=== PATIENT | female | born 1955 | race Caucasian/White ===

== ENCOUNTER 2019-05-16 10:00 | Outpatient (RCR) | payer BC, OTHER, SELFPAY ==
--- NOTE | 2019-04-24 14:53 | PTOPEVAL ---
Thank you for referring this patient to [facility] [place]. Please review, sign, date and return this plan of care JOHN. Pt seen for PT evaluation today to address hip pain with muscle weakness, decreased hip motion, muscle tightness and gait impairments. She requires additional skilled therapy 2x/wk x 4-6 wk to achieve therapy goals. I agree with and certify that the following plan of care is medically necessary. Referring Physician Date Attending Provider: Maryan Carney NP Referring Provider: *PT Outpatient Evaluation Start: 04/24/19 11:04 Freq: Status: Active Protocol: Document 04/24/19 11:04 ISRA (Rec: 04/24/19 12:03 ISRA [id number]) Therapy Assessment Status Assessment Status Assessment Status Evaluation Outpatient Past Medical History Cardiovascular History Hx Hypertension Yes Musculoskeletal History Hx Arthritis Yes: left hip Other History Hx Cancer Yes: neurendocrine of small gut Hx Chemotherapy Yes Evaluation Information Problem Diagnosis left hip pain Onset 03/20/19 Cause stepping over object Subjective Information She was stepping over a baby Query Text:As Reported By Patient/ gate over the holidays (03/20/ Family 19) and felt she torn something in her inner thigh. She did not see the MD after the injury. She limited the use of the left LE with improved pain quickly with limited use. She now has left buttock pain that will radiate into the left left. She has bouts where she has to limit the weight bearing on left LE due to pain. MD visit revealed OA of left hip. She reports the left hip has been painful for 8 months. She attempted to have therapy , but family oblications limited her time. She take ibuprofen with adequate pain relief. She reports limitations with turning motion, steps, walking longer distances. She is limited with climbing ladders, carpenter assistant. STates her walking speed is less due to something feels stuck. Pr
--- NOTE | 2019-05-14 11:23 | PCPTNOTE ---
Patient called & cancelled scheduled appointment this date no reason given.
--- NOTE | 2019-06-13 11:49 | PCPTNOTE ---
Admitting Provider: Attending Provider: Maryan Quinones NP Patient:Evelin Mireles Date of :1955 Patient has not returned for any further treatments since 05/16/2019, therefore she will be discharged from therapy at this time. She was seen for 5 therapy visits from 04/24/19-05/16/19. The goals have not been achieved. Thank you for referring this patient to [facility]. Please review, sign, date and return this discharge summary JOHN. I have been updated about the patient's current status and I agree with discharge from the above service at this time. Referring Physician Date
== END 2019-06-13 12:37 | disposition home or self-care (01) ==
LOC: ANHPT 10:00
PROVIDERS: PCP Internal Medicine; Visit Provider Nurse Practitioner
DX: M25.552 Pain in left hip (principal)
CPT/HCPCS: 97110; 97140; 97161; 97530

== ENCOUNTER 2020-02-20 12:43 | Emergency (ER) | payer BC, OTHER, SELFPAY ==
--- NOTE | ~2020-02-20 | XR_ITS ---
XR chest 2V DATE: 02/20/2020 13:10 INDICATION: Cough, mid to left-sided chest pain for one week TECHNIQUE: 2 views COMPARISON: 04/11/2017 two-view chest FINDINGS: Normal heart size. No hilar or mediastinal enlargement. Aortic arch calcification. Nipple shadows overlie the lower lungs. No pulmonary infiltrate or consolidation, pleural effusion or pulmonary vascular congestion or pneumothorax. Pectus excavatum. Degenerative disc disease of the cervical spine. Diffuse osteopenia. IMPRESSION: No active cardiopulmonary disease Reviewed, dictated and finalized at location A. RITY REPRESENTATIVE
--- NOTE | 2020-02-20 12:48 | ED.GENADULT ---
HPI - General Adult General Chief complaint: Upper Respiratory Infection Stated complaint: cough/pain in chest Time Seen by Provider: 02/20/20 12:47 Source: patient Mode of arrival: ambulatory Limitations: no limitations History of Present Illness HPI narrative: 64-year-old female patient presents to the [facility] with complaints of a cough, shortness of breath and chest pain for the past 3 weeks. Patient states she has had intermittent fevers have ranged anywhere from low-grade fevers up to 102 for the past couple weeks as well. Patient states she has had some ear pain and a little bit of congestion as well as a headache. Patient also complaining of cough, shortness of breath and some midsternal chest pain. Patient states she feels like the left side of her lung hurts especially when she takes in a deep breath. Patient also reports some nausea but denies vomiting or diarrhea. 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 Patient is unsure of which rib either the left or the right that has metastasized to. Patient states she has been taking ibuprofen for her symptoms. Patient states that she thought it could be the chemo causing her symptoms therefore she has not gotten tested yet for COVID-19. Patient is scheduled to have COVID-19 test done at [facility] tomorrow at 230. Related Data Home Medications Medication Instructions Recorded Confirmed amlodipine 10 mg tablet 10 mg PO DAILY 11/18/19 11/18/19 nebivolol 10 mg tablet 10 mg PO DAILY 11/18/19 11/18/19 octreotide acetate 50 mcg/mL 50 mcg SUB-Q .Q4W ml 11/18/19 11/18/19 injection solution everolimus (antineoplastic) 10 mg PO DAILY 02/20/20 02/20/20 [Afinitor] Allergies Allergy/AdvReac Type Severity Reaction Status Date / Time amoxicillin Allergy Unknown Rash Verified 02/20/20 12:59 lisinopril Allergy Unknown unknown Verified 02/20/20 12:59 minocycline Allergy Unknown Pain Verified 02/20/20 12:59 spironolactone Allergy Unknown Pain Verified 02/20/20 12:59 Review of Systems Review of Systems: Narrative: CONSTITUTIONAL: Positive fever, denies chills, or sweats. EYES: Denies visual changes, redness, or discharge. ENT: Denies rhinorrhea, positive congestion, positive mild sore throat, positive bilateral otalgia. CARDIOVASCULAR: Positive chest pain, denies palpitations, or edema. RESPIRATORY: Positive cough with dyspnea. GASTROINTESTINAL: Denies abdominal pain, positive nausea, denies vomiting, or diarrhea. GENITOURINARY: Denies dysuria or hematuria. SKIN: Denies rash or itching. MUSCULOSKELETAL: Denies back pain, joint pain, or myalgia. NEUROLOGIC: Positive headache, denies numbness, or weakness. PSYCHIATRIC: Denies anxiety or depression. [facility] Past Medical History Medical History Hypertension Neuroendocrine cancer Post-menopausal Surgical History Surgical History Hx of LASIK Family History Family History Grandparent Family history of Alzheimer's disease, Onset Age: 86 Sibling Family history of malignant neoplasm of thyroid Other Family history of arthritis Family history of kidney disease Family history of mental disorder Family history of thyroid disease Hypertension Social History Social History Smoking status: Former smoker Smoking end date: 03/26/04 Alcohol intake: current Exam Narrative: Exam Narrative: GENERAL: Well-appearing, well-nourished, and in no acute distress. HEAD: Normocephalic, atraumatic. EYES: PERRLA and EOMI. ENT: Nares clear, no rhinorrhea or epistaxis. Mucous membranes moist. Posterior pharynx with no erythema, tonsillectomy, exudates or lesions present. The bilateral TMs do appear slightly
[2020-02-20 12:50] VITALS: BP 147/89; PULSE 87; RESP 20; TEMP 38.5; O2SAT 99
--- NOTE | 2020-02-20 13:06 | ECG_ITS ---
Measurements Intervals [place] Rate: 78 P: 67 PA: 175 QRS: 56 QRSD: 88 T: 66 QT: 369 QTc: 421 Interpretive Statements SINUS RHYTHM BORDERLINE ST-T WAVE ABNORMALITY- HIGH LATERAL LEADS BORDERLINE ECG Electronically Signed On 02-21-2020 7:49:02 [employer]AD [employer]UCK [employer] by Huy Thompson D.O.
== END 2020-02-20 13:32 | disposition home or self-care (01) ==
PROVIDERS: Emergency Provider Nurse Practitioner Family; PCP Internal Medicine
DX: J06.9 Acute upper respiratory infection, unspecified (principal); Z20.828 Contact with and (suspected) exposure to other viral communicable diseases; Z87.891 Personal history of nicotine dependence; I10 Essential (primary) hypertension
CPT/HCPCS: 71046; 87081; 87804; 87880; 93005; 99213; G0463

== ENCOUNTER 2020-02-26 14:50 | Outpatient (CLI) | payer BC, OTHER, SELFPAY ==
--- NOTE | ~2020-02-26 | XR_ITS ---
EXAMINATION: XR chest 2V DATE: 02/26/2020 15:10 INDICATION: Cough and shortness of breath. Fever and headache. TECHNIQUE: Frontal and lateral views of the chest were obtained. COMPARISON: Chest 2 views 02/20/2020, 04/11/2017, CT abdomen and pelvis 04/11/2017, chest CT 12/11/2011 FINDINGS: There is a diffuse reticulonodular pattern in the lungs. No pleural effusion or pneumothora x. The heart size is normal. Pectus carinatum is noted. IMPRESSION: 1. Worsened diffuse lung disease, consistent with pneumonia. Reviewed, dictated and finalized at location A. BRIDGE ATTENDANT
[2020-02-26 16:07] LABS: Basophils Percent Auto 0.4 % (0.2-1.2); Eosinophils Absolute Auto 0.2 K/mm3 (0-0.3); Eosinophils Percent Auto 3.3 % (0-4.4); Hematocrit 30.5 % (37.0-47.0); Hemoglobin 10.3 g/dL (12.0-15.0); Immature Granulocyte Absolute 0.04 K/mm3 (0.00-0.031); Immature Granulocyte Percent A 0.5 % (0-0.5); Lymphocytes Absolute Auto 2.12 K/mm3 (0.9-3.2); Lymphocytes Percent Auto 28.8 % (18.3-44.2); Mean Corpuscular HGB Conc 33.8 g/dl (32-36); Mean Corpuscular Volume 80.1 fl (80-100); Monocytes Absolute Auto 0.9 K/mm3 (0.1-0.6); Monocytes Percent Auto 11.8 % (2.6-8.5); Neutrophils Absolute Auto 4.1 K/mm3 (1.3-6.7); Neutrophils Percent Auto 55.2 % (45.5-73.1); Platelet Count Result 427 k/mm3 (150-375); Red Blood Count 3.81 M/mm3 (4.2-5.4); Red Cell Distribution Width 12.5 % (11.5-14.5); White Blood Count 7.4 K/mm3 (4.5-10.0)
[2020-02-26 16:18] LABS: Alanine Aminotransferase 24 U/L (4-35); Albumin Level 3.6 g/dL (3.5-5.1); Alkaline Phosphatase 87 U/L (38-126); Anion Gap 6 mmol/L (8-16); Aspartate Amino Transferase 43 U/L (14-36); Bilirubin,Total 0.3 mg/dL (0.2-1.3); Blood Urea Nitrogen 14 mg/dL (7-17); Calcium 8.9 mg/dL (8.4-10.2); Carbon Dioxide 30 mmol/L (22-30); Chloride 95 mmol/L (98-107); Estimated Glomerular Filt Rate 56; Glucose 89 mg/dL (65-105); Potassium 4.2 mmol/L (3.4-5.0); Sodium 131 mmol/L (137-145)
== END 2020-02-26 14:51 | disposition home or self-care (01) ==
PROVIDERS: PCP Internal Medicine; Visit Provider Clinical Nurse Specialist
DX: R05 Cough (principal); R06.02 Shortness of breath; R50.9 Fever, unspecified; R51.9 Headache, unspecified; R91.8 Other nonspecific abnormal finding of lung field
CPT/HCPCS: 36415; 71046; 80053; 85025

== ENCOUNTER 2020-06-25 09:22 | Outpatient (CLI) | payer BC, OTHER, SELFPAY ==
--- NOTE | ~2020-06-25 | XR_ITS ---
EXAMINATION: XR ankle LT min 3V DATE: 06/25/2020 09:40 INDICATION: Left ankle pain and swelling TECHNIQUE: Anteroposterior, oblique, mortise, and lateral views of the left ankle were obtained. COMPARISON: None. FINDINGS: Alignment is normal. No fracture. Joint spaces are well maintained. No cortical erosions, periosteal reaction or suspicious lytic or blastic bone lesions. No ankle joint effusion. Soft tissue swelling about the ankle both medially and laterally. IMPRESSION: 1. No osseous abnormality. Reviewed, dictated and finalized at location A. IMPRESSION: 1. No osseous abnormality.
== END 2020-06-25 09:23 | disposition home or self-care (01) ==
LOC: ANHIMG 09:25
PROVIDERS: PCP Internal Medicine; Visit Provider Nurse Practitioner
DX: M25.572 Pain in left ankle and joints of left foot (principal)
CPT/HCPCS: 73610

== ENCOUNTER 2021-06-08 08:49 | Outpatient (CLI) | payer MEDICARE, BC, OTHER, SELFPAY ==
--- NOTE | ~2021-06-08 | CT_ITS ---
EXAMINATION: CTA abd aorta runoff DATE: 06/08/2021 09:56 INDICATION: Peripheral arterial disease. TECHNIQUE: Computed tomographic angiography (CTA) of the abdominal, pelvis, and both lower extremitie s was performed with 150 mL Omnipaque-350 intravenous contrast. Automated exposure control and iterat griffin reconstruction technique were employed. The dose-length product was 671.85 mGy-cm. Maximum intens ity projection 3D-reconstructions of the arteries were created by the technologist on a separate work station. COMPARISON: CT abdomen and pelvis 04/11/17 FINDINGS: ABDOMINAL AORTA AND ITS BRANCHES: There is atherosclerosis of the abdominal aorta. No aneurysm or dissection. There is chronic total oc clusion of origin of celiac axis. There is no significant stenosis of superior mesenteric artery, the renal arteries, or inferior mesenteric artery. PELVIC VASCULATURE: There is mild stenosis of the common iliac arteries and internal iliac arteries. There is no signific ant stenosis of the external iliac arteries. RIGHT LOWER EXTREMITY VASCULATURE: There is mild stenosis of right common femoral artery. There is no significant stenosis of the profun da femoral artery, superficial femoral artery, popliteal artery, tibioperoneal trunk, anterior tibial artery, posterior tibial artery, or peroneal artery. LEFT LOWER EXTREMITY VASCULATURE: There is mild stenosis of left common femoral artery. There is no significant stenosis of the profund a femoral artery, superficial femoral artery, popliteal artery, tibioperoneal trunk, anterior tibial artery, posterior tibial artery, or peroneal artery. ADDITIONAL FINDINGS: The visualized portions of the lung bases demonstrate mild atelectasis. No pleural effusion. There is diffusely heterogeneous attenuation of the liver. The gallbladder, spleen, pancreas, adrenal glands are normal. There is cortical thinning of the kidneys. The common duct is dilated to 11 mm. The left periuterine and ovarian veins are enlarged, consistent with pelvic venous insufficiency. There are no dilated loops of bowel. The appendix is not visualized. There are numerous hyperenhancing masses in the peritoneum measuring up to 10 mm. There is a 3.3 x 2.1 cm hyperenhancing mass at the root of the small bowel mesentery. There is a small volume of pelvic ascites. IMPRESSION: 1. No significant arterial occlusive disease. 2. 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 3. Heterogeneous liver attenuation, likely a combination of transient hepatic attenuation difference and ill-defined metastatic carcinoid. Reviewed, dictated and finalized at location A. IMPRESSION: 1. No significant arterial occlusive disease. 2. 3.3 x 2.1 cm hyperenhancing mass at the root of the small bowel mesentery an d numerous chronic peritoneal masses, consistent with peritoneal carcinomatosis , most likely carcinoid. 3. Heterogeneous liver attenuation, likely a combination of transient hepatic a ttenuation difference and ill-defined metastatic carcinoid.
[2021-06-08 09:35] LABS: Estimated Glomerular Filt Rate 50
== END 2021-06-08 08:50 | disposition home or self-care (01) ==
PROVIDERS: PCP Internal Medicine; Visit Provider Internal Medicine Cardiovascular Disease
DX: I73.9 Peripheral vascular disease, unspecified (principal)
CPT/HCPCS: 75635; Q9967

== ENCOUNTER 2021-11-14 06:04 | Emergency (ER) | payer MEDICARE, BC, OTHER, SELFPAY ==
[2021-11-14] VITALS (17 sets, daily range): BP systolic 122–156; BP diastolic 62–89; PULSE 60–68; RESP 12–20; TEMP 36.7; O2SAT 100
--- NOTE | ~2021-11-14 | XR_ITS ---
EXAMINATION: XR chest 1V portable DATE: 11/14/2021 07:10 INDICATION: Chest pain. TECHNIQUE: A single frontal view of the chest was obtained. COMPARISON: Chest 2 views 02/26/2020 FINDINGS: There is mild atelectasis in right lower lung zone. No pleural effusion or pneumothorax. Th e heart size is normal. IMPRESSION: 1. Mild atelectasis in right lower lung zone. Reviewed, dictated and finalized at location A.
--- NOTE | ~2021-11-14 | CT_ITS ---
EXAMINATION: CTA chest PE protocol DATE: 11/14/2021 08:41 INDICATION: Chest pain. TECHNIQUE: Computed tomography angiography (CTA) of the chest was performed with 100 mL Omnipaque-350 intravenous contrast timed to evaluate the pulmonary arteries. Coronal maximum intensity projection 3D-reconstructions were created by the technologist. Automated exposure control and iterative reconst ruction technique were employed. The dose-length product was 205.20 mGy-cm. COMPARISON: CT abdomen and pelvis 06/08/2021 FINDINGS: There is mild emphysema. There is mild scarring at the lung apices. There is a 4 mm nodule at left major fissure, likely benign. There is mild atelectasis bilaterally. No pleural effusion. The heart size is normal. There are coronary artery calcifications. There is a moderate-sized pericardia l effusion. There is no pulmonary embolus. There is mild thoracic spondylosis. Pectus excavatum is no fermín. IMPRESSION: 1. No pulmonary embolus. 2. Moderate-sized pericardial effusion. 3. Mild emphysema. 4. Mild scarring at the lung apices. Reviewed, dictated and finalized at location A.
--- NOTE | 2021-11-14 06:13 | ECG_ITS ---
Measurements Intervals [place] Rate: 67 P: 66 TN: 210 QRS: 47 QRSD: 89 T: 69 QT: 429 QTc: 456 Interpretive Statements SINUS RHYTHM WITH FIRST DEGREE AV BLOCK NONSPECIFIC ST ABNORMALITY BORDERLINE ECG COMPARED TO ECG 02/20/2020 13:11:18 FIRST DEGREE AV BLOCK NOW PRESENT Electronically Signed On 11-14-2021 16:19:16 CDT by Christiano Emmanuel M.D.
[2021-11-14 06:54] LABS: Basophils Percent Auto 0.4 % (0.2-1.2); Eosinophils Absolute Auto 0.1 K/mm3 (0-0.3); Eosinophils Percent Auto 1.7 % (0-4.4); Hematocrit 38.9 % (37.0-47.0); Lymphocytes Absolute Auto 2.36 K/mm3 (0.9-3.2); Lymphocytes Percent Auto 50.4 % (18.3-44.2); Mean Corpuscular HGB Conc 33.4 g/dl (32-36); Mean Corpuscular Hemoglobin 26.1 pg (26-34); Mean Platelet Volume 9.8 fl (7.4-10.4); Monocytes Absolute Auto 0.5 K/mm3 (0.1-0.6); Monocytes Percent Auto 11.5 % (2.6-8.5); Neutrophils Absolute Auto 1.7 K/mm3 (1.3-6.7); Platelet Count Result 304 k/mm3 (150-375); Red Blood Count 4.99 M/mm3 (4.2-5.4); White Blood Count 4.7 K/mm3 (4.5-10.0)
[2021-11-14 07:01] LABS: INR 0.9; Partial Thromboplastin Time 28.1 SECONDS (22.3-36.8)
[2021-11-14 07:03] LABS: Alanine Aminotransferase 35 U/L (6-35); Albumin Level 4.2 g/dL (3.5-5.1); Alkaline Phosphatase 86 U/L (38-126); Anion Gap 6 mmol/L (8-16); Aspartate Amino Transferase 49 U/L (14-36); Bilirubin,Total 0.4 mg/dL (0.2-1.3); Blood Urea Nitrogen 17 mg/dL (7-17); Calcium 8.7 mg/dL (8.4-10.2); Carbon Dioxide 35 mmol/L (22-30); Chloride 95 mmol/L (98-107); Estimated CRCL calculation 48 ml/min; Estimated Glomerular Filt Rate > 60; Glucose 125 mg/dL (65-110); Lipase 61 U/L (23-300); Potassium 3.5 mmol/L (3.4-5.0); Sodium 136 mmol/L (137-145)
[2021-11-14] MEDS: ASPIRIN 81 MG CHEWABLE TABLET 324 MG PO (07:03)
[2021-11-14 07:14] LABS: Troponin I < 0.012 ng/mL (0.000-0.034)
--- NOTE | 2021-11-14 08:10 | ED.CHESTPAIN ---
HPI - Chest Pain General Chief Complaint: Chest Pain Stated Complaint: palpitations, CP, COVID+ one week ago Time Seen by Provider: 11/14/21 06:59 Source: RN notes reviewed History of Present Illness HPI narrative: Patient presents emergency department from home for palpitations. Patient states symptoms began this morning states around 5 AM this morning she was laying in bed when she felt like her heart was fluttering states this lasted for approximately 30 minutes and resolved she had no feeling since that time. States the feeling is like her heart is turned sideways and is beating across her chest she notes mild feeling of chest tightness with that feeling she denies any fevers or chills shortness of breath abdominal pain nausea vomiting or any other symptoms. Patient states she was diagnosed with COVID-19 approximately 1 week ago. Related Data Home Medications Medication Instructions Recorded Confirmed amlodipine 10 mg tablet 10 mg PO DAILY 11/18/19 07/26/21 nebivolol 10 mg tablet (Bystolic) 10 mg PO DAILY 11/18/19 07/26/21 octreotide acetate 50 mcg/mL 50 mcg subcut .[id number] 04/26/21 07/26/21 injection solution aspirin 81 mg chewable tablet 81 mg PO DAILY 06/01/21 07/26/21 everolimus (antineoplastic) 10 mg 5 mg PO DAILY 07/26/21 07/26/21 tablet ferric citrate 210 mg iron tablet 210 mg PO DAILY 07/26/21 07/26/21 Allergies Allergy/AdvReac Type Severity Reaction Status Date / Time amoxicillin Allergy Unknown Rash Verified 11/14/21 07:06 minocycline Allergy Unknown Pain Verified 11/14/21 07:06 spironolactone Allergy Unknown Pain Verified 11/14/21 07:06 Review of Systems Review of Systems: Reports COVID Gen.: Denies fevers or chills Eyes: Denies eye pain or visual change ENT: Denies congestion Respiratory: Denies shortness of breath or cough CV: see HPI GI: Denies abdominal pain nausea, emesis or diarrhea Musculoskeletal: Denies back pain or muscle pain Neuro: Denies numbness, tingling, weakness or focal weakness Skin: Denies rash Except as documented, all other systems reviewed and negative PMFSH Past Medical History Medical History Hip pain Hypertension Hypertension Neuroendocrine cancer Neuroendocrine cancer Disorder Post-menopausal Post-menopausal Surgical History Surgical History Hx of LASIK Hx of LASIK Family History Family History Grandparent Family history of Alzheimer's disease, Onset Age: 86 Sibling Family history of malignant neoplasm of thyroid Father Heart failure Mother Heart failure Endocrine disorder Grandparent Alzheimer disease Kidney failure Sibling Thyroid cancer Cancer Other Family history of arthritis Family history of kidney disease Family history of mental disorder Family history of thyroid disease Hypertension Social History Social History Smoking status: Former smoker Tobacco type: cigarettes Smoking end date: 03/26/04 Alcohol intake: current Exam Narrative: APPEARANCE: No acute distress, nontoxic, resting in bed EYES: EOMI HEENT: Normocephalic, atraumatic, OMM RESPIRATORY: No respiratory distress Clear to auscultation bilaterally with no rhonchi wheezing or rales. CARDIOVASCULAR: Regular rate and rhythm without murmurs rubs or gallops. ABDOMINAL: Soft, nontender, nondistended, no rebound or guarding MUSCULOSKELETAl: Moves all extremities. No clubbing, cyanosis or edema. NEURO: Awake and alert. Following commands, speech normal, no focal deficits SKIN:: Warm, dry. No rashes lesions or abrasions PSYCHIATRIC: Normal affect/mood, Course Course Emergency Course: Called discussed with RANDY Amaro for Dr. Emmanuel presentation and work-up I discussed the pericardial effusion she will discuss with on-call ca
[2021-11-14 08:19] LABS: D Dimer 0.77 ug/mL (<0.48)
[2021-11-14 09:24] LABS: Troponin I < 0.012 ng/mL (0.000-0.034)
== END 2021-11-14 11:19 | disposition home or self-care (01) ==
PROVIDERS: General Practice; Emergency Provider Emergency Medicine; PCP Internal Medicine
DX: I31.3 Pericardial effusion (noninflammatory) (principal); R00.2 Palpitations; I10 Essential (primary) hypertension; Z86.16 Personal history of COVID-19
CPT/HCPCS: 36415; 71045; 71275; 80053; 83690; 84484; 85025; 85380; 85610; 85730; 93005; 99284; A9270; Q9967

== ENCOUNTER 2022-06-06 11:35 | Outpatient (CLI) | payer MEDICARE, BC, OTHER, SELFPAY ==
--- NOTE | ~2022-06-06 | XR_ITS ---
EXAMINATION: XR chest 2V DATE: 06/06/2022 11:57 INDICATION: Cough and fever TECHNIQUE: PA and lateral views of the chest were obtained. COMPARISON: Chest radiograph and CT dated 11/14/2021 FINDINGS: Mild hyperexpansion of lungs consistent with emphysema better appreciated on prior chest CT. Mild theresa pical pleural-parenchymal scarring. New mild opacities at the left lung base. Symmetric nipple shadow s project between the anterior fifth and sixth ribs on both the left and right. No other airspace opa cities, pulmonary edema, pleural effusion or pneumothorax. The cardiomediastinal silhouette is normal . Pectus excavatum. IMPRESSION: 1. New mild opacities at the left lung base which could represent atelectasis or pneumonia. 2. Mild emphysema. Reviewed, dictated and finalized at location L. IMPRESSION: 1. New mild opacities at the left lung base which could represent atelectasis o r pneumonia. 2. Mild emphysema.
== END 2022-06-06 11:36 | disposition home or self-care (01) ==
PROVIDERS: PCP Internal Medicine; Visit Provider Clinical Nurse Specialist
DX: R05.9 Cough, unspecified (principal); Z87.01 Personal history of pneumonia (recurrent); J43.9 Emphysema, unspecified; R91.8 Other nonspecific abnormal finding of lung field
CPT/HCPCS: 71046

== ENCOUNTER 2022-06-17 08:06 | Emergency (ER) | payer MEDICARE, BC, OTHER, SELFPAY ==
--- NOTE | ~2022-06-17 | XR_ITS ---
EXAMINATION: XR chest 2V DATE: 06/17/2022 08:35 INDICATION: Chest pain and dizziness TECHNIQUE: PA and lateral views of the chest are obtained. COMPARISON: 06/06/2022 FINDINGS: The lungs are free of acute opacities. No pleural effusion or pneumothorax. The cardiomedia stinal silhouette is normal. There is mild thoracic spondylosis. IMPRESSION: 1. No acute cardiopulmonary abnormality. Reviewed, dictated and finalized at location A.
--- NOTE | 2022-06-17 08:09 | ECG_ITS ---
Measurements Intervals [place] Rate: 84 P: [place]: 0 QRS: 71 QRSD: 93 T: 76 QT: 381 QTc: 453 Interpretive Statements SINUS RHYTHM WITH MARKED FIRST DEGREE AV BLOCK BORDERLINE R WAVE PROGRESSION, ANTERIOR LEADS BORDERLINE T WAVE ABNORMALITY- ANTERIOR LEADS BASELINE ARTIFACT- I, II, III, AVR, AVL, AVF ABNORMAL ECG COMPARED TO ECG 11/14/2021 06:23:55 NO SIGNIFICANT CHANGES Electronically Signed On 06-17-2022 16:26:41 CDT by Huy Thompson D.O.
[2022-06-17 08:10] VITALS: BP 115/77; PULSE 85; RESP 17; TEMP 36.6; O2SAT 100
[2022-06-17 08:13] VITALS: PULSE 85
[2022-06-17 08:24] LABS: Basophils Absolute Auto 0.1 K/mm3 (0.0-0.1); Basophils Percent Auto 0.8 % (0.2-1.2); Eosinophils Absolute Auto 0.4 K/mm3 (0-0.3); Hematocrit 38.5 % (37.0-47.0); Hemoglobin 12.6 g/dL (12.0-15.0); Immature Granulocyte Absolute 0.02 K/mm3 (0.00-0.031); Immature Granulocyte Percent A 0.3 % (0-0.5); Mean Corpuscular HGB Conc 32.7 g/dl (32-36); Mean Corpuscular Hemoglobin 25.2 pg (26-34); Monocytes Absolute Auto 0.6 K/mm3 (0.1-0.6); Monocytes Percent Auto 8.1 % (2.6-8.5); Neutrophils Absolute Auto 3.5 K/mm3 (1.3-6.7); Neutrophils Percent Auto 46.8 % (45.5-73.1); Platelet Count Result 516 k/mm3 (150-375); Red Cell Distribution Width 12.5 % (11.5-14.5); White Blood Count 7.4 K/mm3 (4.5-10.0)
[2022-06-17 08:35] LABS: INR 1.1; Partial Thromboplastin Time 31.5 SECONDS (22.3-36.8); Prothrombin Time 13.3 Seconds (11.1-14.7)
[2022-06-17 08:38] LABS: Alanine Aminotransferase 34 U/L (6-35); Albumin Level 4.3 g/dL (3.5-5.1); Alkaline Phosphatase 144 U/L (38-126); Anion Gap 9 mmol/L (8-16); Aspartate Amino Transferase 51 U/L (14-36); Bilirubin,Total 0.5 mg/dL (0.2-1.3); Blood Urea Nitrogen 20 mg/dL (7-17); Calcium 9.2 mg/dL (8.4-10.2); Carbon Dioxide 29 mmol/L (22-30); Chloride 99 mmol/L (98-107); Estimated CRCL calculation 43 ml/min; Estimated Glomerular Filt Rate 55; Glucose 137 mg/dL (65-110); Lipase 87 U/L (23-300); Potassium 3.4 mmol/L (3.4-5.0); Sodium 137 mmol/L (137-145)
[2022-06-17] MEDS: ASPIRIN 81 MG CHEWABLE TABLET 324 MG PO (08:41)
[2022-06-17 08:49] LABS: Troponin I < 0.012 ng/mL (0.000-0.034)
[2022-06-17 09:23] VITALS: BP 123/68; PULSE 68; RESP 17; O2SAT 100
--- NOTE | 2022-06-17 09:23 | ED.CHESTPAIN ---
HPI - Chest Pain General Chief Complaint: Chest Pain Stated Complaint: chest pain Time Seen by Provider: 06/17/22 08:50 History of Present Illness HPI narrative: 67-year-old female history of hypertension, anemia, neuroendocrine cancer and mitral valve regurgitation, presents to the emergency room for evaluation of palpitations. Patient states over the last 3 days she has been experiencing palpitations that lasted anywhere from 5 minutes to 1 hour. Episodes been occurring in the morning. States the palpitations occur when she is laying in bed. Associated with shortness of breath. States that she was seen by her site operations manager last week, and was told to follow-up in 1 year. Patient is also being managed by an research center partner at [facility], had lab work drawn on Sunday. Was told to restart daily iron supplementation. States palpitations began the following day after restarting her iron. Presently denying any chest pain. Related Data Home Medications Medication Instructions Recorded Confirmed amlodipine 10 mg tablet 10 mg PO DAILY 11/18/19 06/06/22 nebivolol 10 mg tablet (Bystolic) 10 mg PO DAILY 11/18/19 06/06/22 octreotide acetate 50 mcg/mL 50 mcg subcut .[id number] 04/26/21 06/06/22 injection solution aspirin 81 mg chewable tablet 81 mg PO DAILY 06/01/21 06/06/22 everolimus (antineoplastic) 10 mg 5 mg PO DAILY 07/26/21 06/06/22 tablet atorvastatin 10 mg tablet 10 mg PO DAILY 06/06/22 06/06/22 levothyroxine 25 mcg tablet 10 mcg PO DAILY 06/06/22 06/06/22 (Synthroid) Allergies Allergy/AdvReac Type Severity Reaction Status Date / Time amoxicillin Allergy Unknown Rash Verified 06/17/22 08:13 minocycline Allergy Unknown Pain Verified 06/17/22 08:13 spironolactone Allergy Unknown Pain Verified 06/17/22 08:13 Review of Systems Review of Systems: CONSTITUTIONAL: Denies fever, chills, or sweats. EYES: Denies visual changes, redness, or discharge. ENT: Denies rhinorrhea, congestion, sore throat, or otalgia. CARDIOVASCULAR: Reports palpitations RESPIRATORY: Denies cough or dyspnea. GASTROINTESTINAL: Reports suprapubic discomfort GENITOURINARY: Denies dysuria or hematuria. SKIN: Denies rash or itching. MUSCULOSKELETAL: Denies back pain, joint pain, or myalgia. NEUROLOGIC: Denies headache, numbness, dizziness, or weakness. PSYCHIATRIC: Denies anxiety or depression. PMFSH Past Medical History Medical History COVID-19 Hip pain Hypertension Hypertension Mitral valve regurgitation Neuroendocrine cancer Neuroendocrine cancer Disorder Post-menopausal Post-menopausal Surgical History Surgical History Hx of LASIK Hx of LASIK Family History Family History Grandparent Family history of Alzheimer's disease, Onset Age: 86 Sibling Family history of malignant neoplasm of thyroid Father Heart failure Mother Heart failure Endocrine disorder Grandparent Alzheimer disease Kidney failure Sibling Thyroid cancer Cancer Other Family history of arthritis Family history of kidney disease Family history of mental disorder Family history of thyroid disease Hypertension Social History Social History (Updated 06/06/22 @ 10:56 by Jesusita Yi) Social History: Caffeine-1 cup daily Smoking status: Former smoker Tobacco type: cigarettes Smoking end date: 03/26/04 Alcohol intake: current Alcohol use details: rarely Lack of Transportation: No Lack of Food: Never True Current Housing: I Have Housing Concerned About Future Housing: No Difficulty Paying Gas/Electric Bills: No Difficulty Paying for Meds: No Currently Unemployed: No Education: Bachelor's Degree Difficulty w/ Childcare or Family Care: No Exam Narrative: GENERAL: Well-appearing, well-nourished, no physical limitations, and in no acute distress. HEAD: Norm
[2022-06-17 10:21] LABS: Appearance Urine Clear (Clear); Bilirubin Urine Negative (Negative); Blood Urine Negative (Negative); Color Urine Yellow (Yellow); Glucose Urine UA Negative (Negative); Ketones Urine Negative (Negative); Leukocyte Esterase Ur Negative LEU/UL (Negative); Nitrate Urine Negative (Negative); Protein Urine Negative (Negative); Specific Grav Ur 1.009 (1.001-1.035); Urobilinogen Urine 0.2 mg/dL (<2.0); pH Urine 7.5 (5.0-9.0)
[2022-06-17 10:22] LABS: Add Urine Microscopic? NO
[2022-06-17 10:58] VITALS: BP 125/61; PULSE 64; RESP 18; O2SAT 100
== END 2022-06-17 11:10 | disposition home or self-care (01) ==
PROVIDERS: Emergency Medicine; Emergency Provider Nurse Practitioner Family; PCP Internal Medicine
DX: R00.2 Palpitations (principal); R53.1 Weakness; I10 Essential (primary) hypertension; Z85.858 Personal history of malignant neoplasm of other endocrine glands; Z79.82 Long term (current) use of aspirin; Z87.891 Personal history of nicotine dependence
CPT/HCPCS: 36415; 71046; 80053; 81003; 83690; 84443; 84484; 85025; 85610; 85730; 93005; 99284; A9270

== ENCOUNTER 2022-09-25 14:57 | Outpatient (CLI) | payer MEDICARE, BC, SELFPAY ==
--- NOTE | ~2022-09-25 | US_ITS ---
EXAMINATION: US arterial ankle brachial ind DATE: 09/25/2022 15:56 INDICATION: Peripheral vascular disease TECHNIQUE: Segmental pressures and plethysmographic and Doppler waveforms of the brachial and lower e xtremity arteries were obtained. COMPARISON: None. FINDINGS: Right and left brachial artery pressures of 175 mm Hg and 164 mm Hg, respectively, are concordant (no rmal difference <= 30 mmHg). The right ankle-brachial index (ILA) is 0.86 (normal >= 0.9-1.0). The right great toe-brachial index (TBI) is 0.66 (normal >= 0.65). Arterial Doppler waveforms are biphasic with brisk systolic upstrokes at both right posterior tibial and dorsalis pedis arteries. The left ILA is 0.90. The left TBI is 0.66. Arterial Doppler waveforms are biphasic with brisk systol ic upstrokes at both left posterior tibial and dorsalis pedis arteries. IMPRESSION: 1. Mild arterial occlusive disease with mildly decreased right ILA and borderline left ILA. Reviewed, dictated and finalized at location B. IMPRESSION: 1. Mild arterial occlusive disease with mildly decreased right ILA and borderli ne left ILA.
== END 2022-09-25 14:58 | disposition home or self-care (01) ==
PROVIDERS: PCP Internal Medicine; Visit Provider Internal Medicine Cardiovascular Disease
DX: M79.605 Pain in left leg (principal); M79.604 Pain in right leg; I73.9 Peripheral vascular disease, unspecified
CPT/HCPCS: 93922

== ENCOUNTER 2022-12-12 08:57 | Emergency (ER) | payer MEDICARE, BC, OTHER, SELFPAY ==
--- NOTE | ~2022-12-12 | XR_ITS ---
EXAMINATION: XR chest 2V DATE: 12/12/2022 09:33 INDICATION: Cough TECHNIQUE: PA and lateral views of the chest are obtained. COMPARISON: 06/17/2022 FINDINGS: The lungs are free of acute opacities. No pleural effusion or pneumothorax. The cardiomedia stinal silhouette is normal. There is mild thoracic spondylosis. IMPRESSION: 1. No acute cardiopulmonary abnormality. Reviewed, dictated and finalized at location L.
--- NOTE | ~2022-12-12 | XR_ITS ---
EXAMINATION: XR lumbar spine 2-3V DATE: 12/12/2022 09:33 INDICATION: Low back pain TECHNIQUE: Anteroposterior and lateral views of the lumbar spine, and cone-down lateral view of the l umbosacral junction were obtained. COMPARISON: CT, 04/11/2017 FINDINGS: Bone alignment is normal. No fracture is identified. There is moderate loss of intervertebr al disc space height at L4-5 and mild loss of intervertebral disc space height throughout the remaind er of the lumbar spine. Small degenerative osteophytes project from the anterior endplates of multipl e vertebral bodies. There is moderate facet joint osteoarthritis of the lower lumbar spine. Calcified atherosclerosis is noted. IMPRESSION: 1. Moderate lumbar spondylosis without acute findings or significant interval change. Reviewed, dictated and finalized at location L. IMPRESSION: 1. Moderate lumbar spondylosis without acute findings or significant interval jaylen landa
--- NOTE | 2022-12-12 09:01 | ED.URI ---
HPI - URI/Sore Throat General Chief Complaint: Upper Respiratory Infection Stated Complaint: CHEST CONGESTION/BACK PAIN Time Seen by Provider: 12/12/22 09:00 Source: patient Mode of arrival: ambulatory Limitations: no limitations History of Present Illness HPI Narrative: Evelin is a 67-year-old female patient presenting to the clinic today with complaints of malaise, cough, chest congestion, and mid low back pain with radiation of pain to the right hip and down the right leg. She reports the back pain is been going on for a couple weeks now. Feels as though she may have pneumonia and she has had pneumonia before and felt this way. Has had some shortness of breath with exertion. She reports a productive cough but is unable to expel the phlegm. History of ruptured disc in her back. MD elicited complaint: cough, rhinorrhea, nasal congestion and other (Malaise, mid low back pain) Related Data Home Medications Medication Instructions Recorded Confirmed amlodipine 10 mg tablet 10 mg PO DAILY 11/18/19 12/12/22 octreotide acetate 50 mcg/mL 50 mcg subcut .[id number] 04/26/21 12/12/22 injection solution levothyroxine 25 mcg tablet 10 mcg PO DAILY 06/06/22 12/12/22 (Synthroid) everolimus (antineoplastic) 7.5 mg 7.5 mg PO DAILY 06/28/22 12/12/22 tablet aspirin 81 mg tablet,delayed 81 mg PO DAILY 12/12/22 12/12/22 release iron 150 mg-C 60 mg-B12 25 1 cap PO DAILY 12/12/22 12/12/22 mcg-folic acid 1 qc-vxyduwe-dd.acid capsule (Ferrex) nebivolol 20 mg tablet 20 mg PO DAILY 12/12/22 12/12/22 pravastatin 20 mg tablet 20 mg PO DAILY 12/12/22 12/12/22 Allergies Allergy/AdvReac Type Severity Reaction Status Date / Time amoxicillin Allergy Unknown Rash Verified 12/12/22 09:01 minocycline Allergy Unknown Pain Verified 12/12/22 09:01 spironolactone Allergy Unknown Pain Verified 12/12/22 09:01 Review of Systems Review of Systems: Pertinent positives per HPI. Patient denies any fever, chills, rash, headache, visual changes, dizziness, chest pain, palpitations, nausea, vomiting, diarrhea, constipation, abdominal pain, or any urinary issues. PMFSH Past Medical History Medical History (Updated 12/12/22 @ 09:48 by Phoenix Beasley APRN) Coronary artery disease (CAD) excluded COVID-19 Hip pain Hypertension Hypertension Mitral valve regurgitation Neuroendocrine cancer Neuroendocrine cancer Disorder Post-menopausal Post-menopausal Surgical History Surgical History Hx of LASIK Hx of LASIK Family History Family History Grandparent Family history of Alzheimer's disease, Onset Age: 86 Sibling Family history of malignant neoplasm of thyroid Father Heart failure Mother Heart failure Endocrine disorder Grandparent Alzheimer disease Kidney failure Sibling Thyroid cancer Cancer Other Family history of arthritis Family history of kidney disease Family history of mental disorder Family history of thyroid disease Hypertension Social History Social History Social History: Caffeine-1 cup daily Smoking status: Former smoker Tobacco type: cigarettes Smoking end date: 03/26/04 Alcohol intake: current Alcohol use details: rarely Lack of Transportation: No Lack of Food: Never True Current Housing: I Have Housing Concerned About Future Housing: No Difficulty Paying Gas/Electric Bills: No Difficulty Paying for Meds: No Currently Unemployed: No Education: Bachelor's Degree Difficulty w/ Childcare or Family Care: No Comments At the time of my signature, I reviewed and agree with the nursing past medical, surgical, social, and family history. There is no relevant family history pertinent to the patient complaint. Exam Narrative: General: Well-developed, well nourished, in no apparent distre
[2022-12-12 09:10] VITALS: BP 114/63; PULSE 67; RESP 18; TEMP 36.6; O2SAT 100
== END 2022-12-12 09:51 | disposition home or self-care (01) ==
PROVIDERS: Emergency Provider Nurse Practitioner Family; PCP Internal Medicine
DX: J06.9 Acute upper respiratory infection, unspecified (principal); M54.41 Lumbago with sciatica, right side; Z87.891 Personal history of nicotine dependence; I25.10 Atherosclerotic heart disease of native coronary artery without angina pectoris; I10 Essential (primary) hypertension; I34.0 Nonrheumatic mitral (valve) insufficiency; Z85.89 Personal history of malignant neoplasm of other organs and systems; Z79.82 Long term (current) use of aspirin
CPT/HCPCS: 71046; 72100; 99214; G0463

== ENCOUNTER 2022-12-18 15:40 | Outpatient (CLI) | payer MEDICARE, BC, OTHER, SELFPAY ==
--- NOTE | ~2022-12-18 | XR_ITS ---
EXAMINATION: XR hip RT min 2V DATE: 12/18/2022 16:04 INDICATION: Right hip pain. TECHNIQUE: 2 views of right hip were obtained. COMPARISON: None. FINDINGS: Bone alignment is normal. No fracture. There is mild right hip osteoarthritis. IMPRESSION: 1. Mild right hip osteoarthritis. Reviewed, dictated and finalized at location A.
== END 2022-12-18 15:41 | disposition home or self-care (01) ==
PROVIDERS: PCP Internal Medicine; Visit Provider Internal Medicine
DX: M16.11 Unilateral primary osteoarthritis, right hip (principal)
CPT/HCPCS: 73502

== ENCOUNTER 2023-01-25 12:30 | Outpatient (RCR) | payer MEDICARE, BC, OTHER, SELFPAY ==
--- NOTE | 2022-12-28 16:53 | OPREHPOC ---
Outpatient Therapy Plan of Care This is a Multidisciplinary Plan of Care that may contain components documented by all disciplines (PT, OT, and ST.) PT Problem 1 PT Problem #1 Knowledge Deficit PT Goal 1 Goal Pt to be IND with issued HEP Target Visit 4 PT Problem 2 PT Problem #2 Pain PT Goal 1 Goal Pt to report back pain no greater than 3/10 in the last week. Target Visit 4 PT Goal 2 Goal Pt to report hip pain no greater than 3/10 in the last week. Target Visit 4 PT Problem 3 PT Problem #3 Pain PT Goal 1 Goal Pt to report 75% improvement in overall symptoms PT Problem 4 PT Problem #4 Impaired Strength PT Goal 1 Goal Pt to demonstrate asmita hip strength of grossly 4+/5 . Target Visit 4
--- NOTE | 2022-12-28 16:53 | PTOPEVAL1 ---
Assessment and note entered by Gabriel Dunn, PT, DPT Evaluation Information Assessment Status Evaluation Diagnosis R hip pain and low back pain Onset 6 weeks Subjective Information Pt states she has had intermittent R hip and back pain for about the last 6 weeks. She states she picked up a 50lb bag of rocks, went on a long road trip, and slept in a hotel bed, she states one of these she attributed to her pain. She states it feels like her hip is dislocating if she steps on it the wrong way. She reports a consistent dull ache at rest, and a sharp stabbing pain if she moves the wrong way. She states her back and her hip pain feel like two different types of pain. Reported Pain Level Pain Score 1,0: Self Report Assessment PT Clinical Summary Evelin presents to therapy today for her intial evaluation with a diagnosis of R hip pain. Today she demonstrates hip flexor tightness, global hip weakness throughout, and increased lateral pelvic motion during ambulation. She demonstrates good hip ROM asmita. She has pain with R hip flexor tendon insertion. Skilled therapy services are indicated to improve hip mobility, improve hip strength, to manage pain, and to return to PLOF. Plan of Care Interventions Electrical Stimulation,Gait Training,Hot Pack/Cold Pack,Manual Therapy,Neuro Re-education,Patient/ Caregiver Educati,Therapeutic Activities, Therapeutic Exercise PT Services Indicated Yes Treatment Frequency and 1x/wk for 4 visits Duration These treatments will address the objective and functional deficits as defined above. The patient will be advanced safely and appropriately in order for the patient to progress towards his/her prior level of function. Additional exercises will be introduced and as well as a comprehensive home exercise program upon discharge, if needed, ?to ensure carryover of functional gains achieved in the clinic. This treatment plan has been reviewed and agreement upon by the patient.
--- NOTE | 2023-01-05 11:59 | PCPTNOTE ---
Patient called & cancelled scheduled appointment this date due to being out of town.
--- NOTE | 2023-01-16 11:48 | PCPTNOTE ---
Patient canceled this date but gave no reason.
--- NOTE | 2023-01-25 12:54 | PTOPDC ---
Assessment and note entered by Gabriel Dunn, PT, DPT Evaluation Information Assessment Status Discharge Diagnosis R hip pain and low back pain Onset 6 weeks Subjective Information Pt states she is doing really well and almost does not even notice hip pain anymore. She states she does her exercises daily and gets a little sore with these. She states she has been doing some of the exercises but not the ones that cause a lot of exertion because she feels like she is anemic, she plans to follow up with her oncologist about this on Sunday. Reported Pain Level Pain Score 0,0: Self Report Assessment PT Clinical Summary Evelin presents to therapy today for her progress report following 3 visits of therapy to treat her R hip pain. Today she reports 97% improvement in overall symptoms. She has met all of her therapy goals and is able to perform her HEP without compensations. She no longer requires skilled services and will be discharged at this time. Plan of Care PT Services Indicated No
== END 2023-01-25 14:17 | disposition home or self-care (01) ==
LOC: ANHGOSHPT 12:30
PROVIDERS: PCP Internal Medicine; Visit Provider Internal Medicine
DX: M25.551 Pain in right hip (principal)
CPT/HCPCS: 97110; 97161; 97530

== ENCOUNTER 2023-04-04 02:04 | Day surgery (SDC) | payer MEDICARE, BC, OTHER, SELFPAY ==
[2023-03-12 14:15] VITALS: BMI 19.6
--- NOTE | 2023-04-02 12:17 | SUR.PREOP ---
Patient called regarding upcoming procedure. Message left pt's voicemail regarding appointment times.
--- NOTE | 2023-04-03 15:00 | PM.HPGS ---
History of Present Illness History of Present Illness Consent: Risks, benefits, and alternatives have been discussed and questions answered. Patient agrees to proceed with procedure. Chief complaint: Iron deficiency anemia Narrative: Evelin Mireles is a 67 year old female referred for colonoscopy due to anemia. Her last hemoglobin was 12.6. She has required frequent iron infusions. Review of Systems Review of Systems: All systems reviewed & are unremarkable except as noted in HPI and below PMFSH Past Medical History Medical History Coronary artery disease (CAD) excluded COVID-19 Hip pain Hypertension Hypertension Mitral valve regurgitation Neuroendocrine cancer Neuroendocrine cancer Disorder Post-menopausal Post-menopausal Surgical History Surgical History Hx of LASIK Hx of LASIK Family History Family History Grandparent Family history of Alzheimer's disease, Onset Age: 86 Sibling Family history of malignant neoplasm of thyroid Father Heart failure Mother Heart failure Endocrine disorder Grandparent Alzheimer disease Kidney failure Sibling Thyroid cancer Cancer Other Family history of arthritis Family history of kidney disease Family history of mental disorder Family history of thyroid disease Hypertension Social History Social History Social History: Caffeine-1 cup daily Smoking packs per day: 1 Smoking cigarettes per day: 20.0 Years smoked: 33 Smoking pack-years: 33.00 Smoking status: Former smoker Tobacco type: cigarettes Smoking end date: 03/26/04 Alcohol intake: current Drinks per week: 5 Alcohol use details: rarely Substance use: never Substance use type: does not use Lack of Transportation: No Lack of Food: Never True Current Housing: I Have Housing Concerned About Future Housing: No Difficulty Paying Gas/Electric Bills: No Difficulty Paying for Meds: No Currently Unemployed: No Education: Bachelor's Degree Difficulty w/ Childcare or Family Care: No Living arrangements: with family Spiritual care concerns: No Meds Home Medications and Allergies Home Medications Medication Instructions Recorded Confirmed Type amlodipine 10 mg tablet 10 mg PO DAILY 11/18/19 04/04/23 History octreotide acetate 50 mcg/mL 50 mcg subcut .[id number] 04/26/21 04/04/23 History injection solution everolimus (antineoplastic) 7.5 mg 7.5 mg PO DAILY 06/28/22 04/04/23 History tablet aspirin 81 mg tablet,delayed 81 mg PO DAILY 12/12/22 04/04/23 History release iron 150 mg-C 60 mg-B12 25 1 cap PO DAILY 12/12/22 04/04/23 History mcg-folic acid 1 [id number]-[id number].acid capsule (Ferrex) nebivolol 20 mg tablet 10 mg PO DAILY 12/12/22 04/04/23 History levothyroxine 50 mcg tablet 50 mcg PO DAILY #1 tablet 02/20/23 04/04/23 Rx (Synthroid) Fish Oil 2 tablet PO DAILY 03/12/23 04/04/23 History Super B Complex 1 tablet PO DAILY 03/12/23 04/04/23 History garlic 1 tablet PO DAILY 03/12/23 04/04/23 History Allergies Allergy/AdvReac Type Severity Reaction Status Date / Time amoxicillin Allergy Unknown Rash Verified 04/04/23 08:11 minocycline Allergy Unknown Pain Verified 04/04/23 08:11 spironolactone Allergy Unknown Pain Verified 04/04/23 08:11 Exam Resp: Auscultation: clear to auscultation bilaterally Cardio: Rate: regular rate Rhythm: regular rhythm GI: GI Palp: Yes Soft to palpation and No Tenderness to palpation present (GI) Assessment and Plan Assessment and plan (1) Iron deficiency anemia: Qualifiers: Iron deficiency anemia type: unspecified iron deficiency Qualified Code(s): D50.9 - Iron deficiency anemia, unspecified Code(s): D50.9 - Iron deficiency anemia, unspecified
[2023-04-04 08:14] VITALS: BP 104/62; PULSE 67; RESP 16; TEMP 36.1; O2SAT 100; BMI 19.0
[2023-04-04] MEDS: LACTATED RINGERS 1,000 ML 150 ML IV CONT (08:27)
--- NOTE | 2023-04-04 08:51 | WPDANESEPPF ---
Anes - Initial Pre Proc Eval Procedure: Operation Date: 04/04/23 09:30 Proposed Procedures p Colonoscopy - Yahir Feliciano MD Date/Time: 04/04/23 08:51 Surgeon: Yahir Feliciano MD Pre Op Diagnosis: Iron deficiency anemia Patient Data Age: 67 Gender: F Height: 1.7 m Weight: 55.1 kg Last Vital Signs Temp 96.9 F L 04/04/23 08:14 Pulse 67 04/04/23 08:14 Resp 16 04/04/23 08:14 BP 104/62 04/04/23 08:14 Pulse Ox 100 04/04/23 08:14 O2 Del Method Room Air 04/04/23 08:14 Allergies Allergy/AdvReac Type Severity Reaction Status Date / Time amoxicillin Allergy Unknown Rash Verified 04/04/23 08:11 minocycline Allergy Unknown Pain Verified 04/04/23 08:11 spironolactone Allergy Unknown Pain Verified 04/04/23 08:11 Home Medications Medication Instructions Recorded Confirmed Type amlodipine 10 mg tablet 10 mg PO DAILY 11/18/19 04/04/23 History octreotide acetate 50 mcg/mL 50 mcg subcut .[id number] 04/26/21 04/04/23 History injection solution everolimus (antineoplastic) 7.5 mg 7.5 mg PO DAILY 06/28/22 04/04/23 History tablet aspirin 81 mg tablet,delayed 81 mg PO DAILY 12/12/22 04/04/23 History release iron 150 mg-C 60 mg-B12 25 1 cap PO DAILY 12/12/22 04/04/23 History mcg-folic acid 1 [id number]-[id number]-mf.acid capsule (Ferrex) nebivolol 20 mg tablet 10 mg PO DAILY 12/12/22 04/04/23 History levothyroxine 50 mcg tablet 50 mcg PO DAILY #1 tablet 02/20/23 04/04/23 Rx (Synthroid) Fish Oil 2 tablet PO DAILY 03/12/23 04/04/23 History Super B Complex 1 tablet PO DAILY 03/12/23 04/04/23 History garlic 1 tablet PO DAILY 03/12/23 04/04/23 History Patient hx anesthesia problems: none Family hx anesthesia problems: none Results Review: All pre-operative results and documents have been reviewed as part of the pre-operative evaluation. [facility] Past Medical History Medical History Coronary artery disease (CAD) excluded COVID-19 Hip pain Hypertension Hypertension Mitral valve regurgitation Neuroendocrine cancer Neuroendocrine cancer Disorder Post-menopausal Post-menopausal Surgical History Surgical History Hx of LASIK Hx of LASIK Family History Family History Grandparent Family history of Alzheimer's disease, Onset Age: 86 Sibling Family history of malignant neoplasm of thyroid Father Heart failure Mother Heart failure Endocrine disorder Grandparent Alzheimer disease Kidney failure Sibling Thyroid cancer Cancer Other Family history of arthritis Family history of kidney disease Family history of mental disorder Family history of thyroid disease Hypertension Social History Social History Social History: Caffeine-1 cup daily Smoking packs per day: 1 Smoking cigarettes per day: 20.0 Years smoked: 33 Smoking pack-years: 33.00 Smoking status: Former smoker Tobacco type: cigarettes Smoking end date: 03/26/04 Alcohol intake: current Drinks per week: 5 Alcohol use details: rarely Substance use: never Substance use type: does not use Lack of Transportation: No Lack of Food: Never True Current Housing: I Have Housing Concerned About Future Housing: No Difficulty Paying Gas/Electric Bills: No Difficulty Paying for Meds: No Currently Unemployed: No Education: Bachelor's Degree Difficulty w/ Childcare or Family Care: No Living arrangements: with family Spiritual care concerns: No Anes - Eval Final PreProcedure Day of Procedure 04/04/23 08:51 Patient weight: normal Heart: regular rate and rhythm Lungs: clear to auscultation Airway: Mallampati scale class II Neurological: alert and oriented Last oral intake: >/= 8 hours ASA classification: III Emergent: no Anesthetic plan: pr
[2023-04-04] MEDS: SIMETHICONE ORAL SUSPENSION 20 MG/0.3 ML 30 ML BOTTLE 0.6 ML IRRIGATION (09:44)
[2023-04-04 09:53] VITALS: BP 84/35; PULSE 52; RESP 16; O2SAT 98
[2023-04-04 10:03] VITALS: BP 87/38; PULSE 55; RESP 18; O2SAT 98
[2023-04-04 10:13] VITALS: BP 124/49; PULSE 60; RESP 22; O2SAT 100
[2023-04-04 10:23] VITALS: BP 131/46; PULSE 60; RESP 18; O2SAT 100
== END 2023-04-04 10:30 | disposition home or self-care (01) ==
PROVIDERS: PCP Internal Medicine; Visit Provider Internal Medicine Gastroenterology
PROC: 0DJD8ZZ Inspection of Lower Intestinal Tract, Via Natural or Artificial Opening Endoscopic (ICD-10-PCS; CPT 45378; principal; 2023-04-04 09:30)
DX: D50.9 Iron deficiency anemia, unspecified (principal); K64.8 Other hemorrhoids; I25.10 Atherosclerotic heart disease of native coronary artery without angina pectoris; I10 Essential (primary) hypertension; Z87.891 Personal history of nicotine dependence
CPT/HCPCS: 45378; J2704; J7120

== ENCOUNTER 2023-05-17 10:19 | Outpatient (CLI) | payer MEDICARE, BC, OTHER, SELFPAY ==
--- NOTE | ~2023-05-17 | XR_ITS ---
Left ankle Technique: AP, oblique, and lateral views were obtained. Clinical History: Pain Findings: No acute fracture or dislocation is seen. Osseous alignment is anatomic. Ankle mortise and other visualized joint spaces are preserved. Soft tissues are otherwise unremarkable. Impression: Unremarkable left ankle. Reviewed, dictated and finalized at location . [employer] Impression: Unremarkable left ankle.
== END 2023-05-17 10:20 | disposition home or self-care (01) ==
PROVIDERS: PCP Internal Medicine; Visit Provider Nurse Practitioner
DX: M25.572 Pain in left ankle and joints of left foot (principal)
CPT/HCPCS: 73610

== ENCOUNTER 2023-11-19 10:18 | Outpatient (CLI) | payer MEDICARE, BC, OTHER, SELFPAY ==
[2023-11-19 14:05] LABS: Basophils Percent Auto 0.6 % (0.2-1.2); Eosinophils Absolute Auto 0.1 K/mm3 (0-0.3); Eosinophils Percent Auto 1.8 % (0-4.4); Hematocrit 39.8 % (37.0-47.0); Hemoglobin 12.6 g/dL (12.0-15.0); Immature Granulocyte Absolute 0.02 K/mm3 (0.00-0.031); Immature Granulocyte Percent A 0.3 % (0-0.5); Lymphocytes Absolute Auto 1.31 K/mm3 (0.9-3.2); Mean Corpuscular HGB Conc 31.7 g/dl (32-36); Mean Corpuscular Hemoglobin 26.4 pg (26-34); Mean Corpuscular Volume 83.3 fl (80-100); Mean Platelet Volume 9.9 fl (7.4-10.4); Monocytes Absolute Auto 0.8 K/mm3 (0.1-0.6); Neutrophils Percent Auto 64.3 % (45.5-73.1); Platelet Count Result 405 k/mm3 (150-375); Red Blood Count 4.78 M/mm3 (4.2-5.4); Red Cell Distribution Width 12.8 % (11.5-14.5); White Blood Count 6.2 K/mm3 (4.5-10.0)
[2023-11-19 15:01] LABS: Alanine Aminotransferase 27 U/L (6-35); Albumin Level 4.1 g/dL (3.5-5.1); Alkaline Phosphatase 91 U/L (38-126); Anion Gap 11 mmol/L (4-12); Aspartate Amino Transferase 62 U/L (14-36); Bilirubin,Total 0.5 mg/dL (0.2-1.3); Blood Urea Nitrogen 21 mg/dL (7-17); Calcium 8.9 mg/dL (8.4-10.2); Carbon Dioxide 30 mmol/L (22-30); Chloride 92 mmol/L (98-107); Estimated Glomerular Filt Rate 50; Glucose 155 mg/dL (65-110); Potassium 3.2 mmol/L (3.4-5.0); Sodium 133 mmol/L (137-145)
[2023-11-19 15:31] LABS: Iron 49 ug/dL (37-170)
[2023-11-19 15:41] LABS: Percent Iron Saturation 18 % (20-50)
== END 2023-11-19 10:19 | disposition home or self-care (01) ==
LOC: ANHGOSHLAB 10:21
PROVIDERS: PCP Internal Medicine; Visit Provider Clinical Nurse Specialist
DX: M79.603 Pain in arm, unspecified (principal); I10 Essential (primary) hypertension; R74.8 Abnormal levels of other serum enzymes; C7A.8 Other malignant neuroendocrine tumors; E03.9 Hypothyroidism, unspecified; D64.9 Anemia, unspecified
CPT/HCPCS: 36415; 80053; 82607; 82728; 83540; 83550; 84443; 85025

== ENCOUNTER 2023-11-19 10:33 | Outpatient (CLI) | payer MEDICARE, BC, OTHER, SELFPAY ==
--- NOTE | ~2023-11-19 | XR_ITS ---
Clinical Indication: Cough PA and lateral views of the chest: Comparison: 12/12/2022 Findings: The lungs are clear, without evidence of focal consolidation or pleural effusion. Cardiome diastinal silhouette is within normal limits. Bones and soft tissues are unremarkable. Impression: Normal chest. Reviewed, dictated and finalized at location . Impression: Normal chest.
== END 2023-11-19 10:34 ==
LOC: GOSHIMG 10:34
PROVIDERS: PCP Clinical Nurse Specialist; Visit Provider Clinical Nurse Specialist
DX: R05.9 Cough, unspecified (principal); R06.02 Shortness of breath
CPT/HCPCS: 71046

== ENCOUNTER 2023-12-07 10:04 | Outpatient (CLI) | payer MEDICARE, BC, OTHER, SELFPAY ==
--- NOTE | ~2023-12-07 | MR_ITS ---
EXAMINATION: MR brain/brain stem wo/w con DATE: 12/07/2023 11:08 INDICATION: Tremor, unspecified. TECHNIQUE: Magnetic resonance imaging (MRI) of the brain and brainstem was performed without and with 10 mL MultiHance intravenous contrast. COMPARISON: None. FINDINGS: There are scattered areas of nonspecific increased T2-weighted signal intensity in the cere bral white matter, which is within normal limits for the patient's age. There is no intracranial hemo rrhage, acute infarction, or abnormal intracranial mass lesion. The ventricles are normal in size. Th e mastoid air cells are normal. There is mucosal thickening in the paranasal sinuses. The orbits are normal. IMPRESSION: 1. Normal aging brain. Reviewed, dictated and finalized at location A. IMPRESSION: 1. Normal aging brain.
== END 2023-12-07 10:05 | disposition home or self-care (01) ==
LOC: MICIMG 10:05
PROVIDERS: PCP Internal Medicine; Visit Provider Clinical Nurse Specialist
DX: R25.1 Tremor, unspecified (principal)
CPT/HCPCS: 70553; A9577

== ENCOUNTER 2024-02-07 08:26 | Outpatient (CLI) | payer MEDICARE, BC, OTHER, SELFPAY ==
[2024-02-07 09:30] LABS: Alanine Aminotransferase 32 U/L (6-35); Albumin Level 4.2 g/dL (3.5-5.1); Alkaline Phosphatase 114 U/L (38-126); Anion Gap 7 mmol/L (4-12); Aspartate Amino Transferase 56 U/L (14-36); Bilirubin,Total 0.5 mg/dL (0.2-1.3); Blood Urea Nitrogen 16 mg/dL (7-17); Calcium 9.3 mg/dL (8.4-10.2); Carbon Dioxide 32 mmol/L (22-30); Chloride 97 mmol/L (98-107); Estimated Glomerular Filt Rate 55; Glucose 125 mg/dL (65-110); Magnesium 2.1 mg/dL (1.6-2.3); Potassium 3.7 mmol/L (3.4-5.0); Sodium 136 mmol/L (137-145)
[2024-02-11 16:19] LABS: Red Blood Cell Folate 662 ng/mL RBC (>280)
== END 2024-02-07 08:27 | disposition home or self-care (01) ==
LOC: ANHLAB 08:27
PROVIDERS: PCP Internal Medicine; Visit Provider Internal Medicine
DX: E87.6 Hypokalemia (principal); E03.9 Hypothyroidism, unspecified; C7A.8 Other malignant neuroendocrine tumors; G62.9 Polyneuropathy, unspecified; I10 Essential (primary) hypertension
CPT/HCPCS: 36415; 80053; 82747; 83735; 84443

== ENCOUNTER 2024-03-10 11:17 | Outpatient (CLI) | payer MEDICARE, BC, OTHER, SELFPAY ==
[2024-03-10 20:36] LABS: Hemoglobin A1C 5.8 % (<5.7)
== END 2024-03-10 11:18 | disposition home or self-care (01) ==
LOC: ANHGOSHLAB 11:19
PROVIDERS: PCP Internal Medicine; Visit Provider Internal Medicine
DX: R73.9 Hyperglycemia, unspecified (principal)
CPT/HCPCS: 36415; 83036

== ENCOUNTER 2024-08-26 13:05 | Outpatient (CLI) | payer MEDICARE, BC, OTHER, SELFPAY ==
--- OUTSIDE RECORDS SUMMARY | 2024-08-26 13:20 | XMS_ITS | Clinical Summary ---
Author Organization [facility] [address] Address [address] [place] [address] Care Team Providers Care Drop Wire Aligner Name Role Phone Noah Mckee MD Unavailable Rick Redmond MD Unavailable [phone] Deandre Mayberry DO Primary Care Provider [phone] Noah Mckee MD Unavailable Ailin Rodríguez MD Unavailable Fantasma Poole Chi, MD Unavailable [phone] Mandy Lee DO Unavailable Allergies Active Allergy Reactions Criticality Noted Date Comments Amoxicillin Rash Medium 04/30/2017 Minocycline Other (See comments) Low 04/26/2017 When given with Spironolactone patient has severe pain and high blood pressure. Spironolactone Other (See comments) Low 06/07/2009 When given with Minocin patient has severe pain and high blood pressure. hypertension Medications vit D3-vit K-bqtucuoyr-kamk [id number] oyzl-cix-gr-mg tablet Take by mouth Active multivitamin tabletIndication s:Vitamin Deficiency Prevention Take 1 tablet by mouth Active vitamin B complex with vitamin C tabletIndication s:Vitamin Deficiency Prevention Take 0.5 tablets by mouth daily Active OCTREOTIDE ACETATE INJ Inject as directed Active rosuvastatin (CRESTOR) 40 mg tablet Take 1 tablet (40 mg total) by mouth nightly 30 tablet 11 4 Active aspirin 81 mg enteric coated tablet TAKE 1 TABLET BY MOUTH DAILY 90 tablet 3 4 Active everolimus (AFINITOR) 7.5 mg tabletIndication s: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 Do not take any tablet that is broken or crushed. 30 tablet 6 4 Active amLODIPine (NORVASC) 10 mg tablet TAKE 1 TABLET(10 MG) BY MOUTH DAILY 30 tablet 11 4 Active Additional Information Patient taking differently: 5 mgoral Daily, Reported on 07/01/2024 gabapentin (NEURONTIN) 100 mg capsule 4 Active propranoloL (INDERAL) 20 mg tablet 4 Active iron aspgly,ps-C-B12- FA-Ca-suc (Ferrex 150 Forte Plus) 150-60-25-1 fp-xi-peo-mg capsuleIndicatio ns:Iron deficiency anemia, unspecified iron deficiency anemia type Take 1 tablet by mouth daily 30 capsule 3 5 Active magnesium gluconate 200 mg tabletIndication s:hypomagnesemia Take 1 tablet (200 mg total) by mouth 2 (two) times a day Active Synthroid 50 mcg tablet Take 1 tablet (50 mcg total) by mouth daily 30 tablet 5 5 07/24/19 26 Active Hospital, Clinic, or Other Facility Administered Medication Ordered Dose Route Frequency Start Date End Date Status tc-99m sestamibi unit dose injection 8.3 millicurieIndications :Diagnostic Radiography 8.3 millicurie IV Once in imaging 12/23/2021 Acti ve aminophylline 250 mg/10 mL injection 150 mgIndications:Abnorma l echocardiogram 150 mg IV As needed 12/15/2021 Active Active Problems Problem Noted Date Diagnosed Date Mixed hyperlipidemia 04/03/2024 Assessment & Plan (04/03/2024 1:17 PM SENIOR CONTROLS ANALYST): Stable continue Crestor Bilateral carotid artery stenosis 10/05/2023 Assessment & Plan (04/03/2024 1:17 PM SENIOR CONTROLS ANALYST): Stable bilateral moderate asymptomatic ICA stenosis. Continue risk factor modification with ASA statin therapy good blood pressure control. Follow up in 1 year with repeat carotid duplex. Assessment & Plan (10/05/2023 11:26 AM CDT): Moderate 50-69% stenosis of bilateral internal carotid arteries. Discussed findings and management of carotid artery disease with the patient. Needs ongoing surveillance with a repeat carotid duplex in 6 months. Continue risk factor modification with ASA statin therapy and good blood pressure control. Primary hypertension 10/05/2023 Assessment & Plan (04/03/2024 1:17 PM SENIOR CONTROLS ANALYST): Stable continue amlodipine Assessment & Plan (10/05/2023 11:26 AM CDT): Stable continue amlodipine 10 mg. 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:Clinical stage from 04/01/2017:Stage IVB(cN1, pM1) - Signed by Laquita Serrano MD on 10/14/2019 Abnormal EKG 08/09/2010 Pneumonitis Resolved Problems Problem Noted Date Diagnosed Date Resolved Date Decreased renal function 03/07/2023 Encounters Date Type Department Care Team Description 08/26/2024 Orders Only [facility] Oncology [address] [place] [id number] Noah Mckee MD 08/11/2024 9:15 AM CDT Infusion [facility] [address] [place] [address] Malignant neuroendocrine neoplasm (HCC) (Primary Dx) 08/11/2024 Orders Only [facility] Oncology [address] [place] [address] [address] [place] [address] Noah Mckee MD 07/14/2024 9:15 AM CDT Infusion [facility] [address] [place] [address] Malignant neuroendocrine neoplasm (HCC) (Primary Dx) 07/10/2024 Results Follow-Up [facility] Endocrinology Metabolism and Lipid [address] [facility] 2[address] [place] [address] Mandy Lee DO Albumin Creatinine Ratio, Urine, Hemoglobin A1c, Vitamin D 25 hydroxy, Additional followed-up results: 2 07/05/2024 Results Follow-Up [facility] Infusion Therapy [address] [facility] [address] [place] [address] Mandy Lee DO XR Spine Cervical 2 or 3 Views 07/01/2024 10:38 AM CDT - 07/01/2024 11:59 PM CDT Hospital [facility] Radiology at [facility] [address] [place] [address] Decreased muscle strength Discharge Disposition: Discharge to home or self care 07/01/2024 10:25 AM CDT Lab [facility] [address] [facility] [address] [place] [address] Prediabetes; Vitamin D deficiency, unspecified; Other hyperlipidemia; Hypothyroidism, unspecified type 07/01/2024 9:30 AM CDT Office Visit [facility] Endocrinology Metabolism and Lipid [address] [facility] [address] [place] [address] Mandy Lee DO Scalp lesion (Primary Dx); Hypothyroidism, unspecified type; Other hyperlipidemia; Vitamin D deficiency, unspecified; Prediabetes; Decreased muscle strength; Carcinoid (except of appendix) (HCC); Primary hypertension 06/29/2024 Orders Only [facility] Oncology [address] [facility] [address] [place] [address] Noah Mckee MD 06/16/2024 9:15 AM CDT Infusion [facility] [address] [place] [address] Malignant neuroendocrine neoplasm (HCC) (Primary Dx) 06/10/2024 Orders Only [facility] Oncology [address] [facility] [address] [place] [address] Noah Mckee MD from Last 3 Months Immunizations Immunization Administration Dates Next Due Influenza, Quadrivalent, Tia l Culture-based MDCK, Preservative Free, Antibiotic Free, Intramuscular 01/12/2020 Influenza, Quadrivalent, Spl it, Preservative Free, Intramuscular 01/20/2019 ZOSTER Recombinant 07/12/2018,03/20/2018 Surgical History Surgery Date Site/Laterality Comments EYE SURGERY lasik SKIN BIOPSY LASIK 2009 Medical History Medical History Date Comments Hypertension Hypertension Peripheral vascular disease Alla pheral vascular disease Arthritis osteroathritis 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 Anemia 02/18/2020 Cancer (HCC) 04/11/2017 Covid-19 Tremors of nervous system 01/31/2024 Restless leg syndrome 01/31/2024 Family History Medical History Relation Name Comments Heart attack Brother Prasanth Anxiety disorder Daughter Hearing loss Father Jimmie Heart attack Father Jimmie Heart disease Father Jimmie Hypertension Father Jimmie Arthritis Maternal Grandfather Binh Galaviz Alzheimer's disease Maternal Grandmother Shana Galaviz Cancer Mother Tameka Angelas Heart failure Mother Tameka Angelas Hypertension Mother Tameka Salvmireyas neuroendocrine tumor Mother Tameka Angelas age 9 1 Diabetes Mother's Sister Sonia Cancer Sister 1 Luisa Salvhus Lung cancer Sister 1 Luisa Salvhus Arthritis Sister 2 Roya Garcia Cancer Sister 2 Roya Garcia Hypertension Sister 2 Roya Garcia Thyroid cancer Sister 2 Roya Garcia Arthritis Sister 3 Gary Hearing loss Sister 3 Gary Hypertension Sister 3 Gary lyme disease Sister 3 Gary Arthritis Sister 4 Chelsie Hypertension Sister 4 Chelsie Melanoma Son 1 Relation Name Status Comments Brother Prasanth Daughter Alive Father Jimmie Maternal Grandfather Binh Galaviz Maternal Grandmother Shana Galaviz Mother Tameka Bellamy Mother's Sister Sonia Sister 1 Luisa Salvhus Sister 2 Roya Garcia Alive Sister 3 Gary Alive Sister 4 Chelsie Alive Son 1 Alive Son 2 Alive Social History Tobacco Use Types Packs/Day Years Used Date Smoking Tobacco: Former Cigarettes 1 33 0 03/26/1971 - 03/26/2004 Passive Smoke Exposure: Past Smokeless Tobacco: Never Alcohol Use Standard Drinks/Week Comments Yes 0 (1 standard drink = 0.6 oz pur e alcohol) AUDIT-C Answer Date Recorded Q1: How often do you have a drink containing alcohol? 4 or more times a week 12/28/2020 Q2: How many drinks containi ng alcohol do you have on a typical day when you are drinking? 1 or 2 Frequency of Binge Drinking Not on file 07/2020 Comments No Sex and Gender Information Value Date Recorded Sex Assigned at Not on file Legal Sex Female 3:08 AM SENIOR CONTROLS ANALYST Gender Identity Not on file Sexual Orientation Not on file Obstetrics History Last Filed Vital Signs Vital Sign Reading Time Taken Comments Blood Pressure 123/63 08/11/2024 9:39 AM CDT Pulse 74 08/11/2024 9:39 AM CDT Temperature 36.7 C (98.1 F) 08/11/2024 9:39 AM CDT Respiratory Rate 16 08/11/2024 9:39 AM CDT Oxygen Saturation 100% 08/11/2024 9:39 AM CDT Inhaled Oxygen Concentration - - Weight 55.3 kg (122 lb) 08/11/2024 9:39 AM CDT Height 167.6 cm (5' 6) 07/01/2024 9:27 AM CDT Body Mass Index 19.69 07/01/2024 9:27 AM CDT Plan of Treatment Health Maintenance Due Date Last Done Comments Breast Cancer Screening-Mammogram 1955 Colon Cancer Screening-Colonoscopy 1955 Depression Screening 1955 Osteoporosis Screening-Bone Density Scan 1955 DTaP/Tdap/Td Vaccine (1 - Tdap) 05/28/1967 Hepatitis B Screening 1974 Pneumococcal vaccine 65+ (1 of 2 - PCV) 05/28/1975 Well Visit 65+ 2021 Fall Risk Assessment 08/12/2024 08/13/2023, 08/07/2022, 09/08/2020 Influenza Vaccine (Season Ended) 2024 01/12/20 20, 01/20/2019 Zoster Vaccine Completed 07/12/2018, 03/20/2018 Hepatitis C Screening Completed 02/10/2019 Colon Cancer Screening-FIT Discontinued 06/15/2022 Procedures Procedure Name Priority Date/Time Associated Diagnosis Comments XR SPINE CERVICAL 2 OR 3 VIEWS Schedule Routine, Read Routine (OP Routine) 07/01/2024 10:52 AM CDT Decreased muscle strength TSH Routine 07/01/2024 10:33 AM CDT Hypothyroidism, unspecified type LIPID PANEL Routine 07/01/2024 10:33 AM CDT Other hyperlipidemia VITAMIN D 25 HYDROXY Routine 07/01/2024 10:33 AM CDT Vitamin D deficiency, unspecified HEMOGLOBIN A1C Routine 07/01/2024 10:33 AM CDT Prediabetes ALBUMIN CREATININE RATIO, URINE Routine 07/01/2024 10:33 AM CDT Prediabetes FIT OCCULT BLOOD, FECAL Routine 06/15/2022 9:30 AM CDT HEPATITIS PANEL, ACUTE Routine 02/10/2019 9:30 AM SENIOR CONTROLS ANALYST Exposure to hepatitis from Last 3 Months or Most Recently Relevant to Health Maintenance Results * XR Spine Cervical 2 or 3 Views (07/01/2024 10:52 AM CDT) Anatomical Region Laterality Modality Spine N/A Computed Radiogr aphy 07/01/2024 11:1 2 AM CDT Impressions 07/01/2024 11:12 AM CDT 1. Multilevel degenerative disc disease most pronounced and moderate at C5-C6 with mild anterolisthesis of C4 on C5. Electronically signed by: Francisco J Sanchez M.D. Narrative 07/01/2024 11:12 AM CDT EXAMINATION: XR SPINE CERVICAL 2 OR 3 VIEWS HISTORY: decrease muscle strength. History of metastatic neuroendocrine carcinoma. FINDINGS: 2 view examination of the cervical spine is read without comparison. There is mild anterolisthesis of C4 on C5. No prevertebral soft tissue swelling. Vertebral body heights are maintained. There is multilevel degenerative disc disease most pronounced and moderate at C5-C6. There is multilevel facet osteoarthritis and uncovertebral hypertrophy. Atherosclerotic vascular calcifications noted. Procedure Note Francisco J Lugo MD - 07/01/2024 EXAMINATION: XR SPINE CERVICAL 2 OR 3 VIEWS HISTORY: decrease muscle strength. History of metastatic neuroendocrine carcinoma. FINDINGS: 2 view examination of the cervical spine is read without comparison. There is mild anterolisthesis of C4 on C5. No prevertebral soft tissue swelling. Vertebral body heights are maintained. There is multilevel degenerative disc disease most pronounced and moderate at C5-C6. There is multilevel facet osteoarthritis and uncovertebral hypertrophy. Atherosclerotic vascular calcifications noted. IMPRESSION: 1. Multilevel degenerative disc disease most pronounced and moderate at C5-C6 with mild anterolisthesis of C4 on C5. Electronically signed by: Francisco J Sanchez M.D. us Mandy Lee DO IMG XR PROCEDURES Final Result * (ABNORMAL) Albumin Creatinine Ratio, Urine (07/01/2024 10:33 AM CDT) Albumin Ur 76.8 mg/L Comment: Interpretive Data No reference range established. Current interpretive data was last revised 2018. Creatinine Ur 162.5 mg/dL [facility] Comment: Interpretive Data No reference range established. Current interpretive data was last revised 2018. Albumin Creatinine Ratio, Ur 47(H) 1 - 29 mg/g [facility] Urine 07/01/2024 10:3 3 AM CDT 07/01/2024 1:40 PM CDT Mandy Lee DO LAB URINE ORDERABLES Fi nal Result Performing Organization Address [facility] Co de Phone Number [facility] Department [place] [address] * Vitamin D 25 hydroxy (07/01/2024 10:33 AM CDT) Vitamin D 25-OH 60 30 - 80 ng/mL Blood 07/01/2024 10:3 3 AM CDT 07/01/2024 1:40 PM CDT us Mandy Lee DO LAB BLOOD ORDERABLES Fi nal Result Performing Organization Address City/[facility] Co de Phone Number [facility] [place] [address] * TSH (07/01/2024 10:33 AM CDT) Pathologist [facility] Thyroid Stimulating Hormone 1.94 0.30 - 4.20 mcIUnit/mL Blood 07/01/2024 10:3 3 AM CDT 07/01/2024 1:40 PM CDT [facility] LAB BLOOD ORDERABLES Fi nal Result Performing Organization Address [facility] [place] [address] * (ABNORMAL) Hemoglobin A1c (07/01/2024 10:33 AM CDT) [facility] Hgb A1C 6.1(H) 4.0 - 5.6 % Estimated Average Glucose 128 mg/dL [facility] Comment: The ADA recommends reporting an estimated Average Glucose (eAG) with all Hemoglobin A1c results using the equation derived from a study of 507 normal and diabetic adults. Minority populations were underrepresented and children were not included. (Diabetes Care 2020; 43(S1): S66-S76). The eAG is not equivalent to a fasting glucose. Blood 07/01/2024 10:3 3 AM CDT 07/01/2024 1:41 PM CDT Mandy Suzette Jesus DO LAB BLOOD ORDERABLES Fi nal Result Performing Organization Address [facility] Co de Phone Number [facility] [place] [address] * Lipid panel (07/01/2024 10:33 AM CDT) [facility] Cholesterol 167 30 - 199 mg/dL Comment: Interpretive Data Ages < or = 19 years Acceptable: <170 mg/dL Borderline high: 170-199 mg/dL High: >or= 200 mg/dL Ages > or = 20 years Desirable: <200 mg/dL Borderline high: 200-239 mg/dL High: >or= 240 mg/dL Literature References: 1. Expert Panel on Integrated Guidelines for Cardiovascular Health and Risk Reduction in Children and Adolescents. Pediatrics 2011;128:S213 2. NCEP Expert Panel. Circulation 2004;110:227 Current Interpretive Data was last revised on 2017. Triglycerides 85 <=149 mg/dL [facility] Comment: Interpretive Data Ages < or = 9 years Acceptable: <75 mg/dL Borderline high: 75-99 mg/dL High: >or= 100 mg/dL Ages 10 to 20 years Acceptable: <90 mg/dL Borderline high: 90-129 mg/dL High: >or= 130 mg/dL Ages > or = 20 years Desirable: <150 mg/dL Borderline high: 150-199 mg/dL High: 200-499 mg/dL Very high: >or= 499 mg/dL Literature References: 1. Expert Panel on Integrated Guidelines for Cardiovascular Health and Risk Reduction in Children and Adolescents. Pediatrics 2011;128:S213 2. NCEP Expert Panel. Circulation 2004;110:227 Current Interpretive Data was last revised on 2017. HDL 81 >=40 mg/dL [facility] Comment: Interpretive Data Ages < or = 19 years Acceptable: >45 mg/dL Borderline low: 40-45 mg/dL Low: <40 mg/dL Ages > or = 20 years Desirable: >or= 60 mg/dL Low: <40 mg/dL Literature References: 1. Expert Panel on Integrated Guidelines for Cardiovascular Health and Risk Reduction in Children and Adolescents. Pediatrics 2011;128:S213 2. NCEP Expert Panel. Circulation 2004;110:227 Current Interpretive Data was last revised on 2017. LDL, calculated 70 <=129 mg/dL [facility] Comment: Interpretive Data Ages < or = 19 years Acceptable: <110 mg/dL Borderline high: 110-129 mg/dL High: >or= 130 mg/dL Ages > or = 20 years Optimal: <100 mg/dL Near optimal: 100-129 mg/dL Borderline high: 130-159 mg/dL High: >160 mg/dL Calculated using the Fontaine LDL-C estimating equation. This equation was implemented on 2023. Prior to this date LDL-C was estimated using the Friedewald equation. Literature References: 1. Expert Panel on Integrated Guidelines for Cardiovascular Health and Risk Reduction in Children and Adolescents. Pediatrics 2011;128:S213 2. NCEP Expert Panel. Circulation 2004;110:227 3. Zhen Sky et al. DIONISIO Cardiol. 2019July 24;5(5):540-548. doi: 10.1001/jamacardio.2020.0013 Current Interpretive Data was last revised on 2023. Non-HDL Cholesterol 86 mg/dL [facility] Comment: Interpretive Data Ages < or = 19 years Acceptable: <120 mg/dL Borderline high: 120-144 mg/dL High: >145 mg/dL Ages > or = 20 years When triglycerides are >200 mg/dL, Non-HDL cholesterol is a secondary target of therapy with treatment goals that are 30 mg/dL greater than the LDL cholesterol target. Literature References: 1. Expert Panel on Integrated Guidelines for Cardiovascular Health and Risk Reduction in Children and Adolescents. Pediatrics 2011;128:S213 2. NCEP Expert Panel. Circulation 2004;110:227 Current Interpretive Data was last revised on 2017. Chol/HDL ratio 2 [facility] Blood 07/01/2024 10:3 3 AM CDT 07/01/2024 1:40 PM CDT us Mandy Lee DO LAB BLOOD ORDERABLES Fi nal Result [facility] Department of Laboratories [place], [place] [id number] * FIT occult blood, fecal (06/15/2022 9:30 AM CDT) [facility] Occult blood, fecal Negative Negative [facility] - 01 06/15/2022 9:30 AM CDT 06/15/2022 Comment:ST Monet [facility] - 06/16/2022 4:11 PM CDT Performed at: - [address] [id number] School Bus Mechanic: Abiel Cruz PhD, Phone: [phone] us Noah Mckee MD LAB BODY FLUIDS AND STOOL S ORDERABLES Final Result [facility] - 01 * Hepatitis panel, acute (02/10/2019 9:30 AM SENIOR CONTROLS ANALYST) Hep A IgM Negative Negative [facility] Hep B core IgM Negative Negative [facility] Hep C Ab Negative Negative [facility] HepBsAg Nonreactive Nonreactive [facility] Blood specimen (specimen) 02/10/2019 9:30 AM SENIOR CONTROLS ANALYST 02/10/2019 10:33 AM SENIOR CONTROLS ANALYST us Noah Mckee MD LAB MICROBIOLOGY - GENERA L ORDERABLES Final Result [facility] [address] Department of Laboratories [place] [phone] from Last 3 Months or Most Recently Relevant to Health Maintenance Insurance [facility] MEDICARE FOR LIFE MEDICARE FOR LIFE BCBS FEDERAL [facility] FEDERAL Member Subscriber Plan / Payer (Ef fective 2015-Present) Name:Evelin Mireles Relation to Subscriber:Spouse Name:Emmanuel Mireles Date of :1955 (Home) Address: [address] [place] [id number] Payer ID:[id number] (NAIC) Group ID:[id number] Type:BC ALLIANCE Address: [facility] [id number] [place] [id number] Care Teams Drop Wire Aligner Relationship Specialty Start Date End Date Deandre Mayberry DO [address] [place] [address] PCP - General 09/18/18 Noah Mkcee MD [address] [place], [place] [id number] Medical Oncologist/Hematologis t Medical Oncology 09/19/17 Rick Redmond MD [address] [place] [address] Referring Physician Hematology 09/19/17 Noah Mckee MD [address] [place] [address] Medical Oncologist/Hematologis t Medical Oncology 02/10/19 Ailin Rodríguez MD [address] [place] [address] Consulting Physician Radiation Oncology 10/14/19 Fantasma Poole Chi, MD [address] [place] [address] Pulmonary Disease 10/27/20 Mandy Lee DO [address] [facility] [address] [place] [address] Consulting Physician Endocrinology Diabetes & Metabolism 01/07/21
--- OUTSIDE RECORDS SUMMARY | 2024-08-26 13:20 | XMS_ITS | Clinical Summary ---
Author Organization [facility] Address [address] [place] [address] Care Team Providers Care Sieve Maker Name Role Phone Eric Vu MD Primary Care Provide r Allergies Active Allergy Reactions Criticality Noted Date Comments Minocycline Other (See Comments) 04/26/2017 When given with Spironolactone patient has severe pain and high blood pressure. Spironolactone Other (See Comments) 04/26/2017 When given with Minocin patient has severe pain and high blood pressure. Medications everolimus, antineoplastic, (AFINITOR) 10 mg Tablet Take 1 Tablet (10 mg) by mouth daily with breakfast. 30 Tablet 3 04/19/2017 Active nebivolol (BYSTOLIC) 10 mg Tablet Take 10 mg by mouth daily. Active clonazePAM (KlonoPIN) 1 mg tablet Take 1 mg by mouth 2 times daily. Active HYDROcodone-acet aminophen (NORCO) 5-325 mg tablet Take 1 Tablet by mouth every 6 hours as needed for Pain, Moderate. Active cyclobenzaprine (FLEXERIL) 10 mg tablet Take 1 Tablet (10 mg) by mouth 3 times daily as needed for Pain or Spasm. 90 Tablet 3 04/20/2017 Active ondansetron (ZOFRAN) 4 mg Tablet Take 1 Tablet (4 mg) by mouth every 8 hours as needed for Nausea/Emes is. 30 Tablet 3 04/20/2017 Active Active Problems Problem Noted Date Diagnosed Date Neuroendocrine carcinoma metastatic to liver Family History Medical History Relation Name Comments Other Brother Heart Disease Father Melanoma Mother Cancer Sister 1 No Known Problems Sister 2 No Known Problems Sister 3 Cancer Sister 4 Relation Name Status Comments Brother Alive Father Mother Alive Sister 1 Sister 2 Alive Sister 3 Alive Sister 4 Alive Social History Tobacco Use Types Packs/Day Years Used Date Smoking Tobacco: Former Cigarettes 1 33 0 04/20/1971 - 04/20/2004 Alcohol Use Standard Drinks/Week Comments Yes 0 (1 standard drink = 0.6 oz pur e alcohol) quit 04/15/17 Comments No Sex and Gender Information Value Date Recorded Sex Assigned at Not on file Legal Sex Female 11:34 AM COMMUNITY HEALTH PROGRAM REPRESENTATIVE Gender Identity Not on file Sexual Orientation Not on file Last Filed Vital Signs Vital Sign Reading Time Taken Comments Blood Pressure 129/83 04/26/2017 2:05 PM COMMUNITY HEALTH PROGRAM REPRESENTATIVE Pulse 81 04/26/2017 2:05 PM COMMUNITY HEALTH PROGRAM REPRESENTATIVE Temperature 36.4 C (97.6 F) 04/26/2017 2:05 PM COMMUNITY HEALTH PROGRAM REPRESENTATIVE Respiratory Rate 16 04/20/2017 11:24 AM COMMUNITY HEALTH PROGRAM REPRESENTATIVE Oxygen Saturation - - Inhaled Oxygen Concentration - - Weight 59.1 kg (130 lb 3.2 oz) 04/26/2017 2:05 P M COMMUNITY HEALTH PROGRAM REPRESENTATIVE Height 170.2 cm (5' 7) 04/26/2017 2:05 PM COMMUNITY HEALTH PROGRAM REPRESENTATIVE Body Mass Index 20.39 04/26/2017 2:05 PM COMMUNITY HEALTH PROGRAM REPRESENTATIVE Plan of Treatment Health Maintenance Due Date Last Done Comments DTAP/TDAP/TD VACCINES (1 - Tdap) 05/28/1975 PNEUMOCOCCAL VACCINE 50+ YEA RS (1 of 2 - PCV) 05/28/1975 BREAST CANCER SCREENING 1996 COLORECTAL SCREENING 2001 Colorectal Cancer Screening 2001 FIT-DNA Q 3 years 2001 FIT/FOBT Q 1 year 2001 Flex Sig/CT Colonography Q 5 years 2001 RSV VACCINE (60+ or ) (1 - Risk 60-74 years 1-dose series) 2016 OSTEOPOROSIS SCREENING 2021 INFLUENZA VACCINE (#1) 2023 01/12/2020, 2018 ZOSTER VACCINE Completed 07/12/2018, 03/20/2018 Insurance [facility] Care Teams Sieve Maker Relationship Specialty Start Date End Date Eric Vu MD PCP - General Internal Medicine 04/20/17
--- OUTSIDE RECORDS SUMMARY | 2024-08-26 13:20 | XMS_ITS | Encounter Summary ---
Author Organization [facility] Healthcare Address [address] [place] [address] Care Team Providers Care General Car Yard Supervisor Name Role Phone Noah Mckee MD Unavailable Rick Redmond MD Unavailable [phone] Deandre Mayberry DO Primary Care Provider [phone] Noah Mckee MD Unavailable Ailin Rodríguez MD Unavailable Fantasma Poole Chi, MD Unavailable Mandy Lee DO Unavailable Encounter Details Date Type Department Care Team (Late st Contact Info) Description 09/15/2019 Telephone [facility] [address] [place] [address] Kortney Mayes, RT Social History Tobacco Use Types Packs/Day Years Used Date Smoking Tobacco: Former Cigarettes Smokeless Tobacco: Never Alcohol Use Standard Drinks/Week Comments Yes 0 (1 standard drink = 0.6 oz pur e alcohol) Comments No Sex and Gender Information Value Date Recorded Sex Assigned at Not on file Legal Sex Female 3:08 AM PHYSICAL EDUCATION AIDE Gender Identity Not on file Sexual Orientation Not on file documented as of this encounter Plan of Treatment Not on file documented as of this encounter Visit Diagnoses Not on filedocumented in this encounter Additional Health Concerns Infection Onset Date Last Indicated Resolved Time COVID: Suspected 09/08/2020 09/08/2020 09/08/2020 8:44 PM CDT documented as of this encounter Care Teams General Car Yard Supervisor Relationship Specialty Start Date End Date Deandre Mayberry DO [address] [place] [address] PCP - General 09/18/18 Noah Mckee MD [address] [facility] [address] [place] [address] Medical Oncologist/Hematologis t Medical Oncology 09/19/17 Rick Redmond MD [address] [place] [phone] Referring Physician Hematology 09/19/17 Noah Mckee MD [address] [place] [address] Medical Oncologist/Hematologis t Medical Oncology 02/10/19 Ailin Rodríguez MD [address] [facility] [address] [place] [address] Consulting Physician Radiation Oncology 10/14/19 Fantasma Poole Chi, MD [address] [facility] [address] [place] [address] Pulmonary Disease 10/27/20 Mandy Lee DO [address] [facility] [address] [place] [address] Consulting Physician Endocrinology Diabetes & Metabolism 01/07/21 documented as of this encounter
--- OUTSIDE RECORDS SUMMARY | 2024-08-26 13:20 | XMS_ITS | Encounter Summary ---
Author Organization [facility] Address [address] [place] [address] Phone Care Team Providers Care Aadc Plans Staff Officer Name Role Phone Noah Mckee MD Unavailable Rick Redmond MD Unavailable [phone] Deandre Mayberry DO Primary Care Provider [phone] Noah Mckee MD Unavailable Ailin Rodríguez MD Unavailable Fantasma Poole Chi, MD Unavailable Mandy Lee DO Unavailable [phone] Encounter Details Date Type Department Care Team (Late st Contact Info) Description 08/26/2024 Orders Only [facility] Oncology [address] [facility] [address] [place] [address] Noah Mckee MD [address] [facility] [address] [place] [address] Social History Tobacco Use Types Packs/Day Years [...] on file Legal Sex Female 3:08 AM BACK END ARCHITECT Gender Identity Not on file Sexual Orientation Not on file documented as of this encounter Plan of Treatment Not on file documented as of this encounter Visit Diagnoses Not on filedocumented in this encounter Care Teams Aadc Plans Staff Officer Relationship Specialty Start Date End Date Deandre Mayberry DO [address] [place] [address] PCP - General 09/18/18 Noah Mckee MD [address] [place] [address] Medical Oncologist/Hematologis t Medical Oncology 09/19/17 Rick Redmond MD [address] [place] [address] Referring Physician Hematology 09/19/17 Noah Mckee MD [address] [place] [address] Medical Oncologist/Hematologis t Medical Oncology 02/10/19 Ailin Rodríguez MD [address] [place] [address] Consulting Physician Radiation Oncology 10/14/19 Fantasma Poole Chi, MD [address] [place] [address] Pulmonary Disease 10/27/20 Mandy Lee DO [address] [facility] [address] [place] [address] Consulting Physician Endocrinology Diabetes & Metabolism 01/07/21 documented as of this encounter
--- OUTSIDE RECORDS SUMMARY | 2024-08-26 13:20 | XMS_ITS | Encounter Summary ---
Author Organization [facility] Address [address] [facility] [place] [address] Care Team Providers Care Biometric Technician Name Role Phone Eric Vu MD Primary Care Provider [phone] Encounter Details Date Type Department Care Team (Late st Contact Info) Description 03/09/2021 Lab Requisition [facility] DermPath Lab [address] [place] [address] Kendall Hinton MD [address] [place] [address] Social History Tobacco Use Types Packs/Day Years Used Date Smoking Tobacco: Never Assessed Comments Unknown Sex and Gender Information Value Date Recorded Sex Assigned at Not on file Legal Sex Female 5:50 PM DIRECTOR REACTOR PROJECTS Gender Identity Not on file Sexual Orientation Not on file documented as of this encounter Plan of Treatment Not on file documented as of this encounter Procedures Procedure Name Priority Date/Time Associated Diagnosis Comments DERMATOPATHOLOGY Routine 03/08/2021 12:0 0 AM DIRECTOR REACTOR PROJECTS documented in this encounter Results * DERMATOPATHOLOGY (03/08/2021 12:00 AM DIRECTOR REACTOR PROJECTS) Case Report Dermatopathology Report Case: [id number] Authorizing Provider: Kendall Hinton MD Collected: 03/08/2021 12:00 AM Ordering Location: [facility] Derm[facility] Lab Received: 03/09/2021 12:43 PM Pathologist: Mandy Noguera MD Specimen: Skin, scalp vertex 4:27 PM DIRECTOR REACTOR PROJECTS DERMATOPATHOLOGY LABORATORY Final Diagnosis Specimen A. SKIN, scalp vertex: FIBROSING GRANULATION TISSUE WITH OVERLYING IMPETIGINIZED AND INFLAMED SERUM SCALE CRUST (L90.5) DERMAL SCAR (see microscopic description and comment) 1 4:27 PM [facility] DERMATOPATHOLOGY LABORATORY at [address]27 DIRECTOR REACTOR PROJECTS Clinical History R/o SCC,BCC,erosive pustulosis vs HAK vs side effect everlimus 1 4:27 PM [facility] DERMATOPATHOLOGY LABORATORY Gross Description Specimen A: Received is one formalin filled container labeled with the patient's name and designated scalp vertex. The specimen consists of a shave biopsy measuring 8x6x2 mm. Jar 0. 1 4:27 PM [facility] DERMATOPATHOLOGY LABORATORY Microscopic Description Specimen A. SKIN, scalp vertex: The dermis reveals vascular proliferation, fibroblasts, and an edematous stroma. The overlying inflamed serum scale crust contains collections of bacteria highlighted by Gram stain as well as rare fungal yeast forms that are highlighted by a GMS stain. There are an increased number of fibroblasts and collagen bundles oriented parallel to the skin surface, dilated blood vessels some of which are oriented perpendicular to the skin surface. COMMENT: These histologic findings could be compatible with erosive pustular dermatosis in the correct clinical setting. 1 4:27 PM [facility] DERMATOPATHOLOGY LABORATORY Disclaimer An external and internal positive and negative controls are appropriate for the histochemical, immunohistochemical and immunofluorescence stain(s) in this case (if any), except where stated explicitly. The performance characteristics of the stain(s) cited in this report were developed and its performance characteristic determined by the Dermatopathology Laboratory at [facility], directed by Dr. Mary Whitlock. These tests need not be, and therefore are not, approved by the [place] Food and Drug Administration. The tests are used for clinical purposes. Billing Codes Specimen Charges Stain Charges 17761 1 52775 86921 1 1 1 4:27 PM [facility] DERMATOPATHOLOGY LABORATORY Embedded Images 1 4:27 PM [facility] DERMATOPATHOLOGY LABORATORY Pathology/Cytolog y TISSUE SPECIMEN FROM SKIN / Unknown 03/08/2021 03/09/2021 12:43 PM DIRECTOR REACTOR PROJECTS Kendall Hinton MD LAB - PATHOLOGY/CYTOLOGY ORD ERABLES Final Result DERMATOPATHOLOGY LABORATORY [facility] - Department of Dermatology [address] [phone] documented in this encounter Visit Diagnoses Not on filedocumented in this encounter Care Teams Biometric Technician Relationship Specialty Start Date End Date Eric Vu MD [address] [place] [address] PCP - General 04/18/17 documented as of this encounter
--- OUTSIDE RECORDS SUMMARY | 2024-08-26 13:20 | XMS_ITS | Encounter Summary ---
Author Organization [facility] Healthcare Address [address] [place] [address] Care Team Providers Care Office Machine Servicer Apprentice Name Role Phone Eric Vu MD Primary Care Provider + Noah Mckee MD Unavailable Rick Redmond MD Unavailable [phone] Deandre Mayberry DO Primary Care Provider [phone] Noah Mckee MD Unavailable Ailin Rodríguez MD Unavailable Fantasma Poole Chi, MD Unavailable [phone] Mandy Lee DO Unavailable Encounter Details Date Type Department Care Team (Late st Contact Info) Description 05/01/2017 [facility] [address] [place] [address] Noah Mckee MD [address] [facility] [address] [place] [address] Social History Tobacco Use Types Packs/Day Years Used Date Smoking Tobacco: Former Smokeless Tobacco: Never Alcohol Use Standard Drinks/Week Comments Yes 0 (1 standard drink = 0.6 oz pur e alcohol) Comments Unknown Sex and Gender Information Value Date Recorded Sex Assigned at Not on file Legal Sex Female 3:08 AM SENIOR LITIGATION PARALEGAL Gender Identity Not on file Sexual Orientation Not on file documented as of this encounter Plan of Treatment Not on file documented as of this encounter Visit Diagnoses Not on filedocumented in this encounter Additional Health Concerns Infection Onset Date Last Indicated Resolved Time COVID: Suspected 09/08/2020 09/08/2020 09/08/2020 8:44 PM CDT documented as of this encounter Care Teams Office Machine Servicer Apprentice Relationship Specialty Start Date End Date Eric Vu MD PCP - General 04/11/17 09/17/18 Deandre Mayberry DO [address] [place] [address] PCP - General 09/18/18 Noah Mckee MD [address] [place], [place] [id number] Medical Oncologist/Hematologis t Medical Oncology 09/19/17 Rick Redmond MD [address] [place] [address] Referring Physician Hematology 09/19/17 Noah Mckee MD [address] [place] [address] Medical Oncologist/Hematologis t Medical Oncology 02/10/19 Ailin Rodríguez MD [address] [place] [address] Consulting Physician Radiation Oncology 10/14/19 Fantasma Poole Chi, MD [address] [place] [address] Pulmonary Disease 10/27/20 Mandy Lee DO [address] [facility] [address] [place] [address] Consulting Physician Endocrinology Diabetes & Metabolism 01/07/21 documented as of this encounter
--- OUTSIDE RECORDS SUMMARY | 2024-08-26 13:20 | XMS_ITS | Encounter Summary ---
Author Organization [facility] Address [address] [place] [address] Phone Care Team Providers Care Chocolate Temperer Name Role Phone Noah Mckee MD Unavailable Rick Redmond MD Unavailable [phone] Deandre Mayberry DO Primary Care Provider [phone] Noah Mckee MD Unavailable Ailin Rodríguez MD Unavailable Fantasma Poole Chi, MD Unavailable [phone] Mandy Lee DO Unavailable Encounter Details Date Type Department Care Team (Latest Contact Info) Description 07/10/2024 Results Follow-Up [facility] Endocrinology Metabolism and Lipid [address] [place] [address] Mandy Lee DO [address] [facility] [address] [place] [address] Albumin Creatinine Ratio, Urine, Hemoglobin A1c, Vitamin D 25 hydroxy, Additional followed-up results: 2 Social History Tobacco Use Types Packs/Day Years [...] on file Legal Sex Female 3:08 AM SUPERINTENDENT METERS Gender Identity Not on file Sexual Orientation Not on file documented as of this encounter Plan of Treatment Not on file documented as of this encounter Visit Diagnoses Not on filedocumented in this encounter Care Teams Chocolate Temperer Relationship Specialty Start Date End Date Deandre Mayberry DO [address] [place] [address] PCP - General 09/18/18 Noah Mckee MD [address] [place] [address] Medical Oncologist/Hematologis t Medical Oncology 09/19/17 Rick Redmond MD [address] [place] [address] Referring Physician Hematology 09/19/17 Noah Mckee MD [address] [place] [address] Medical Oncologist/Hematologis t Medical Oncology 02/10/19 Ailin Rodríguez MD [address] [facility] [address] [place] [address] Consulting Physician Radiation Oncology 10/14/19 Fantasma Poole Chi, MD [address] [facility] [address] [place] [address] Pulmonary Disease 10/27/20 Mandy Lee DO [address] [facility] [address] [place] [address] Consulting Physician Endocrinology Diabetes & Metabolism 01/07/21 documented as of this encounter
--- OUTSIDE RECORDS SUMMARY | 2024-08-26 13:20 | XMS_ITS | Encounter Summary ---
Author Organization [facility] Address [address] [facility] [place] [address] Care Team Providers Care Logistical Engineer Name Role Phone Eric Vu MD Primary Care Provider [phone] Encounter Details Date Type Department Care Team (Late st Contact Info) Description 04/11/2018 Lab Requisition [facility] Care DermPath Lab [address] [place] [address] Kendall Hinton MD [address] [place] [address] Social History Tobacco Use Types Packs/Day Years Used Date Smoking Tobacco: Never Assessed Comments Unknown Sex and Gender Information Value Date Recorded Sex Assigned at Not on file Legal Sex Female 5:50 PM SERVICE STATION EQUIPMENT MECHANIC Gender Identity Not on file Sexual Orientation Not on file documented as of this encounter Plan of Treatment Not on file documented as of this encounter Procedures Procedure Name Priority Date/Time Associated Diagnosis Comments DERMATOPATHOLOGY Routine 04/10/2018 12:0 0 AM SERVICE STATION EQUIPMENT MECHANIC documented in this encounter Results * DERMATOPATHOLOGY (04/10/2018 12:00 AM SERVICE STATION EQUIPMENT MECHANIC) Case Report Dermatopathology Report Case: [id number] Authorizing Provider: Kendall Hinton MD Collected: 04/10/2018 12:00 AM Pathologist: Loretta Zhang MD Received: 04/11/2018 12:13 PM Specimen: Skin, right of midline frontal scalp 9 1:10 PM SERVICE STATION EQUIPMENT MECHANIC DERMATOPATHOLOGY LABORATORY Final Diagnosis Specimen A. SKIN, right of midline frontal scalp: INTRADERMAL MELANOCYTIC NEVUS (D22.4) 9 1:10 PM SERVICE STATION EQUIPMENT MECHANIC DERMATOPATHOLOGY LABORATORY at [address] SERVICE STATION EQUIPMENT MECHANIC Clinical History R/O EIC vs SK. 1:10 PM SERVICE STATION EQUIPMENT MECHANIC DERMATOPATHOLOGY LABORATORY Gross Description Specimen A: Received is one formalin filled container labeled with the patient's name and designated right of midline frontal scalp. The specimen consists of a punch biopsy measuring 6k1a9in, bisected. Jar 0. 1:10 PM SERVICE STATION EQUIPMENT MECHANIC DERMATOPATHOLOGY LABORATORY Microscopic Description Specimen A. SKIN, right of midline frontal scalp: There are nests of cytologically bland melanocytes within the dermis that mature with depth. 1:10 PM SERVICE STATION EQUIPMENT MECHANIC DERMATOPATHOLOGY LABORATORY Disclaimer An external and internal positive and negative controls are appropriate for the histochemical, immunohistochemical and immunofluorescence stain(s) in this case (if any), except where stated explicitly. The performance characteristics of the stain(s) cited in this report were developed and its performance characteristic determined by the Dermatopathology Laboratory at [facility], directed by Dr. Mary Whitlock. These tests need not be, and therefore are not, approved by the [place] Food and Drug Administration. The tests are used for clinical purposes. Billing Codes Specimen Charges Stain Charges 93585 1 9 1:10 PM SERVICE STATION EQUIPMENT MECHANIC DERMATOPATHOLOGY LABORATORY Embedded Images 1:10 PM SERVICE STATION EQUIPMENT MECHANIC DERMATOPATHOLOGY LABORATORY Pathology/Cytolog y TISSUE SPECIMEN FROM SKIN / Unknown 04/10/2018 04/11/2018 12:13 PM SERVICE STATION EQUIPMENT MECHANIC us Kendall Hinton MD LAB - PATHOLOGY/CYTOLOGY ORD ERABLES Final Result DERMATOPATHOLOGY LABORATORY [facility] - Department of Dermatology [address] [facility], 5th [place] [address], [facility] [phone] documented in this encounter Visit Diagnoses Not on filedocumented in this encounter Care Teams Logistical Engineer Relationship Specialty Start Date End Date Eric Vu MD [address] [place] [address] PCP - General 04/18/17 documented as of this encounter
--- OUTSIDE RECORDS SUMMARY | 2024-08-26 13:20 | XMS_ITS | Encounter Summary ---
Author Organization [facility] Address [address] [place] [address] Care Team Providers Care Printed Circuit Board Panels Developer Name Role Phone Eric Vu MD Primary Care Provider [phone] Encounter Details Date Type Department Care Team (Late st Contact Info) Description 04/15/2020 Lab Requisition [facility] [address] [place] [address] Kendall Hinton MD [address] [place] [address] Social History Tobacco Use Types Packs/Day Years Used Date Smoking Tobacco: Never Assessed Comments Unknown Sex and Gender Information Value Date Recorded Sex Assigned at Not on file Legal Sex Female 5:50 PM IRRIGATION TAX ASSESSOR COLLECTOR Gender Identity Not on file Sexual Orientation Not on file documented as of this encounter Plan of Treatment Not on file documented as of this encounter Procedures Procedure Name Priority Date/Time Associated Diagnosis Comments DERMATOPATHOLOGY Routine 04/14/2020 3:27 AM IRRIGATION TAX ASSESSOR COLLECTOR documented in this encounter Results * DERMATOPATHOLOGY (04/14/2020 3:27 AM IRRIGATION TAX ASSESSOR COLLECTOR) Case Report Dermatopathology Report Case: [id number] Authorizing Provider: Kendall Hinton MD Collected: 04/14/2020 03:27 AM Ordering Location: [facility] Received: 04/15/2020 01:24 PM Pathologist: Asya Whitlock MD Specimen: Skin, left mid paraspinal back 4:56 PM IRRIGATION TAX ASSESSOR COLLECTOR DERMATOPATHOLOGY LABORATORY Final Diagnosis Specimen A. SKIN, left mid paraspinal back: PIGMENTED SEBORRHEIC KERATOSIS (L82.1) 4:56 PM IRRIGATION TAX ASSESSOR COLLECTOR DERMATOPATHOLOGY LABORATORY at 1656 IRRIGATION TAX ASSESSOR COLLECTOR Clinical History R/O ISK vs dys nevus. 4:56 PM [facility] DERMATOPATHOLOGY LABORATORY Gross Description Specimen A: Received is one formalin filled container labeled with the patient's name and designated left mid paraspinal back. The specimen consists of a shave biopsy measuring [id number]. Jar 0. 4:56 PM [facility] DERMATOPATHOLOGY LABORATORY Microscopic Description Specimen A. SKIN, left mid paraspinal back: Sections show an acanthotic lesion composed of relatively uniform keratinocytes. There is hyperkeratosis and pseudo horn cysts. Pigment is present in the keratinocytes composing this tumor. 4:56 PM [facility] DERMATOPATHOLOGY LABORATORY Disclaimer An external and internal positive and negative controls are appropriate for the histochemical, immunohistochemical and immunofluorescence stain(s) in this case (if any), except where stated explicitly. The performance characteristics of the stain(s) cited in this report were developed and its performance characteristic determined by the Dermatopathology Laboratory at [facility], directed by Dr. Mary Whitlock. These tests need not be, and therefore are not, approved by the [place] Food and Drug Administration. The tests are used for clinical purposes. Billing Codes Specimen Charges Stain Charges 27605 1 4:56 PM [facility] DERMATOPATHOLOGY LABORATORY Embedded Images 4:56 PM [facility] DERMATOPATHOLOGY LABORATORY Pathology/Cytolo gy TISSUE SPECIMEN FROM SKIN / Unknown 04/14/2020 3:27 AM IRRIGATION TAX ASSESSOR COLLECTOR 04/15/2020 1:24 PM [facility] us Kendall Hinton MD LAB - PATHOLOGY/CYTOLOGY ORD ERABLES Final Result DERMATOPATHOLOGY LABORATORY [facility] - Department of Dermatology [address], [address] [phone] documented in this encounter Visit Diagnoses Not on filedocumented in this encounter Care Teams Printed Circuit Board Panels Developer Relationship Specialty Start Date End Date Eric Vu MD [address] [place] [address] PCP - General 04/18/17 documented as of this encounter
--- OUTSIDE RECORDS SUMMARY | 2024-08-26 13:20 | XMS_ITS | Encounter Summary ---
Author Organization [facility] Address [address] [place] [address] Phone Care Team Providers Care Gas Meter Repairer Name Role Phone Noah Mckee MD Unavailable Rick Redmond MD Unavailable [phone] Deandre Mayberry DO Primary Care Provider [phone] Noah Mckee MD Unavailable Ailin Rodríguez MD Unavailable Fantasma Poole Chi, MD Unavailable Mandy Lee DO Unavailable Encounter Details Date Type Department Care Team (Late st Contact Info) Description 07/05/2024 Results Follow-Up [facility] Infusion Therapy [address] [place] [address] Mandy Lee DO [address] [place] [address] XR Spine Cervical 2 or 3 Views Social History Tobacco Use Types Packs/Day Years [...] file Legal Sex Female 3:08 AM SUPERINTENDENT OIL FIELD DRILLING Gender Identity Not on file Sexual Orientation Not on file documented as of this encounter Plan of Treatment Not on file documented as of this encounter Visit Diagnoses Not on filedocumented in this encounter Care Teams Gas Meter Repairer Relationship Specialty Start Date End Date Deandre Mayberry DO [address] [place] [phone] PCP - General 09/18/18 Noah Mckee MD [address] [place], [place] [id number] Medical Oncologist/Hematologis t Medical Oncology 09/19/17 Rick Redmond MD [address] [place] [phone] Referring Physician Hematology 09/19/17 Noah Mckee MD [address] [place] [address] Medical Oncologist/Hematologis t Medical Oncology 02/10/19 Ailin Rodríguez MD [address] [place] [address] Consulting Physician Radiation Oncology 10/14/19 Fantasma Poole Chi, MD [address] [place] [address] Pulmonary Disease 10/27/20 Mandy Lee DO [address] [facility] [address] [place] [address] Consulting Physician Endocrinology Diabetes & Metabolism 01/07/21 documented as of this encounter
--- OUTSIDE RECORDS SUMMARY | 2024-08-26 13:20 | XMS_ITS | Clinical Summary ---
Author Organization [facility] Address [address] [place] [address] Care Team Providers Care Data Warehousing Engineer Name Role Phone Eric Vu MD Primary Care Provider [phone] Source Comments [facility],non-owned Affiliates and Associated Physician Practices is amultiple site organization consisting of ambulatory clinics and hospital sitesin [place], [place], [place] and [place]. This disclosure is being madepursuant to the Care Everywhere program and may not contain all information available regarding this patient. Last updated 17.[facility] Chromatin Social History Tobacco Use Types Packs/Day Years Used Date Smoking Tobacco: Never Assessed Comments Unknown Sex and Gender Information Value Date Recorded Sex Assigned at Not on file Legal Sex Female 5:50 PM HELP DESK TEAM LEADER Gender Identity Not on file Sexual Orientation Not on file Plan of Treatment Health Maintenance Due Date Last Done Comments BONE DENSITY TESTING 1955 COLOGUARD (AGES 45-75) - COL ON CA SCREENING 1956 COLON MONITORING 1956 COLONOSCOPY - COLON CA SCREENING 1956 CT COLONOGRAPHY - COLON CA SCREENING 1955 Colorectal Cancer Screening 1956 FIT - COLON CA SCREENING 1956 FLEX SIG - COLON CA SCREENING 1956 LIPID TESTING 1956 MAMMOGRAM 1956 HEPATITIS C SCREENING 05/23/1974 DTAP/TDAP/TD VACCINES (1 - Tdap) 05/28/1975 PNEUMOCOCCAL VACCINE 50+ (1 of 1 - PCV) 2006 ZOSTER VACCINE (1 of 2) 2006 COVID-19 VACCINE ( - 2023-2 5 season) 2023 DEPRESSION SCREENING 03/26/2024 INFLUENZA VACCINE (Season Ended) 2024 Respiratory Syncytial Virus (RSV) Vaccine Pt: or over 60 yrs (1 - 1-dose 75+ series) 05/28/2031 HEPATITIS B VACCINE Aged Out No longe r eligible based on patient's age to complete this topic HIB VACCINE Aged Out No longer eligi ble based on patient's age to complete this topic HPV VACCINE Aged Out No longer eligi ble based on patient's age to complete this topic MENINGOCOCCAL (Group B) VACC INE SHARED DECISION-MAKING Aged Out No longer eligibl e based on patient's age to complete this topic MENINGOCOCCAL GROUPS A/C/Y/W VACCINE Aged Out No longer eligible b ased on patient's age to complete this topic Insurance [facility] Care Teams Data Warehousing Engineer Relationship Specialty Start Date End Date Eric Vu MD [address] [place] [phone] PCP - General 04/18/17
--- OUTSIDE RECORDS SUMMARY | 2024-08-26 13:20 | XMS_ITS | Encounter Summary ---
Author Organization [facility] Address [address] [place] [address] Phone Care Team Providers Care Investments Manager Name Role Phone Noah Mckee MD Unavailable Rick Redmond MD Unavailable [phone] Deandre Mayberry DO Primary Care Provider [phone] Noah Mckee MD Unavailable Ailin Rodríguez MD Unavailable Fantasma Poole Chi, MD Unavailable [phone] Mandy Lee DO Unavailable Encounter Details Date Type Department Care Team (Late st Contact Info) Description 06/23/2022 Orders Only [facility] Oncology [address] [place] [address] Noah Mckee MD [address] [facility] [address] [place] [address] Malignant neuroendocrine neoplasm (HCC) (Primary Dx) Social History Tobacco Use Types Packs/Day Years Used Date Smoking Tobacco: Former Cigarettes 1 33 0 03/26/1971 - 03/26/2004 Smokeless Tobacco: Never Alcohol Use Standard Drinks/Week [...] on file 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 ADDITIONAL INFORMATION This test was developed and its performance characteristics determined by [facility] in a manner consistent with CLIA requirements. This test has not been cleared or approved by the U.S. Food and Drug Administration. In some immunoassays, the presence of unusually high concentrations of analyte may result in a high-dose hook effect. This may result in a lower or even normal measured analyte concentration. If the reported result is inconsistent with the clinical presentation, the laboratory should be alerted for troubleshooting. For diagnostic purposes, these immunoassay results should always be assessed in conjunction with the patients medical history, clinical examination and other findings. The testing method is a homogeneous time-resolved immunofluorescent assay manufactured by [employer] and performed on the [employer] Kryptor Compact Plus. Values obtained with different assay methods or kits may be different and cannot be used interchangeably. Test results cannot be interpreted as absolute evidence for the presence or absence of malignant disease. Test Performed by: [address] [address] Accounts Officer: Jimmie Meng M.D. Ph.D.; CLIA# [id number] Blood 08/07/2022 9:30 AM CDT 08/07/2022 11:11 AM CDT Noah Mckee MD LAB BLOOD ORDERABLES Allie carballo Result [facility] [id number] Department [place] [address] * (ABNORMAL) Comprehensive metabolic panel (08/07/2022 9:30 AM CDT) Sodium 137 135 - 145 mmol/L [facility] Comment:Testing performed by : [facility],[address] [place] [address] Potassium, pl 3.7 3.3 - 4.9 mmol/L [facility] Comment:Testing performed by : [facility],[address] [place] [address] Chloride 99 97 - 110 mmol/L [facility] Comment:Testing performed by : [facility],[address] [place] [address] CO2 29 22 - 32 mmol/L [facility] Comment:Testing performed by : [facility],[address] [place] [address] Anion gap 9 2 - 15 mmol/L [facility] Comment:Testing performed by : [facility],[address] [place] [address] BUN 15 8 - 25 mg/dL [facility] Comment:Testing performed by : [facility],[address] [place] [address] Creatinine 0.94 0.60 - 1.10 mg/dL [facility] Comment:[facility] [address] [place] [address] Glucose 124 70 - 199 mg/dL [facility] Comment: Interpretive Data Fasting glucose >/= 126 mg/dl is diagnostic for diabetes. Fasting is defined as no caloric intake for at least 8 hours. Fasting glucose between 100 mg/dl to 125 mg/dl is diagnostic of prediabetes. In a patient with classic symptoms of hyperglycemia or hyperglycemic crisis, a random glucose >/= 200 mg/dl is diagnostic for diabetes. In the absence of unequivocal hyperglycemia, results should be confirmed by repeat testing. The classification and Diagnosis of Diabetes Diabetes Care 202; 46: S19-S40. Current interpretive data was last revised 2022. Testing performed by: [facility],[address] [place] [address] Calcium 9.1 8.5 - 10.3 mg/dL [facility] Comment:Testing performed by : [facility],[address] [place] [address] Bilirubin, total 0.3 0.1 - 1.2 mg/dL [facility] Comment:Testing performed by : [facility],[address] [place] [address] Protein, pl 7.3 6.5 - 8.5 g/dL [facility] Comment:Testing performed by : [facility] [address] [place] [address] Albumin 4.4 3.5 - 5.0 g/dL [facility] Comment:Testing performed by : [facility] [address] [place] [address] Alk phos 106 40 - 130 Units/L [facility] Comment:Testing performed by : [facility],[address] [place] [address] ALT 51(H) 7 - 45 Units/L [facility] Comment:Testing performed by : [facility] [address] [place] [address] AST 60(H) 10 - 45 Units/L [facility] Comment:Testing performed by : [facility] [address] [place] [address] Blood 08/07/2022 9:30 AM CDT 08/07/2022 9:34 AM CDT Noah Mckee MD LAB BLOOD ORDERABLES Edit ed Result - Final [facility] [address] Department [place] [address] * (ABNORMAL) Serotonin serum (08/07/2022 9:30 AM CDT) Serotonin 1720(H) <=230 ng/mL [facility] Comment: ADDITIONAL INFORMATION This test was developed and its performance characteristics determined by [facility] in a manner consistent with CLIA requirements. This test has not been cleared or approved by the U.S. Food and Drug Administration. Test Performed by: [facility] [address] [place] [address] Accounts Officer: Jimmie Meng M.D. Ph.D.; CLIA# [id number] Blood 08/07/2022 9:30 AM CDT 08/07/2022 11:13 AM CDT Noah Mckee MD LAB BLOOD ORDERABLES Allie l Result [facility] [address] [address] [facility] [address] [place] [address] * (ABNORMAL) Iron profile w/ IBC (08/07/2022 9:30 AM CDT) Pathologist [facility] Iron 37 35 - 145 mcg/dl [facility] TIBC 292 250 - 400 mcg/dL [facility] Transferrin saturation 13(L) 20 - 50 % [facility] Blood 08/07/2022 9:30 AM CDT 08/07/2022 11:21 AM CDT Noah Mckee MD LAB BLOOD ORDERABLES Allie l Result Performing Organization Address City/[facility]/ZIP Co de Phone Number [facility] [address] [address] Department [address] [place] [address] * (ABNORMAL) CBC with auto differential (08/07/2022 9:30 AM CDT) Pathologist [facility] WBC 4.0 3.8 - 9.9 K/cumm [facility] Comment:Testing performed by : [facility],[address] [facility] [address] Hgb 12.6 11.9 - 15.5 g/dL [facility] Comment:Testing performed by : [facility],[address] [facility] [address] Hct 38.6 35.6 - 45.5 % [facility] Comment:Testing performed by : [facility],[address] [address] Plt 317 150 - 400 K/cumm [facility] Comment:Testing performed by : [facility],[address] [address] MPV 9.1 9.1 - 12.3 fL [facility] Comment:Testing performed by : [place] [address] [address] RBC 5.08 3.90 - 5.20 M/cumm [facility] Comment:Testing performed by : [place] [address] [address] MCV 76.0(L) 81.3 - 96.4 fL [facility] Comment:Testing performed by : [facility] [address] [address] MCH 24.8(L) 27.1 - 33.3 pg [facility] Comment:Testing performed [facility] : [facility] [address] [address] MCHC 32.6 32.3 - 35.7 g/dL [facility] Comment:Testing performed by : [place] [address] [address] RDW CV 15.5(H) 11.1 - 14.9 % [facility] Comment:Testing performed by : [place] [address] [address] RDW SD 42.5 35.7 - 48.1 fL [facility] Comment:Testing performed by : [place] [address] [address] NRBC abs 0.00 0.00 - 0.01 K/cumm [facility] Comment:Testing performed by : [place] [address] [address] Blood 08/07/2022 9:30 AM CDT 08/07/2022 9:34 AM CDT Noah Mckee MD LAB BLOOD ORDERABLES Allie haris Result [facility] [address] Department [place] [address] documented in this encounter Visit Diagnoses Diagnosis Malignant neuroendocrine neoplasm (HCC)- Primary documented in this encounter Orders Appointment Requests Count Last Ordered Date Fi rst Ordered Date ONCBCN INJECTION APPOINTMENT REQUEST 1 07/24 ONCBCN LAB APPOINTMENT 1 08/07/2022 documented in this encounter Care Teams Investments Manager Relationship Specialty Start Date End Date Deandre Mayberry DO [address] [place] [phone] PCP - General 09/18/18 Noah Mckee MD [address] [facility] [address] [place] [address] Medical Oncologist/Hematologis t Medical Oncology 09/19/17 Rick Redmond MD [address] [place] [phone] Referring Physician Hematology 09/19/17 Noah Mckee MD [address] [place] [address] Medical Oncologist/Hematologis t Medical Oncology 02/10/19 Ailin Rodríguez MD [address] [place] [address] Consulting Physician Radiation Oncology 10/14/19 Fantasma Poole Chi, MD [address] [place] [address] Pulmonary Disease 10/27/20 Mandy Lee DO [address] [facility] [address] [place] [address] Consulting Physician Endocrinology Diabetes & Metabolism 01/07/21 documented as of this encounter
--- OUTSIDE RECORDS SUMMARY | 2024-08-26 13:20 | XMS_ITS ---
Author Organization [facility] [address] Address [address] [place] [address] Care Team Providers Care Panelboard Assembler Name Role Phone Noah Mckee MD Unavailable Rick Redmond MD Unavailable [phone] Deandre Mayberry DO Primary Care Provider [phone] Noah Mckee MD Unavailable Ailin Rodríguez MD Unavailable Fantasma Poole Chi, MD Unavailable [phone] Mandy Lee DO Unavailable Active Problems Problem Noted Date Diagnosed Date Mixed hyperlipidemia 04/03/2024 Assessment & Plan (04/03/2024 1:17 PM VETERINARY BACTERIOLOGIST): Stable continue Crestor Bilateral carotid artery stenosis 10/05/2023 Assessment & Plan (04/03/2024 1:17 PM VETERINARY BACTERIOLOGIST): Stable bilateral moderate asymptomatic ICA stenosis. Continue [...] 10/05/2023 Assessment & Plan (04/03/2024 1:17 PM VETERINARY BACTERIOLOGIST): Stable continue amlodipine Assessment & Plan (10/05/2023 11:26 AM CDT): Stable continue amlodipine 10 mg. 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:Clinical stage from 04/01/2017:Stage IVB(cN1, pM1) - Signed by Laquita Serrano MD on 10/14/2019 Abnormal EKG 08/09/2010 Pneumonitis Current Treatment and Therapy Plans EVEROLIMUS 7.5MG - patient started lower dose outside treatment plan previously * Plan Start Date:10/24/2021 Plan Provider:Noah Mckee MD Linked Problems Neuroendocrine carcinoma met astatic to liver (HCC) Treatment Medications Current Day (Day 1 , Cycle 37 - Planned for 08/11/2024) Next Day (Day 1, Cycle 38 - Planned for 09/08/2024) dexAMETHasone (DECADRON) 0.1 mg/mLeverolimus (AFINITOR) dexAMETHasone oral liquid 0.5 mg/5 mLeverolimus (AFINITOR) 7.5 mg tablet dexAMETHasone oral liquid 0.5 mg/5 mLeverolimus (AFINITOR) 7.5 mg tablet iron sucrose (Venofer) Infusion* Plan Start Date:02/19/2023 Plan Provider:Noah Mckee MD Linked Problems Low serum ironNeuroendocrine carcinoma metastatic to liver (HCC) Treatment Medications No medications scheduled. Octreotide 28 Day Cycles - Carcinoid* Plan Start Date:2017 Plan Provider:Noah Mckee MD Linked Problems Malignant neuroendocrine marisol plasm (HCC) Treatment Medications Current Day (Day 1 , Cycle 95 - Planned for 09/08/2024) Next Day (Day 1, Cycle 96 - Planned for 10/06/2024) octreotide (SandoSTATIN LAR)octreotide LAR (SandoSTATIN LAR) octreotide LAR (SandoSTATIN LAR) extended release intramuscular injection 30 mg octreotide LAR (SandoSTATIN LAR) extended release intramuscular injection 30 mg Past Treatment and Therapy Plans No past plan information found. Lifetime Dose Tracking * Chemical Lifetime Dose Automatic Entry Manual Entr y DLP 3,907 mGycm 3,907 mGycm 0 mGycm Resolved Problems Problem Noted Date Diagnosed Date Resolved Date Decreased renal function 03/07/2023
--- OUTSIDE RECORDS SUMMARY | 2024-08-26 13:20 | XMS_ITS | Encounter Summary ---
Author Organization [facility] Address [address] [place] [address] Care Team Providers Care Administrative Library Assistant Name Role Phone Eric Vu MD Primary Care Provider [phone] Encounter Details Date Type Department Care Team (Late st Contact Info) Description 04/25/2018 Lab Requisition [facility] Care DermPath Lab [address] [place] [address] Kendall [place] [address] Social History Tobacco Use Types Packs/Day Years Used Date Smoking Tobacco: Never Assessed Comments Unknown Sex and Gender Information Value Date Recorded Sex Assigned at Not on file Legal Sex Female 5:50 PM TIRE ASSEMBLER Gender Identity Not on file Sexual Orientation Not on file documented as of this encounter Plan of Treatment Not on file documented as of this encounter Procedures Procedure Name Priority Date/Time Associated Diagnosis Comments IMMUNOFLUORESCENT STUDY DERM Routine 04/24/2018 12:00 AM TIRE ASSEMBLER documented in this encounter Results * IMMUNOFLUORESCENT STUDY DERM (04/24/2018 12:00 AM TIRE ASSEMBLER) Case Report Dermatopathol ogy Report Case: [id number] Authorizing Provider: Kendall Hinton MD Collected: 04/24/2018 12:00 AM Pathologist: Loretta Zhang MD Received: 04/25/2018 01:59 PM Specimen: Skin, left proximal forearm 9 6:02 PM TIRE ASSEMBLER DERMATOPATHOLOGY LABORATORY Final Diagnosis Specimen A. SKIN, left proximal forearm: COLLOID BODIES (L98.9) (see microscopic description and comment) (see fixed tissue results, [id number]) 9 6:02 PM TIRE ASSEMBLER DERMATOPATHOLOGY LABORATORY at 1802 TIRE ASSEMBLER Direct Immunofluorescence Report - Specimen A Specimen A IgA IgM IgG C3 CollV Fibrinogen Epidermis Negative Negative Negative Negative Negative Negative Basement Membrane Negative Negative Negative Negative 2+ Negative Vessels Negative Negative Negative Negative 2+ Negative Interstitium Colloid bodies Colloid bodies Colloid bodies Negative Negative Non specific 9 6:02 PM TIRE ASSEMBLER DERMATOPATHOLOGY LABORATORY Clinical History R/O blister disorder, hand foot and mouth disease. 9 6:02 PM [facility] DERMATOPATHOLOGY LABORATORY Gross Description Specimen A: Received is one Benedicto's media filled container labeled with the patient's name and designated left proximal forearm. The specimen consists of a punch biopsy measuring 5l7h7ts. The specimen is submitted in whole for direct immunofluores cence testing. 9 6:02 PM [facility] DERMATOPATHOLOGY LABORATORY Microscopic Description Specimen A. SKIN, left proximal forearm: Controls were run in parallel. There is IgA, IgG, and IgM in the papillary dermis consistent with colloid bodies. Staining is negative with C3. Collagen IV stains the basement membrane zone and vessels. Fibrinogen shows non-specific staining. A hematoxylin and eosin stained frozen section appears to represent perilesional skin with minimal inflammation present. COMMENT: Colloid bodies represent dyskeratotic keratinocytes that can be seen in lichenoid / interface dermatitis or in areas of chronic irritation / rubbing. 9 6:02 PM [facility] DERMATOPATHOLOGY LABORATORY Disclaimer An external and internal positive and negative controls are appropriate for the histochemical , immunohistoch emical and immunofluores cence stain(s) in this case (if any), except where stated explicitly. The performance characteristi cs of the stain(s) cited in this report were developed and its performance characteristi c determined by the Dermatopathol ogy Laboratory at [facility], directed by Dr. Mary Whitlock. These tests need not be, and therefore are not, approved by the [place] Food and Drug Administratio n. The tests are used for clinical purposes. Billing Codes Specimen Charges Stain Charges 10728 91093 05448 00765 13169 21550 1 1 1 1 1 1 9 6:02 PM [facility] DERMATOPATHOLOGY LABORATORY Embedded Images 9 6:02 PM [facility] DERMATOPATHOLOGY LABORATORY Pathology/Cytolog y TISSUE SPECIMEN FROM SKIN / Unknown 04/24/2018 04/25/2018 1:59 PM TIRE ASSEMBLER Kendall Hinton MD LAB - PATHOLOGY/CYTOLOGY ORD ERABLES Final Result DERMATOPATHOLOGY LABORATORY [facility] - Department of Dermatology [address] [place] [address], 5th Floor Lab [address] [phone] documented in this encounter Visit Diagnoses Not on filedocumented in this encounter Care Teams Administrative Library Assistant Relationship Specialty Start Date End Date Eric Vu MD [address] [place] [address] PCP - General 04/18/17 documented as of this encounter
--- OUTSIDE RECORDS SUMMARY | 2024-08-26 13:20 | XMS_ITS | Encounter Summary ---
Author Organization [facility] Address [address] [place] [address] Phone Care Team Providers Care Production Tester Name Role Phone Noah Mckee MD Unavailable [phone] Rick Redmond MD Unavailable [phone] Deandre Mayberry DO Primary Care Provider [phone] Noah Mckee MD Unavailable Ailin Rodríguez MD Unavailable Fantasma Poole Chi, MD Unavailable [phone] Mandy Lee DO Unavailable Encounter Details Date Type Department Care Team (Latest Contact Info) Description 04/04/2023 Orders Only [facility] Scanning, Provider Social History Tobacco Use Types Packs/Day Years [...] on file 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 Gender Identity Not on file Sexual Orientation Not on file documented as of this encounter Plan of Treatment Not on file documented as of this encounter Procedures Procedure Name Priority Date/Time Associated Diagnosis Comments GI - RESULT 04/04/2023 documented in this encounter Results * GI - RESULT (04/04/2023) Anatomical Region Laterality Modality Other us Provider Scanning Final Result documented in this encounter Visit Diagnoses Not on filedocumented in this encounter Care Teams Production Tester Relationship Specialty Start Date End Date Deandre Mayberry DO [address] [place] [address] PCP - General 09/18/18 Noah Mckee MD [address] [place], [place] [id number] Medical Oncologist/Hematologis t Medical Oncology 09/19/17 Rick Redmond MD [address] [place] [address] Referring Physician Hematology 09/19/17 Noah Mckee MD [address] [place] [address] Medical Oncologist/Hematologis t Medical Oncology 02/10/19 Ailin Rodríguez MD [address] [place] [address] Consulting Physician Radiation Oncology 10/14/19 Fantasma Poole Chi, MD [address] [place] [address] Pulmonary Disease 10/27/20 Mandy Lee DO [address] [facility] [address] [place] [address] Consulting Physician Endocrinology Diabetes & Metabolism 01/07/21 documented as of this encounter
--- OUTSIDE RECORDS SUMMARY | 2024-08-26 13:20 | XMS_ITS | Encounter Summary ---
Author Organization [facility] Address [address] [facility] [address] Care Team Providers Care Sweatband Separator Name Role Phone Eric Vu MD Primary Care Provider [phone] Encounter Details Date Type Department Care Team (Late st Contact Info) Description 04/25/2018 Lab Requisition [facility] Care DermPath Lab [address] [place] [address] Kendall Hinton MD [address] [place] [address] Social History Tobacco Use Types Packs/Day Years Used Date Smoking Tobacco: Never Assessed Comments Unknown Sex and Gender Information Value Date Recorded Sex Assigned at Not on file Legal Sex Female 5:50 PM FISHING GAME WARDEN Gender Identity Not on file Sexual Orientation Not on file documented as of this encounter Plan of Treatment Not on file documented as of this encounter Procedures Procedure Name Priority Date/Time Associated Diagnosis Comments DERMATOPATHOLOGY Routine 04/24/2018 12:0 0 AM FISHING GAME WARDEN documented in this encounter Results * DERMATOPATHOLOGY (04/24/2018 12:00 AM FISHING GAME WARDEN) Case Report Dermatopathology Report Case: [id number] Authorizing Provider: Kendall Hinton MD Collected: 04/24/2018 12:00 AM Pathologist: Loretta Zhang MD Received: 04/25/2018 01:57 PM Specimens: A) - Skin, left chest B) - Skin, left prooximal forearm 9 6:01 PM FISHING GAME WARDEN DERMATOPATHOLOGY LABORATORY Final Diagnosis Specimen A. SKIN, left chest: SUPERFICIAL AND DEEP PERIVASCULAR LYMPHOCYTIC INFILTRATE WITH EOSINOPHILS (L30.8) (see microscopic description and comment) (see direct immunofluorescence results, [id number]) Specimen B. SKIN, left proximal forearm: SUPERFICIAL AND DEEP PERIVASCULAR LYMPHOCYTIC INFILTRATE WITH EOSINOPHILS (L30.8) (see microscopic description and comment) (see direct immunofluorescence results, [id number]) 9 6:01 PM [facility] DERMATOPATHOLOGY LABORATORY at [address] FISHING GAME WARDEN Clinical History A-B: R/O blister disorder, hand foot and mouth disease. 9 6:01 PM [facility] DERMATOPATHOLOGY LABORATORY Gross Description Specimen A: Received is one formalin filled container labeled with the patient's name and designated left chest. The specimen consists of a punch biopsy measuring 3m6x9cp, bisected. Jar 0. Specimen B: Received is one formalin filled container labeled with the patient's name and designated left prooximal forearm. The specimen consists of a punch biopsy measuring 6h7y0xt, bisected. Jar 0. 9 6:01 PM [facility] DERMATOPATHOLOGY LABORATORY Microscopic Description Specimen A. SKIN, left chest: Specimens A and B show similar histologic findings. The epidermis shows focal parakeratosis and spongiosis, with formation of spongiform vesicles. There is a superficial and deep, wedge-shaped, perivascular and interstitial infiltrate of lymphocytes with numerous eosinophils. COMMENT: The differential diagnosis for these histologic findings includes an arthropod bite reaction, a bullous drug eruption and less a bullous contact dermatitis. The histology of fwpx-oqnp-wxxul disease is not specific, but usually shows dyskeratosis and is neutrophil-predomin ant. Thus, while it cannot be completely excluded, it is felt to be less likely The direct immunofluorescence results do not support an immunobullous process. See direct immunofluorescence results. Specimen B. SKIN, left proximal forearm: See microscopic description and comment for Specimen A. 9 6:01 PM [facility] DERMATOPATHOLOGY LABORATORY Disclaimer An external and internal positive and negative controls are appropriate for the histochemical, immunohistochemical and immunofluorescence stain(s) in this case (if any), except where stated explicitly. The performance characteristics of the stain(s) cited in this report were developed and its performance characteristic determined by the Dermatopathology Laboratory at [facility], directed by Dr. Mary Whitlock. These tests need not be, and therefore are not, approved by the [place] Food and Drug Administration. The tests are used for clinical purposes. Billing Codes Specimen Charges Stain Charges 65278 66345 1 1 9 6:01 PM FISHING GAME WARDEN DERMATOPATHOLOGY LABORATORY Embedded Images 9 6:01 PM FISHING GAME WARDEN DERMATOPATHOLOGY LABORATORY Pathology/Cytology TISSUE SPECIMEN FROM SKIN / Unknown 04/24/2018 04/25/2018 1:57 PM FISHING GAME WARDEN Miscellaneous samples (specimen) TISSUE SPECIMEN FROM SKIN / Unknown 04/24/2018 04/25/2018 1:57 PM FISHING GAME WARDEN Kendall Hinton MD LAB - PATHOLOGY/CYTOLOGY ORD ERABLES Final Result DERMATOPATHOLOGY LABORATORY [facility] - Department of Dermatology [address] [place] [address] [address] [phone] documented in this encounter Visit Diagnoses Not on filedocumented in this encounter Care Teams Sweatband Separator Relationship Specialty Start Date End Date Eric Vu MD [address] [place] [address] PCP - General 04/18/17 documented as of this encounter
--- OUTSIDE RECORDS SUMMARY | 2024-08-26 13:21 | XMS_ITS | Referral Summary ---
Author Organization [facility] [address] Address [address] [place] [address] Care Team Providers Care Commercial Credit Lead Name Role Phone Noah Mckee MD Unavailable Rick Redmond MD Unavailable [phone] Deandre Mayberry DO Primary Care Provider [phone] Noah Mckee MD Unavailable Ailin Rodríguez MD Unavailable Fantasma Poole Chi, MD Unavailable Mandy Lee DO Unavailable Encounters Date Type Department Care Team Description 08/26/2024 Orders Only [facility] Oncology [address] [place] [address] Noah Mckee MD 08/11/2024 Orders Only [facility] Oncology [facility] [address] [place] [address] Noah Mckee MD 08/11/2024 9:15 AM CDT Infusion [facility] [address] [place] [address] [phone] Malignant neuroendocrine neoplasm (HCC) (Primary Dx) 07/14/2024 9:15 AM CDT Infusion [facility] [address] [phone] Malignant neuroendocrine neoplasm (HCC) (Primary Dx) 07/10/2024 Results Follow-Up [facility] Endocrinology Metabolism and Lipid [address] [facility] 2nd Floor [address] [place] [address] Mandy Lee DO Albumin Creatinine Ratio, Urine, Hemoglobin A1c, Vitamin D 25 hydroxy, Additional followed-up results: 2 07/05/2024 Results Follow-Up [facility] Infusion Therapy [address] [facility] 2nd Floor [address] [place] [address] Mandy Lee DO XR Spine Cervical 2 or 3 Views 07/01/2024 10:38 AM CDT - 07/01/2024 11:59 PM CDT Hospital [facility] Radiology at [facility] [address] [place] [address] Decreased muscle strength Discharge Disposition: Discharge to home or self care 07/01/2024 10:25 AM CDT [facility] [address] [facility] [address] [place] [address] Prediabetes; Vitamin D deficiency, unspecified; Other hyperlipidemia; Hypothyroidism, unspecified type 07/01/2024 9:30 AM CDT Office Visit [facility] Endocrinology Metabolism and Lipid [address] [facility] 2nd Floor [address] [place] [address] Mandy Lee DO Scalp lesion (Primary Dx); Hypothyroidism, unspecified type; Other hyperlipidemia; Vitamin D deficiency, unspecified; Prediabetes; Decreased muscle strength; Carcinoid (except of appendix) (HCC); Primary hypertension 06/29/2024 Orders Only [facility] Oncology [address] [facility] Floor 8 [place] [address] Noah Mckee MD 06/16/2024 9:15 AM CDT Infusion [facility] [address] [place] [address] Malignant neuroendocrine neoplasm (HCC) (Primary Dx) 06/10/2024 Orders Only [facility] Oncology [address] [facility] Floor 5 [place] [address] Noah Mckee MD from Last 3 Months Allergies Active Allergy Reactions Criticality Noted Date Comments Amoxicillin Rash Medium 04/30/2017 Minocycline Other (See comments) Low 04/26/2017 When given with Spironolactone patient has severe pain and high blood pressure. Spironolactone Other (See comments) Low 06/07/2009 When given with Minocin patient has severe pain and high blood pressure. hypertension Medications vit D3-vit O-ulsaepljn-hkxa 673-126-00-370 rind-ahy-us-mg tablet Take by mouth Active multivitamin tabletIndication [...] aspgly,ps-C-B12- FA-Ca-suc (Ferrex 150 Forte Plus) 150-60-25-1 pe-ch-oax-mg capsuleIndicatio ns:Iron deficiency anemia, unspecified iron deficiency [...] 04/03/2024 Assessment & Plan (04/03/2024 1:17 PM CARTOGRAPHIC TECHNICIAN): Stable continue Crestor Bilateral carotid artery stenosis 10/05/2023 Assessment & Plan (04/03/2024 1:17 PM CARTOGRAPHIC TECHNICIAN): Stable bilateral moderate asymptomatic ICA stenosis. Continue [...] 10/05/2023 Assessment & Plan (04/03/2024 1:17 PM CARTOGRAPHIC TECHNICIAN): Stable continue amlodipine Assessment & Plan (10/05/2023 [...] Date Resolved Date Decreased renal function 03/07/2023 Immunizations Immunization Administration Dates Next Due Influenza, Quadrivalent, Tia l Culture-based MDCK, Preservative Free, Antibiotic Free, Intramuscular 01/12/2020 Influenza, Quadrivalent, Spl it, Preservative Free, Intramuscular 01/20/2019 ZOSTER Recombinant 07/12/2018,03/20/2018 Social History Tobacco Use Types Packs/Day Years [...] on file Legal Sex Female 3:08 AM CARTOGRAPHIC TECHNICIAN Gender Identity Not on file Sexual Orientation [...] 07/01/2024 9:27 AM CDT Plan of Treatment Not on file Procedures Procedure Name Priority Date/Time Associated Diagnosis [...] HEPATITIS PANEL, ACUTE Routine 02/10/2019 9:30 AM CARTOGRAPHIC TECHNICIAN Exposure to hepatitis from Last 3 Months [...] Electronically signed by: Francisco J Sanchez M.D. Mandy Lee DO IMG XR PROCEDURES Final Result * (ABNORMAL) Albumin Creatinine Ratio, Urine (07/01/2024 10:33 AM CDT) Pathologist [facility] Albumin Ur 76.8 mg/L Comment: Interpretive Data No reference range established. Current interpretive data was last revised 2018. Creatinine Ur 162.5 mg/dL [facility] Comment: Interpretive Data No reference range established. Current interpretive data was last revised 2018. Albumin Creatinine Ratio, Ur 47(H) 1 - 29 mg/g [facility] Urine 07/01/2024 10:3 3 AM CDT 07/01/2024 1:40 PM CDT Mandy Lee DO LAB URINE ORDERABLES Fi nal Result Performing Organization Address [facility] Co de Phone Number [facility] [place] [address] * Vitamin D 25 hydroxy (07/01/2024 10:33 AM CDT) Pathologist [facility] Vitamin D 25-OH 60 30 - 80 ng/mL Blood 07/01/2024 10:3 3 AM CDT 07/01/2024 1:40 PM CDT Mandy Lee DO LAB BLOOD ORDERABLES Fi nal Result Performing Organization Address [facility] Co de Phone Number [facility] Department [place] [address] * TSH (07/01/2024 10:33 AM CDT) Pathologist [facility] Thyroid Stimulating Hormone 1.94 0.30 - 4.20 mcIUnit/mL Blood 07/01/2024 10:3 3 AM CDT 07/01/2024 1:40 PM CDT [facility] LAB BLOOD ORDERABLES Fi nal Result Performing Organization Address [facility] [place] [address] * (ABNORMAL) Hemoglobin A1c (07/01/2024 10:33 AM CDT) [facility] Hgb A1C 6.1(H) 4.0 - 5.6 % Estimated Average Glucose 128 mg/dL [facility] Comment: The ADA recommends reporting an estimated Average Glucose (eAG) with all Hemoglobin A1c results using the equation derived from a study of 507 normal and diabetic adults. Minority populations were underrepresented and children were not included. (Diabetes Care 2020; 43(S1): S66-S76). The eAG is not equivalent to a fasting glucose. Blood 07/01/2024 10:3 3 AM CDT 07/01/2024 1:41 PM CDT [facility] LAB BLOOD ORDERABLES Fi nal Result Performing Organization Address [facility] [place] [address] * Lipid panel (07/01/2024 10:33 AM CDT) [facility] Cholesterol 167 30 - 199 mg/dL Comment: [...] revised on 2017. Triglycerides 85 <=149 mg/dL [facility] Comment: Interpretive Data Ages < or = [...] revised on 2017. HDL 81 >=40 mg/dL [facility] Comment: Interpretive Data Ages < or = [...] on 2017. LDL, calculated 70 <=129 mg/dL [facility] Comment: Interpretive Data Ages < or = [...] NCEP Expert Panel. Circulation 2004;110:227 3. Zhen M et al. DIONISIO Cardiol. 2020 July 24;55):540-548. doi: 10.1001/jamacardio.2020.0013 Current Interpretive Data was last revised on 2023. Non-HDL Cholesterol 86 mg/dL [facility] Comment: Interpretive Data Ages < or = [...] last revised on 2017. Chol/HDL ratio 2 [facility] Blood 07/01/2024 10:3 3 AM CDT 07/01/2024 1:40 PM CDT us Mandy Lee DO LAB BLOOD ORDERABLES Fi nal Result [facility] [place] [address] * FIT occult blood, fecal (06/15/2022 9:30 AM CDT) [facility] Signature Occult blood, fecal Negative Negative [facility] - 01 06/15/2022 9:30 AM CDT 06/15/2022 Comment:ST Narrative [facility] - 06/16/2022 4:11 PM CDT Performed at: - [facility] [id number] Carbon Lamp Cleaner: Abiel Cruz PhD, Phone: [phone] us Noah Mckee MD LAB BODY FLUIDS AND STOOL S ORDERABLES Final Result [facility] - 01 * Hepatitis panel, acute (02/10/2019 9:30 AM CARTOGRAPHIC TECHNICIAN) Hep A IgM Negative Negative [facility] Hep B core IgM Negative Negative [facility] Hep C Ab Negative Negative [facility] HepBsAg Nonreactive Nonreactive [facility] Blood specimen (specimen) 02/10/2019 9:30 AM CARTOGRAPHIC TECHNICIAN 02/10/2019 10:33 AM CARTOGRAPHIC TECHNICIAN us Noah Mckee MD LAB MICROBIOLOGY - GENERA L ORDERABLES Final Result [facility] [address] [place] [address] from Last 3 Months or Most Recently Relevant to Health Maintenance Insurance [employer] MEDICARE FOR LIFE MEDICARE FOR LIFE [facility] [employer] [facility] MEDICARE [facility] Care Teams Commercial Credit Lead Relationship Specialty Start Date End Date Deandre Mayberry DO [address] [place] [address] PCP - General 09/18/18 Noah Mceke MD [address] [facility] [address] [place], [place] [id number] Medical Oncologist/Hematologis t Medical Oncology 09/19/17 Rick Redmond MD [address] [place] [address] Referring Physician Hematology 09/19/17 Noah Mckee MD [address] [place] [address] Medical Oncologist/Hematologis t Medical Oncology 02/10/19 Ailin Rodríguez MD [address] [place] [address] Consulting Physician Radiation Oncology 10/14/19 Fantasma Poole Chi, MD [address] [place] [address] Pulmonary Disease 10/27/20 Mandy Lee DO [address] [facility] [address] [place], [place] [id number] Consulting Physician Endocrinology Diabetes & Metabolism 01/07/21
[2024-08-26 14:33] LABS: Erythrocyte Sedimentation Rate 16 mm/hr (0-20)
[2024-08-26 15:00] LABS: Free T4 Free Thyroxine 1.49 ng/dL (0.78-2.19)
[2024-08-26 17:10] LABS: Hemoglobin A1C 5.6 % (<5.7)
[2024-08-26 17:39] LABS: Alanine Aminotransferase 58 U/L (6-35); Albumin Level 4.2 g/dL (3.5-5.1); Alkaline Phosphatase 93 U/L (38-126); Anion Gap 6 mmol/L (4-12); Aspartate Amino Transferase 97 U/L (14-36); Bilirubin,Total 0.8 mg/dL (0.2-1.3); Blood Urea Nitrogen 21 mg/dL (7-17); CRP < 0.5 mg/dL (<1.0); Calcium 9.2 mg/dL (8.4-10.2); Carbon Dioxide 33 mmol/L (22-30); Chloride 100 mmol/L (98-107); Creatine Kinase 298 U/L (30-135); Estimated Glomerular Filt Rate 47; Glucose 98 mg/dL (65-110); Lactate Dehydrogenase 286 U/L (120-246); Potassium 3.2 mmol/L (3.4-5.0); Sodium 139 mmol/L (137-145); Total Protein 7.4 g/dL (6.3-8.2)
[2024-08-26 18:42] LABS: Folic Acid > 20.0 ng/mL (2.76->20)
[2024-08-29 12:29] LABS: Anti Nuclear Antibody Titer 1:40 titer
[2024-08-29 14:58] LABS: Aldolase. 6.2 U/L (< OR = 8.1)
[2024-09-09 07:52] LABS: Reference Lab Test Name Paraneoplastic Ab
== END 2024-08-26 13:06 | disposition home or self-care (01) ==
PROVIDERS: PCP Internal Medicine; Visit Provider Internal Medicine
DX: R73.9 Hyperglycemia, unspecified (principal); E03.9 Hypothyroidism, unspecified; C7B.8 Other secondary neuroendocrine tumors; M62.81 Muscle weakness (generalized); G62.9 Polyneuropathy, unspecified; R20.0 Anesthesia of skin
CPT/HCPCS: 36415; 80053; 82085; 82533; 82550; 82607; 82746; 83036; 83519; 83615; 84439; 84481; 85652; 86038; 86039; 86052; 86140; 86255; 86341; 86596

== ENCOUNTER 2024-09-12 16:24 | Emergency (ER) | payer MEDICARE, BC, OTHER, SELFPAY ==
[2024-09-12 16:37] VITALS: BP 181/84; PULSE 81; RESP 16; TEMP 36.9; O2SAT 99
--- NOTE | 2024-09-12 16:38 | ED.SKABFB ---
HPI - Skin/Abscess/Foreign Bdy General Chief complaint: Skin/Abscess/Foreign Body Stated complaint: infection Time Seen by Provider: 09/12/24 16:28 Source: patient Mode of arrival: ambulatory Limitations: no limitations History of Present Illness HPI narrative: Tiffanie is a 69 year old female patient presenting to the clinic today with complaints of a possible infection to her left forearm where she received a biopsy on Sunday. She reports last night the area became red, tender to palpation, and felt warm. No drainage. Denies any fevers, chills, body aches. Related Data Home Medications ?Medication ?Instructions ?Recorded ?Confirmed ?Last Taken ?Type octreotide acetate 50 mcg/mL 50 mcg subcut .[id number] 04/26/21 08/26/24 Unknown History injection solution everolimus (antineoplastic) 7.5 mg 7.5 mg PO DAILY 06/28/22 08/26/24 Unknown History tablet aspirin 81 mg tablet,delayed 81 mg PO DAILY 12/12/22 08/26/24 Unknown History release iron 150 mg-C 60 mg-B12 25 1 cap PO DAILY 12/12/22 08/26/24 Unknown History mcg-folic acid 1 fc-kinegwa-cy.acid capsule (Ferrex) levothyroxine 50 mcg tablet 25 mcg PO DAILY 11/19/23 08/26/24 Unknown History (Synthroid) Allergies Allergy/AdvReac Type Severity Reaction Status Date / Time amoxicillin Allergy Unknown Rash Verified 09/12/24 16:39 minocycline Allergy Unknown Pain Verified 09/12/24 16:39 spironolactone Allergy Unknown Pain Verified 09/12/24 16:39 Review of Systems Review of Systems: Pertinent positives per HPI. Patient denies any fever, chills, rash, headache, visual changes, dizziness, cough, runny nose, sore throat, shortness of breath, chest pain, palpitations, nausea, vomiting, diarrhea, constipation, abdominal pain, or any urinary issues. [facility] Past Medical History Medical History Metastatic malignant neuroendocrine tumor to liver Insomnia Restless leg syndrome Essential tremor Coronary artery disease (CAD) excluded Mitral valve regurgitation COVID-19 Hip pain Neuroendocrine cancer Disorder Post-menopausal Hypertension Post-menopausal Hypertension Neuroendocrine cancer Surgical History Surgical History Hx of LASIK Hx of LASIK Family History Family History Grandparent Family history of Alzheimer's disease, Onset Age: 86 Sibling Family history of malignant neoplasm of thyroid Father Heart failure Mother Heart failure Endocrine disorder Grandparent Alzheimer disease Kidney failure Sibling Thyroid cancer Cancer Other Family history of arthritis Family history of kidney disease Family history of mental disorder Family history of thyroid disease Hypertension Social History Social History Social History: Caffeine-1 cup daily Smoking packs per day: 1 Smoking cigarettes per day: 20.0 Years smoked: 33 Smoking pack-years: 33.00 Smoking status: Former smoker Tobacco type: cigarettes Smoking end date: 03/26/04 Alcohol intake: current Drinks per week: 5 Alcohol use details: rarely Substance use: never Substance use type: does not use Do You Feel Safe in your Home?: Yes Lack of Transportation: No Lack of Food: Never True Current Housing: I Have Housing Concerned About Future Housing: No Difficulty Paying Gas/Electric Bills: No Difficulty Paying for Meds: No Currently Unemployed: No Education: Bachelor's Degree Difficulty w/ Childcare or Family Care: No Living arrangements: with family Spiritual care concerns: No Comments At the time of my signature, I reviewed and agree with the nursing past medical, surgical, social, and family history. There is no relevant family history pertinent to the patient complaint. Exam Narrative: General: Well-developed, well nourished, in no apparent distress Head: Normocephalic, atraumatic. Cardio: Regular rate and rhythm, s1 and s2 normal, no murmur appreciated. Resp: Clear to auscultation bilaterally, no rhonchi, rales, wheezing or rubs. Integumentary: [place], warm, and dry, scabbed over surgical wound to the left volar forearm with localized redness and mild swelling, erythema and tenderness to palpation, no drainage Course Course Emergency Course: Portions of this record may have been created with voice recognition software. Level of Care: Express Care Visit Vital Signs Vital signs: Vital Signs Temperature 36.9 C 09/12/24 16:37 Pulse Rate 81 09/12/24 16:37 Respiratory Rate 16 09/12/24 16:37 Blood Pressure 181/84 H 09/12/24 16:37 Pulse Oximetry 99 09/12/24 16:37 Oxygen Delivery Room Air 09/12/24 16:37 Temperature 36.9 C 09/12/24 16:37 Pulse Rate 81 09/12/24 16:37 Respiratory Rate 16 09/12/24 16:37 Blood Pressure 181/84 H 09/12/24 16:37 Pulse Oximetry 99 09/12/24 16:37 Oxygen Delivery Room Air 09/12/24 16:37 Vital signs reviewed MDM - Skin/Abscess/Foreign Bdy MDM Narrative Medical decision making narrative: At the time of visit patient is resting comfortably on the exam table. Patient appears to be nontoxic. Plan: I suspect patient has postsurgical wound infection. Prescription for clindamycin and mupirocin cream was sent to the pharmacy. Supportive measures were discussed with the patient and they voiced understanding discharge instructions and agrees to treatment plan. Return precautions reviewed Differential Diagnosis Differential diagnosis: Likely abscess of skin or subcutaneous tissue, viral exanthem, dermatophytosis, urticaria, herpes zoster, allergic reaction to drug, cellulitis, eczema, insect bites, impetigo, contact dermatitis and other (Surgical wound infection) Discharge Plan Discharge Clinical Impression: Infected surgical wound Patient Disposition: Home Condition: Stable Instructions: Antibiotic Form, Wound Infection (ED) Additional Instructions: Take clindamycin and apply mupirocin cream to the affected area as directed Recommend taking a probiotic 2 hours before or 2 hours after taking 1 of the antibiotic doses Keep wound clean and dry. May take Tylenol/Motrin as needed for pain or fever Watch for signs and symptoms of infection-increase in redness, streaking, swelling, purulent discharge, or increase in pain. Follow up with your PCP in 3-4 days for wound check Patient Language: Greek Prescriptions: New mupirocin [Centany] 2 % ointment 1 applic topical BID 7 Days Qty: 22 0RF clindamycin HCl [Cleocin HCl] 300 mg capsule 300 mg PO Q8H 7 Days Qty: 21 0RF No Action aspirin 81 mg tablet,delayed release (DR/EC) 81 mg PO DAILY Ferrex 150 Forte Plus 150-60-25-1 vv-bh-hqw-mg capsule 1 cap PO DAILY everolimus (antineoplastic) 7.5 mg tablet 7.5 mg PO DAILY levothyroxine [Synthroid] 50 mcg tablet 25 mcg PO DAILY octreotide acetate 50 mcg/mL solution 50 mcg subcut .[id number] gabapentin 100 mg capsule See Rx Instructions .ROUTE .COMPLEX Qty: 90 3RF Dose Instruction: TAKE 1 TO 3 CAPSULES BY MOUTH EVERY NIGHT AT BEDTIME NEEDED FOR RESTLESS LEG SYNDROME Rx Instructions: TAKE 1 TO 3 CAPSULES BY MOUTH EVERY NIGHT AT BEDTIME NEEDED FOR RESTLESS LEG SYNDROME potassium chloride 10 mEq capsule, extended release 10 meq PO DAILY Qty: 90 0RF Follow-up/Referrals: Deandre Mayberry DO [Primary Care Provider] - Time of Disposition: 16:45 Quality NIHSS Nursing Documentation ED NIHSS nursing documentation: reviewed/agree
--- NOTE | 2024-09-16 13:45 | ECG_ITS ---
Test Date: 2024-09-16 13:49:44 Measurements Intervals [place] Rate: 74 P: 70 [place]: 176 QRS: 37 QRSD: 89 T: 82 QT: 410 QTc: 457 Interpretive Statements SINUS RHYTHM POSSIBLE LEFT ATRIAL ENLARGEMENT CANNOT R/O SEPTAL INFARCT, AGE INDETERMINATE BORDERLINE ST-T WAVE ABNORMALITY- HIGH LATERAL LEADS ABNORMAL ECG No previous ECG available for comparison Electronically Signed On 09-16-2024 14:30:09 CDT by Huy Thompson D.O.
--- NOTE | 2024-09-16 13:48 | ED_ITS ---
HPI - Skin/Abscess/Foreign Bdy General Chief complaint: Skin/Abscess/Foreign Body Stated complaint: infection Time Seen by Provider: 09/12/24 16:28 Source: patient Mode of arrival: ambulatory Limitations: no limitations History of Present Illness HPI narrative: 69-year-old female presents Express Care complaining of adverse reaction to medication. Patient was seen approximately 4 days ago for wound infection after she had a biopsy performed on her left forearm. She was started on clindamycin since then she states she has been having diarrhea and a burning sensation in her chest. Patient states she feels like she has to burp all the time. Patient states the burning sensation occurs in her chest right after she takes the dose to clindamycin. Patient states she will take a Tums in the sensation will sub side. Patient denies any nausea, vomiting, chest pressure, chest pain with exertion, shortness of breath, left arm pain, jaw pain, or any other symptoms. Patient would like a new antibiotic because she cannot tolerate the clindamycin. Patient denies any significant cardiac history. Related Data Home Medications ?Medication ?Instructions ?Recorded ?Confirmed ?Last Taken ?Type octreotide acetate 50 mcg/mL 50 mcg subcut .[id number] 04/26/21 08/26/24 Unknown History injection solution everolimus (antineoplastic) 7.5 mg 7.5 mg PO DAILY 06/28/22 08/26/24 Unknown History tablet aspirin 81 mg tablet,delayed 81 mg PO DAILY 12/12/22 08/26/24 Unknown History release iron 150 mg-C 60 mg-B12 25 1 cap PO DAILY 12/12/22 08/26/24 Unknown History mcg-folic acid 1 om-eeuzwhf-bs.acid capsule (Ferrex) levothyroxine 50 mcg tablet 25 mcg PO DAILY 11/19/23 08/26/24 Unknown History (Synthroid) Allergies Allergy/AdvReac Type Severity Reaction Status Date / Time amoxicillin Allergy Unknown Rash Verified 09/16/24 13:40 minocycline Allergy Unknown Pain Verified 09/16/24 13:40 spironolactone Allergy Unknown Pain Verified 09/16/24 13:40 Review of Systems Review of Systems: CONSTITUTIONAL: Denies fever, chills, or sweats. EYES: Denies visual changes, redness, or discharge. ENT: Denies rhinorrhea, congestion, sore throat, or otalgia. CARDIOVASCULAR: Denies chest pain, chest pain with exertion, jaw pain, left arm pain, chest pressure palpitations, or edema. RESPIRATORY: Denies cough or dyspnea. GASTROINTESTINAL: Denies abdominal pain, nausea, vomiting. Positive for indige stion and diarrhea GENITOURINARY: Denies dysuria or hematuria. SKIN: Denies rash or itching. MUSCULOSKELETAL: Denies back pain, joint pain, or myalgia. NEUROLOGIC: Denies headache, numbness, or weakness. PSYCHIATRIC: Denies anxiety or depression. All other systems reviewed are negative, except as documented in HPI. [facility] Past Medical History Medical History Metastatic malignant neuroendocrine tumor to liver Insomnia Restless leg syndrome Essential tremor Coronary artery disease (CAD) excluded Mitral valve regurgitation COVID-19 Hip pain Neuroendocrine cancer Disorder Post-menopausal Hypertension Post-menopausal Hypertension Neuroendocrine cancer Surgical History Surgical History Hx of LASIK Hx of LASIK Family History Family History Grandparent Family history of Alzheimer's disease, Onset Age: 86 Sibling Family history of malignant neoplasm of thyroid Father Heart failure Mother Heart failure Endocrine disorder Grandparent Alzheimer disease Kidney failure Sibling Thyroid cancer Cancer Other Family history of arthritis Family history of kidney disease Family history of mental disorder Family history of thyroid disease Hypertension Social History Social History Social History: Caffeine-1 cup daily Smoking packs per day: 1 Smoking cigarettes per day: 20.0 Years smoked: 33 Smoking pack-years: 33.00 Smoking status: Former smoker Tobacco type: cigarettes Smoking end date: 03/26/04 Alcohol intake: current Drinks per week: 5 Alcohol use details: rarely Substance use: never Substance use type: does not use Do You Feel Safe in your Home?: Yes Lack of Transportation: No Lack of Food: Never True Current Housing: I Have Housing Concerned About Future Housing: No Difficulty Paying Gas/Electric Bills: No Difficulty Paying for Meds: No Currently Unemployed: No Education: Bachelor's Degree Difficulty w/ Childcare or Family Care: No Living arrangements: with family Spiritual care concerns: No Comments At the time of my signature, I reviewed and agree with the nursing past medical, surgical, social, and family history. There is no relevant family history pertinent to the patient complaint. Exam Narrative: GENERAL: This is a well-nourished, well-developed adult, in no apparent distress. They are non ill-appearing, nontoxic appearing. HEAD: normocephalic, atraumatic. EYES: Sclera clear/white. Conjunctiva normal. Vision is grossly intact. Extraocular movements intact EARS: External ears normal, Hearing grossly intact. NOSE: External nose normal THROAT: Mucous membranes moist, NECK: Neck supple, CARDIOVASCULAR: Regular rate and rhythm without murmurs, gallops, or rubs. RESPIRATORY: Clear to auscultation. Breath sounds equal bilaterally. No wheezes, rales, or rhonchi. GASTROINTESTINAL: Abdomen soft, non-tender, nondistended. Bowel sounds are active. No hepato-splenomegaly, or palpable masses. No guarding. SKIN: Left forearm: Biopsy site present NEURO: awake, alert, and oriented to person, place and time. There were no obvious focal neurologic abnormalities. EXTREMITIES: No joint tenderness, effusion, or edema noted. BACK: Nontender without deformity. No CVA tenderness. Course Course Emergency Course: Portions of this record may have been created with voice recognition software Level of Care: Express Care Visit Vital Signs Vital signs: Vital Signs Temperature 98.5 F 09/12/24 16:37 Pulse Rate 81 09/12/24 16:37 Respiratory Rate 16 09/12/24 16:37 Blood Pressure 181/84 H 09/12/24 16:37 Pulse Oximetry 99 09/12/24 16:37 Oxygen Delivery Room Air 09/12/24 16:37 Temperature 98.5 F 09/12/24 16:37 Pulse Rate 81 09/12/24 16:37 Respiratory Rate 16 09/12/24 16:37 Blood Pressure 181/84 H 09/12/24 16:37 Pulse Oximetry 99 09/12/24 16:37 Oxygen Delivery Room Air 09/12/24 16:37 Reviewed MDM - Skin/Abscess/Foreign Bdy MDM Narrative Medical decision making narrative: Discussed physical exam findings. Advised supportive measures and signs/symptoms to go to the ER. Pt is appropriate for outpt treatment and f/u. Critical Care Time Critical Care Time Critical Care Time: No Discharge Plan Discharge Clinical Impression: Infected surgical wound Patient Disposition: Home Condition: Stable Instructions: Antibiotic Form, Wound Infection (ED) Additional Instructions: Take clindamycin and apply mupirocin cream to the affected area as directed Recommend taking a probiotic 2 hours before or 2 hours after taking 1 of the antibiotic doses Keep wound clean and dry. May take Tylenol/Motrin as needed for pain or fever Watch for signs and symptoms of infection-increase in redness, streaking, swelling, purulent discharge, or increase in pain. Follow up with your PCP in 3-4 days for wound check Patient Language: [place] Prescriptions: New mupirocin [Centany] 2 % ointment 1 applic topical BID 7 Days Qty: 22 0RF clindamycin HCl [Cleocin HCl] 300 mg capsule 300 mg PO Q8H 7 Days Qty: 21 0RF No Action aspirin 81 mg tablet,delayed release (DR/EC) 81 mg PO DAILY Ferrex 150 Forte Plus 150-60-25-1 zn-vc-jhl-mg capsule 1 cap PO DAILY everolimus (antineoplastic) 7.5 mg tablet 7.5 mg PO DAILY levothyroxine [Synthroid] 50 mcg tablet 25 mcg PO DAILY octreotide acetate 50 mcg/mL solution 50 mcg subcut .[id number] gabapentin 100 mg capsule See Rx Instructions .ROUTE .COMPLEX Qty: 90 3RF Dose Instruction: TAKE 1 TO 3 CAPSULES BY MOUTH EVERY NIGHT AT BEDTIME NEEDED FOR RESTLESS LEG SYNDROME Rx Instructions: TAKE 1 TO 3 CAPSULES BY MOUTH EVERY NIGHT AT BEDTIME NEEDED FOR RESTLESS LEG SYNDROME potassium chloride 10 mEq capsule, extended release 10 meq PO DAILY Qty: 90 0RF Follow-up/Referrals: Deandre Mayberry DO [Primary Care Provider] - Time of Disposition: 16:45
== END 2024-09-12 16:45 | disposition home or self-care (01) ==
PROVIDERS: Emergency Provider Nurse Practitioner Family; PCP Internal Medicine
DX: T81.49XA Infection following a procedure, other surgical site, initial encounter (principal); Z87.891 Personal history of nicotine dependence; I10 Essential (primary) hypertension; I34.0 Nonrheumatic mitral (valve) insufficiency; G25.81 Restless legs syndrome; Z85.89 Personal history of malignant neoplasm of other organs and systems; Z85.05 Personal history of malignant neoplasm of liver
CPT/HCPCS: 93005; 99213; G0463

== ENCOUNTER 2024-09-16 13:26 | Emergency (ER) | payer MEDICARE, BC, OTHER, SELFPAY ==
[2024-09-16 13:35] VITALS: BP 143/75; PULSE 86; RESP 16; TEMP 36.6; O2SAT 100
--- NOTE | 2024-09-16 14:02 | ED_ITS ---
HPI - General Adult General Chief complaint: Unspecified Stated complaint: nausea / Stomach Pain Source: patient and RN notes reviewed Mode of arrival: ambulatory Limitations: no limitations History of Present Illness HPI narrative: 69-year-old female presents Express Care complaining of adverse reaction to medication. Patient was seen approximately 4 days ago for wound infection after she had a biopsy performed on her left forearm. She was started on clindamycin since then she states she has been having diarrhea and a burning sensation in her chest that is substernal and nonradiating. Patient also reports feeling a sensation of fullness. Patient states she feels like she has to burp all the time. Patient states the burning sensation occurs in her lower chest right after she takes the dose to clindamycin. Patient states she will take a Tums and in the brain sensation will immediately subsided. Patient denies any nausea, vomiting, chest pressure, chest pain with exertion, shortness of breath, left arm pain, jaw pain, or any other symptoms. Patient would like a new antibiotic because she cannot tolerate the clindamycin. Patient denies any significant cardiac history. Related Data Home Medications ?Medication ?Instructions ?Recorded ?Confirmed ?Last Taken ?Type octreotide acetate 50 mcg/mL 50 mcg subcut .[id number] 04/26/21 08/26/24 Unknown History injection solution everolimus (antineoplastic) 7.5 mg 7.5 mg PO DAILY 06/28/22 08/26/24 Unknown History tablet aspirin 81 mg tablet,delayed 81 mg PO DAILY 12/12/22 08/26/24 Unknown History release iron 150 mg-C 60 mg-B12 25 1 cap PO DAILY 12/12/22 08/26/24 Unknown History mcg-folic acid 1 tf-myenzys-dh.acid capsule (Ferrex) levothyroxine 50 mcg tablet 25 mcg PO DAILY 11/19/23 08/26/24 Unknown History (Synthroid) Allergies Allergy/AdvReac Type Severity Reaction Status Date / Time amoxicillin Allergy Unknown Rash Verified 09/16/24 13:40 minocycline Allergy Unknown Pain Verified 09/16/24 13:40 spironolactone Allergy Unknown Pain Verified 09/16/24 13:40 Review of Systems Review of Systems: CONSTITUTIONAL: Denies fever, chills, or sweats. EYES: Denies visual changes, redness, or discharge. ENT: Denies rhinorrhea, congestion, sore throat, or otalgia. CARDIOVASCULAR: Positive for chest burning. Negative for chest pain with exertion, chest pressure, left arm pain, left jaw pain, dizziness, lighthead edness, loss of consciousness, palpitations, or edema. RESPIRATORY: Denies cough or dyspnea. GASTROINTESTINAL: Denies abdominal pain, nausea, vomiting,. Positive for diarrhea and heartburn. GENITOURINARY: Denies dysuria or hematuria. SKIN: Denies rash or itching. MUSCULOSKELETAL: Denies back pain, joint pain, or myalgia. NEUROLOGIC: Denies headache, numbness, or weakness. PSYCHIATRIC: Denies anxiety or depression. All other systems reviewed are negative, except as documented in HPI. [facility] Past Medical History Medical History Metastatic malignant neuroendocrine tumor to liver Insomnia Restless leg syndrome Essential tremor Coronary artery disease (CAD) excluded Mitral valve regurgitation COVID-19 Hip pain Neuroendocrine cancer Disorder Post-menopausal Hypertension Post-menopausal Hypertension Neuroendocrine cancer Surgical History Surgical History Hx of LASIK Hx of LASIK Family History Family History Grandparent Family history of Alzheimer's disease, Onset Age: 86 Sibling Family history of malignant neoplasm of thyroid Father Heart failure Mother Heart failure Endocrine disorder Grandparent Alzheimer disease Kidney failure Sibling Thyroid cancer Cancer Other Family history of arthritis Family history of kidney disease Family history of mental disorder Family history of thyroid disease Hypertension Social History Social History Social History: Caffeine-1 cup daily Smoking packs per day: 1 Smoking cigarettes per day: 20.0 Years smoked: 33 Smoking pack-years: 33.00 Smoking status: Former smoker Tobacco type: cigarettes Smoking end date: 03/26/04 Alcohol intake: current Drinks per week: 5 Alcohol use details: rarely Substance use: never Substance use type: does not use Do You Feel Safe in your Home?: Yes Lack of Transportation: No Lack of Food: Never True Current Housing: I Have Housing Concerned About Future Housing: No Difficulty Paying Gas/Electric Bills: No Difficulty Paying for Meds: No Currently Unemployed: No Education: Bachelor's Degree Difficulty w/ Childcare or Family Care: No Living arrangements: with family Spiritual care concerns: No Comments At the time of my signature, I reviewed and agree with the nursing past medical, surgical, social, and family history. There is no relevant family history pertinent to the patient complaint. Exam Narrative: GENERAL: This is a well-nourished, well-developed adult, in no apparent distress. They are non ill-appearing, nontoxic appearing. HEAD: normocephalic, atraumatic. EYES: Sclera clear/white. Conjunctiva normal. Vision is grossly intact. Extraocular movements intact EARS: External ears normal, Hearing grossly intact. NOSE: External nose normal THROAT: Mucous membranes moist, NECK: Neck supple, CARDIOVASCULAR: Regular rate and rhythm without murmurs, gallops, or rubs. RESPIRATORY: Clear to auscultation. Breath sounds equal bilaterally. No wheezes, rales, or rhonchi. GASTROINTESTINAL: Abdomen soft, non-tender, nondistended. Bowel sounds are active. No hepato-splenomegaly, or palpable masses. No guarding. SKIN: Left arm: Puncture/biopsy site on left forearm with surrounding erythema, and mild tenderness to palpation. No exudate, no induration or fluctuance. NEURO: awake, alert, and oriented to person, place and time. There were no obvious focal neurologic abnormalities. EXTREMITIES: No joint tenderness, effusion, or edema noted. Course Course Emergency Course: Portions of this record may have been created with voice recognition software Level of Care: Express Care Visit Vital Signs Vital signs: Vital Signs Temperature 97.9 F 09/16/24 13:35 Pulse Rate 86 09/16/24 13:35 Respiratory Rate 16 09/16/24 13:35 Blood Pressure 143/75 H 09/16/24 13:35 Pulse Oximetry 100 09/16/24 13:35 Oxygen Delivery Room Air 09/16/24 13:35 Temperature 97.9 F 09/16/24 13:35 Pulse Rate 86 09/16/24 13:35 Respiratory Rate 16 09/16/24 13:35 Blood Pressure 143/75 H 09/16/24 13:35 Pulse Oximetry 100 09/16/24 13:35 Oxygen Delivery Room Air 09/16/24 13:35 Reviewed Medical Decision Making MDM Narrative Medical decision making narrative: EKG without ischemic findings, appears unchanged from previous EKG tracings. Patient's pain is consistent with heartburn or acid reflux related to clindamycin. Chest pain completely resolved after use of Tums. [place] heart score of 2. Low suspicion for ACS. Patient appropriate follow-up for outpatient cardiology. Left patient stop clindamycin, start cefuroxime is it appears there still surrounding erythema. Patient has allergy to penicillins was tolerated cephalosporins in the past. Will also start patient on Pepcid. Advised patient to follow-up with a specialist who performed a biopsy. Discussed physical exam findings. Advised supportive measures and signs/symptoms to go to the ER. Pt is appropriate for outpt treatment and f/u. Differential Diagnosis Differential Diagnosis: Acute coronary syndrome, acid reflux, cellulitis, gastritis, adverse reaction to medication Vital Signs Vital Signs: Vital Signs Temperature 97.9 F 09/16/24 13:35 Pulse Rate 86 09/16/24 13:35 Respiratory Rate 16 09/16/24 13:35 Blood Pressure 143/75 H 09/16/24 13:35 Pulse Oximetry 100 09/16/24 13:35 Oxygen Delivery Room Air 09/16/24 13:35 Temperature 97.9 F 09/16/24 13:35 Pulse Rate 86 09/16/24 13:35 Respiratory Rate 16 09/16/24 13:35 Blood Pressure 143/75 H 09/16/24 13:35 Pulse Oximetry 100 09/16/24 13:35 Oxygen Delivery Room Air 09/16/24 13:35 ECG Data EKG #1: Attestation: I personally reviewed and interpreted this ECG as follows: ECG completion date: 09/16/24 ECG completion time: 13:49 Prior ECG tracings: available for review EKG Interpretation: normal rate, sinus rhythm, no ectopy, no ST changes, normal QRS, other (Nonspecific T-wave abnormalities unchanged from previous ECG tracing) and no acute changes Critical Care Time Critical Care Time Critical Care Time: No Discharge Plan Discharge Clinical Impression: Adverse effect of antibiotic, Encounter for wound re-check Acid reflux Qualifiers: Esophagitis presence: esophagitis presence not specified Qualified Code(s): K21.9 - Gastro-esophageal reflux disease without esophagitis Patient Disposition: Home Condition: Stable Instructions: GERD (Gastroesophageal Reflux Disease) (ED) Additional Instructions: Your EKG is unchanged. Likely clindamycin is causing your acid reflux symptoms. Please stop taking clindamycin start taking cefuroxime as directed. Take Pepcid 20 mg twice a day for the next 2-4 weeks. You may also take Tums as needed for InStent relief of heartburn symptoms. Please follow-up with the specialist who performed a biopsy for further evaluation management of your biopsy wound. Please go to the ER if you develop chest pressure, chest pain with exertion, shortness of breath, jaw pain, nausea, blood in your stool, left arm pain, or any worsening signs of infection to the wounds such as increased redness, swelling, drainage, fevers, or any other concerns. Patient Language: Syriac Prescriptions: New cefuroxime axetil 500 mg tablet 500 mg PO BID 5 Days Qty: 10 0RF famotidine 20 mg tablet 20 mg PO BID 14 Days Qty: 28 0RF No Action mupirocin [Centany] 2 % ointment 1 applic topical BID 7 Days Qty: 22 0RF clindamycin HCl [Cleocin HCl] 300 mg capsule 300 mg PO Q8H 7 Days Qty: 21 0RF aspirin 81 mg tablet,delayed release (DR/EC) 81 mg PO DAILY Ferrex 150 Forte Plus 150-60-25-1 bw-va-fle-mg capsule 1 cap PO DAILY everolimus (antineoplastic) 7.5 mg tablet 7.5 mg PO DAILY levothyroxine [Synthroid] 50 mcg tablet 25 mcg PO DAILY octreotide acetate 50 mcg/mL solution 50 mcg subcut .Q66murb gabapentin 100 mg capsule See Rx Instructions .ROUTE .COMPLEX Qty: 90 3RF Dose Instruction: TAKE 1 TO 3 CAPSULES BY MOUTH EVERY NIGHT AT BEDTIME NEEDED FOR RESTLESS LEG SYNDROME Rx Instructions: TAKE 1 TO 3 CAPSULES BY MOUTH EVERY NIGHT AT BEDTIME NEEDED FOR RESTLESS LEG SYNDROME potassium chloride 10 mEq capsule, extended release 10 meq PO DAILY Qty: 90 0RF Follow-up/Referrals: Deandre Mayberry DO [Primary Care Provider] - Time of Disposition: 14:10
== END 2024-09-16 14:16 | disposition home or self-care (01) ==
PROVIDERS: PCP Internal Medicine
DX: K21.9 Gastro-esophageal reflux disease without esophagitis (principal); R19.7 Diarrhea, unspecified; T36.8X5A Adverse effect of other systemic antibiotics, initial encounter; Z48.01 Encounter for change or removal of surgical wound dressing; Z87.891 Personal history of nicotine dependence; I25.10 Atherosclerotic heart disease of native coronary artery without angina pectoris; I34.0 Nonrheumatic mitral (valve) insufficiency; I10 Essential (primary) hypertension; Z85.05 Personal history of malignant neoplasm of liver; Z85.89 Personal history of malignant neoplasm of other organs and systems; Z79.82 Long term (current) use of aspirin
CPT/HCPCS: 99213; G0463

== ENCOUNTER 2024-10-01 10:11 | Outpatient (CLI) | payer MEDICARE, BC, OTHER, SELFPAY ==
--- OUTSIDE RECORDS SUMMARY | 2024-10-01 10:20 | XMS_ITS | Clinical Summary ---
Author Organization [facility] Address [address] [place] [id number] Care Team Providers Care Ground Operations Supervisor Name Role Phone Unavailable Primary Care Provider Unavailabl e Social History Tobacco Use Types Packs/Day Years Used Date Smoking Tobacco: Never Assessed Comments Unknown Sex and Gender Information Value Date Recorded Sex Assigned at Not on file Legal Sex Female 8:27 PM CDT Gender Identity Not on file Sexual Orientation Not on file Last Filed Vital Signs Vital Sign Reading Time Taken Comments Blood Pressure 128/72 07/04/2017 3:43 PM CDT Pulse 66 07/04/2017 3:43 PM CDT Temperature - - Respiratory Rate - - Oxygen Saturation - - Inhaled Oxygen Concentration - - Weight 60.3 kg (133 lb) 07/04/2017 3:43 PM CDT Height 170.2 cm (5' 7) 07/04/2017 3:43 PM CDT Body Mass Index 20.83 07/04/2017 3:43 PM CDT Plan of Treatment Health Maintenance Due Date Last Done Comments Colorectal Cancer Screening Colonoscopy (10 Years) 1956 Hepatitis C 1974 DTaP, Tdap and Td Vaccines ( 1 - Tdap) 05/28/1975 Mammogram Screening 1996 Pneumococcal Vaccine: 50+ Ye ars (1 of 1 - PCV) 2006 Zoster Vaccines (1 of 2) 2006 Dexa Scan (General) 2021 COVID-19 Vaccine ( - 2023-2 5 season) 2023 RSV Immunization or 60+ Years (1 - 1-dose 75+ series) 05/28/2031 Meningococcal B Vaccine Aged Out No l onger eligible based on patient's age to complete this topic Meningococcal Vaccine Aged Out No ria casper eligible based on patient's age to complete this topic RSV Immunizations Under 20 Months Aged Out No longer eligible based on patient's age to complete this topic
--- OUTSIDE RECORDS SUMMARY | 2024-10-01 10:20 | XMS_ITS | Encounter Summary ---
Author Organization [facility] Address [address] [place] [address] Care Team Providers Care Barn And Property Manager Name Role Phone Unavailable Primary Care Provider Unavailabl e Encounter Details Date Type Department Care Team (Latest Contact Info) Description 01/29/2018 Abstract [facility] , Generic Conversion, Social History Tobacco Use Types Packs/Day Years [...]
--- OUTSIDE RECORDS SUMMARY | 2024-10-01 10:20 | XMS_ITS | Encounter Summary ---
Author Organization [facility] Healthcare Address [address] [place] [address] Care Team Providers Care Javascript Ui Developer Name Role Phone Noah Mckee MD Unavailable Rick Redmond MD Unavailable [phone] Deandre Mayberry DO Primary Care Provider [phone] Noah Mckee MD Unavailable Ailin Rodríguez MD Unavailable Fantasma Poole Chi, MD Unavailable Mandy Lee DO Unavailable [phone] Encounter Details Date Type Department Care Team (Late st Contact Info) Description 09/15/2019 Telephone [facility] [address] [place] [address] Kortney Mayes, RT Social History Tobacco Use Types Packs/Day Years Used Date Smoking Tobacco: Former Cigarettes Smokeless Tobacco: Never Alcohol Use Standard Drinks/Week Comments Yes 0 (1 standard drink = 0.6 oz pur e alcohol) Comments No Sex and Gender Information Value Date Recorded Sex Assigned at Not on file Legal Sex Female 3:08 AM PHARMACEUTICAL ASSISTANT Gender Identity Not on file Sexual Orientation Not on file documented as of this encounter Plan of Treatment Not on file documented as of this encounter Visit Diagnoses Not on filedocumented in this encounter Additional Health Concerns Infection Onset Date Last Indicated Resolved Time COVID: Suspected 09/08/2020 09/08/2020 09/08/2020 8:44 PM CDT documented as of this encounter Care Teams Javascript Ui Developer Relationship Specialty Start Date End Date Deandre Mayberry DO [address] [place] [address] PCP - General 09/18/18 Noah Mckee MD [address] [facility] [address] [place] [address] Medical Oncologist/Hematologis t Medical Oncology 09/19/17 Rick Redmond MD [address] [place] [id number] Referring Physician Hematology 09/19/17 Noah Mckee MD [address] [place] [address] Medical Oncologist/Hematologis t Medical Oncology 02/10/19 Ailin Rodríguez MD [address] [facility] [address] [place] [address] Consulting Physician Radiation Oncology 10/14/19 Fantasma Poole Chi, MD [address] [facility] [address] [place] [address] Pulmonary Disease 10/27/20 Mandy Lee DO [address] [facility] [address] [place] [address] Consulting Physician Endocrinology Diabetes & Metabolism 01/07/21 documented as of this encounter
--- OUTSIDE RECORDS SUMMARY | 2024-10-01 10:20 | XMS_ITS | Clinical Summary ---
Author Organization [facility] Address [address] [place] [address] Care Team Providers Care Multimedia Designer Name Role Phone Eric Vu MD Primary [...] on file Legal Sex Female 11:34 AM ENERGY CONSERVATION REPRESENTATIVE Gender Identity Not on file Sexual Orientation Not on file Last Filed Vital Signs Vital Sign Reading Time Taken Comments Blood Pressure 129/83 04/26/2017 2:05 PM ENERGY CONSERVATION REPRESENTATIVE Pulse 81 04/26/2017 2:05 PM ENERGY CONSERVATION REPRESENTATIVE Temperature 36.4 C (97.6 F) 04/26/2017 2:05 PM ENERGY CONSERVATION REPRESENTATIVE Respiratory Rate 16 04/20/2017 11:24 AM ENERGY CONSERVATION REPRESENTATIVE Oxygen Saturation - - Inhaled Oxygen Concentration - - Weight 59.1 kg (130 lb 3.2 oz) 04/26/2017 2:05 P M ENERGY CONSERVATION REPRESENTATIVE Height 170.2 cm (5' 7) 04/26/2017 2:05 PM ENERGY CONSERVATION REPRESENTATIVE Body Mass Index 20.39 04/26/2017 2:05 PM ENERGY CONSERVATION REPRESENTATIVE Plan of Treatment Health Maintenance Due [...] 2016 OSTEOPOROSIS SCREENING 2021 INFLUENZA VACCINE (#1) 2024 01/12/2020, 2018 ZOSTER VACCINE Completed 07/12/2018, 03/20/2018 Insurance [facility] Care Teams Multimedia Designer Relationship Specialty Start Date End Date Eric Vu MD PCP - General Internal Medicine 04/20/17
--- OUTSIDE RECORDS SUMMARY | 2024-10-01 10:20 | XMS_ITS | Encounter Summary ---
Author Organization [facility] Address [address] [place] [address] Phone Care Team Providers Care Plant Production Worker Name Role Phone Noah Mckee MD Unavailable [phone] Rick Redmond MD Unavailable [phone] Deandre Mayberry DO Primary Care Provider [phone] Noah Mckee MD Unavailable [phone] Ailin Rodríguez MD Unavailable Fantasma Poole Chi, MD Unavailable Mandy Lee DO Unavailable [phone] Encounter Details Date Type Department Care Team [...] on file Legal Sex Female 3:08 AM PAROLE SUPERVISOR Gender Identity Not on file Sexual Orientation [...] on filedocumented in this encounter Care Teams Plant Production Worker Relationship Specialty Start Date End Date Deandre Mayberry DO [address] [place] [address] PCP - General 09/18/18 Noah Mckee MD [address] [place], [place] [id number] Medical Oncologist/Hematologis t Medical Oncology 09/19/17 Rick Redmond MD [address] [place] [address] Referring Physician Hematology 09/19/17 Noah Mckee MD [address] [place] [address] Medical Oncologist/Hematologis t Medical Oncology 02/10/19 Ailin Rodríguez MD [address] [place] [address] Consulting Physician Radiation Oncology 10/14/19 Fantasma Poole Chi, MD [address] [place] [address] Pulmonary Disease 10/27/20 Mandy Lee DO [address] [facility] [address] [place] [address] Consulting Physician Endocrinology Diabetes & Metabolism 01/07/21 documented as of this encounter
--- OUTSIDE RECORDS SUMMARY | 2024-10-01 10:20 | XMS_ITS | Encounter Summary ---
Author Organization [facility] Healthcare Address [address] [place] [address] Care Team Providers Care Bobbin Fixer Name Role Phone Eric Vu MD Primary Care Provider + Noah Mckee MD Unavailable Rick Redmond MD Unavailable [phone] Deandre Mayberry DO Primary Care Provider [phone] Noah Mckee MD Unavailable Ailin Rodríguez MD Unavailable Fantasma Poole Chi, MD Unavailable Mandy Lee DO Unavailable Encounter Details Date Type Department Care Team (Late st Contact Info) Description 05/01/2017 [facility] [address] [place] [address] Noah Mckee MD [address] [facility] [address] [place] [address] Social History Tobacco Use Types Packs/Day Years Used Date Smoking Tobacco: Former Smokeless Tobacco: Never Alcohol Use Standard Drinks/Week Comments Yes 0 (1 standard drink = 0.6 oz pur e alcohol) Comments Unknown Sex and Gender Information Value Date Recorded Sex Assigned at Not on file Legal Sex Female 3:08 AM PERMACULTURE CONTRACTOR Gender Identity Not on file Sexual Orientation Not on file documented as of this encounter Plan of Treatment Not on file documented as of this encounter Visit Diagnoses Not on filedocumented in this encounter Additional Health Concerns Infection Onset Date Last Indicated Resolved Time COVID: Suspected 09/08/2020 09/08/2020 09/08/2020 8:44 PM CDT documented as of this encounter Care Teams Bobbin Fixer Relationship Specialty Start Date End Date Eric Vu MD PCP - General 04/11/17 09/17/18 Deandre Mayberry DO [address] [place] [address] PCP - General 09/18/18 Noah Mckee MD [address] [place], [place] [id number] Medical Oncologist/Hematologis t Medical Oncology 09/19/17 Rick Redmond MD [address] [place] [address] Referring Physician Hematology 09/19/17 Noah Mckee MD [address] [place] [address] Medical Oncologist/Hematologis t Medical Oncology 02/10/19 Ailin Rodríguez MD [address] [place] [address] Consulting Physician Radiation Oncology 10/14/19 Fantasma Poole Chi, MD [address] [place] [address] Pulmonary Disease 10/27/20 Mandy Lee DO [address] [facility] [address] [place] [address] Consulting Physician Endocrinology Diabetes & Metabolism 01/07/21 documented as of this encounter
--- OUTSIDE RECORDS SUMMARY | 2024-10-01 10:21 | XMS_ITS | Referral Summary ---
Author Organization [facility] [address] Address [address] [place] [address] Care Team Providers Care Ambulance Assistant Name Role Phone Noah Mckee MD Unavailable Rick Redmond MD Unavailable [phone] Deandre Mayberry DO Primary Care Provider [phone] Noah Mckee MD Unavailable Ailin Rodríguez MD Unavailable Fantasma Poole Chi, MD Unavailable Mandy Lee DO Unavailable Encounters Date Type Department Care Team Description 09/08/2024 Telephone [facility] Oncology [address] [place] [phone] Noah Mckee MD 09/08/2024 Orders Only [facility] Oncology [address] [place] [address] [phone] Noah Mckee MD 09/08/2024 11:15 AM CDT Formerly [facility] [address] [place] [address] [phone] Malignant neuroendocrine neoplasm (HCC) (Primary Dx) 09/02/2024 Orders Only [facility] Oncology [address] [facility] [place] Floor [address] [place] [phone] Noah Mckee MD 08/27/2024 Documentation [facility] [address] [facility] Floor [address] [place] [address] Pamela Larson RMA PRIOR AUTH/PAP- EVEROLIMUS 08/26/2024 Orders Only [facility] Oncology [address] 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 [place] Floor [address] [place] [address] Noah Mckee MD 08/11/2024 9:15 AM CDT Infusion [facility] [address] [place] [address] Malignant neuroendocrine neoplasm (HCC) (Primary Dx) 07/14/2024 9:15 AM CDT Infusion [facility] [address] [place] [address] Malignant neuroendocrine neoplasm (HCC) (Primary Dx) 07/10/2024 Results Follow-Up [facility] Endocrinology Metabolism and Lipid [address] [place] [phone] Mandy Lee DO Albumin Creatinine Ratio, Urine, Hemoglobin A1c, Vitamin D 25 hydroxy, Additional followed-up results: 2 07/05/2024 Results Follow-Up [facility] Infusion Therapy [address] [place] [address] Mandy Lee DO XR Spine Cervical 2 or 3 Views from Last 3 Months Allergies Active Allergy Reactions Criticality Noted Date Comments Amoxicillin Rash Medium 04/30/2017 Minocycline Other (See comments) Low 04/26/2017 When given with Spironolactone patient has severe pain and high blood pressure. Spironolactone Other (See comments) Low 06/07/2009 When given with Minocin patient has severe pain and high blood pressure. hypertension Medications vit D3-vit Q-xhjnamtcc-enyp [id number] hpqb-eaw-mp-mg tablet Take by mouth Active multivitamin tabletIndication s:Vitamin Deficiency Prevention Take 1 tablet by mouth Active vitamin B complex with vitamin C tabletIndication s:Vitamin Deficiency Prevention Take 0.5 tablets by mouth daily Active OCTREOTIDE ACETATE INJ Inject as directed Active rosuvastatin (CRESTOR) 40 mg tablet Take 1 tablet (40 mg total) by mouth nightly 30 tablet 4 Active aspirin 81 mg enteric coated tablet TAKE 1 TABLET BY MOUTH DAILY 90 tablet 3 4 Active amLODIPine (NORVASC) 10 mg tablet TAKE 1 TABLET(10 MG) BY MOUTH DAILY 30 tablet 11 4 Active Additional Information Patient taking differently: 5 mgoral Daily, Reported on 07/01/2024 gabapentin (NEURONTIN) 100 mg capsule 4 Active propranoloL (INDERAL) 20 mg tablet 4 Active iron aspgly,ps-C-B12- FA-Ca-suc (Ferrex 150 Forte Plus) 150-60-25-1 tw-vr-qwi-mg capsuleIndicatio ns:Iron deficiency anemia, unspecified iron deficiency anemia type Take 1 tablet by mouth daily 30 capsule 3 5 Active magnesium gluconate 200 mg tabletIndication s:hypomagnesemia Take 1 tablet (200 mg total) by mouth 2 (two) times a day Active Synthroid 50 mcg tablet Take 1 tablet (50 mcg total) by mouth daily 30 tablet 07/24/19 26 Active everolimus (AFINITOR) 7.5 mg tabletIndication s: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 Do not take any tablet that is broken or crushed. 30 tablet 08/22/19 26 Active Hospital, Clinic, or Other Facility [...] 04/03/2024 Assessment & Plan (04/03/2024 1:17 PM PRODUCT DIRECTOR): Stable continue Crestor Bilateral carotid artery stenosis 10/05/2023 Assessment & Plan (04/03/2024 1:17 PM PRODUCT DIRECTOR): Stable bilateral moderate asymptomatic ICA stenosis. Continue [...] 10/05/2023 Assessment & Plan (04/03/2024 1:17 PM PRODUCT DIRECTOR): Stable continue amlodipine Assessment & Plan (10/05/2023 [...] on file Legal Sex Female 3:08 AM PRODUCT DIRECTOR Gender Identity Not on file Sexual Orientation Not on file Last Filed Vital Signs Vital Sign Reading Time Taken Comments Blood Pressure 131/80 09/08/2024 11:53 AM CDT Pulse 69 09/08/2024 11:53 AM CDT Temperature 36.3 C (97.3 F) 09/08/2024 11:53 AM CDT Respiratory Rate 16 09/08/2024 11:53 AM CDT Oxygen Saturation 99% 09/08/2024 11:53 AM CDT Inhaled Oxygen Concentration - - Weight 54.4 kg (120 lb) 09/08/2024 11:53 AM CDT Height 167.6 cm (5' 6) 07/01/2024 9:27 AM CDT Body Mass Index 19.37 07/01/2024 9:27 AM CDT Plan of Treatment Not on file Procedures Procedure Name Priority Date/Time Associated Diagnosis Comments FIT OCCULT BLOOD, FECAL Routine 06/15/2022 9:30 AM CDT HEPATITIS PANEL, ACUTE Routine 02/10/2019 9:30 AM PRODUCT DIRECTOR Exposure to hepatitis from Last 3 Months or Most Recently Relevant to Health Maintenance Results * FIT occult blood, fecal (06/15/2022 9:30 AM CDT) Occult blood, fecal Negative Negative [facility] - 01 06/15/2022 9:30 AM CDT 06/15/2022 Comment:[facility] - 06/16/2022 4:11 PM CDT Performed at: [address] [place] [id number] Mix House Tender: Abiel Cruz PhD, Phone: [phone] us Noah Mckee MD LAB BODY FLUIDS AND STOOL S ORDERABLES Final Result [facility] - 01 * Hepatitis panel, acute (02/10/2019 9:30 AM PRODUCT DIRECTOR) Hep A IgM Negative Negative [facility] Hep B core IgM Negative Negative [facility] Hep C Ab Negative Negative [facility] HepBsAg Nonreactive Nonreactive [facility] Blood specimen (specimen) 02/10/2019 9:30 AM PRODUCT DIRECTOR 02/10/2019 10:33 AM PRODUCT DIRECTOR us Noah Mckee MD LAB MICROBIOLOGY - GENERA L ORDERABLES Final Result [facility] [id number] [address] Department of Laboratories [place] [id number] from Last 3 Months or Most Recently Relevant to Health Maintenance Insurance [facility] MEDICARE FOR LIFE MEDICARE FOR LIFE BCBS FEDERAL [facility]IC[facility] FEDERAL Care Teams Ambulance Assistant Relationship Specialty Start Date End Date Deandre Mayberry DO [address] [place] [address] PCP - General 09/18/18 Noah Mckee MD [address] [place] [address] Medical Oncologist/Hematologis t Medical Oncology 09/19/17 Rick Redmond MD [address] [place] [address] Referring Physician Hematology 09/19/17 Noah Mckee MD [address] [place] [address] Medical Oncologist/Hematologis t Medical Oncology 02/10/19 Ailin Rodríguez MD [address] [place] [address] Consulting Physician Radiation Oncology 10/14/19 Fantasma Poole Chi, MD [address] [place] [address] Pulmonary Disease 10/27/20 Mandy Lee DO [address] [facility] [address] [place] [address] Consulting Physician Endocrinology Diabetes & Metabolism 01/07/21
--- OUTSIDE RECORDS SUMMARY | 2024-10-01 10:21 | XMS_ITS | Clinical Summary ---
Author Organization [facility] Address [address] [place] [address] Care Team Providers Care Zookeeper Name Role Phone Eric Vu MD Primary Care Provider [phone] Source Comments [facility],non-owned Affiliates and Associated Physician Practices is amultiple site organization consisting of ambulatory clinics and hospital sitesin [place], [place], [place] and [place]. This disclosure is being madepursuant to the Care Everywhere program and may not contain all information available regarding this patient. Last updated 17.[facility] Responsible [place] Social History Tobacco Use Types Packs/Day Years Used Date Smoking Tobacco: Never Assessed Comments Unknown Sex and Gender Information Value Date Recorded Sex Assigned at Not on file Legal Sex Female 5:50 PM RECORD KEEPER Gender Identity Not on file Sexual Orientation [...] patient's age to complete this topic Insurance [facility] Care Teams Zookeeper Relationship Specialty Start Date End Date Eric Vu MD [address] [place] [phone] PCP - General 04/18/17
--- OUTSIDE RECORDS SUMMARY | 2024-10-01 10:21 | XMS_ITS | Encounter Summary ---
Author Organization [facility] Address [address] [place] [address] Care Team Providers Care Radial Saw Operator Name Role Phone Eric Vu MD Primary Care Provider [phone] Encounter Details Date Type Department Care Team (Late st Contact Info) Description 04/25/2018 Lab Requisition [facility] Care D[facility] Lab [address] [place] [address] Kendall [place] [address] Social History Tobacco Use Types Packs/Day Years Used Date Smoking Tobacco: Never Assessed Comments Unknown Sex and Gender Information Value Date Recorded Sex Assigned at Not on file Legal Sex Female 5:50 PM EFFERVESCENT SALTS COMPOUNDER Gender Identity Not on file Sexual Orientation Not on file documented as of this encounter Plan of Treatment Not on file documented as of this encounter Procedures Procedure Name Priority Date/Time Associated Diagnosis Comments IMMUNOFLUORESCENT STUDY DERM Routine 04/24/2018 12:00 AM EFFERVESCENT SALTS COMPOUNDER documented in this encounter Results * IMMUNOFLUORESCENT STUDY DERM (04/24/2018 12:00 AM EFFERVESCENT SALTS COMPOUNDER) Case Report Dermatopathol ogy Report Case: [id number] Authorizing Provider: Kendall Hinton MD Collected: 04/24/2018 12:00 AM Pathologist: Loretta Zhang MD Received: 04/25/2018 01:59 PM Specimen: Skin, left proximal forearm 9 6:02 PM EFFERVESCENT SALTS COMPOUNDER DERMATOPATHOLOGY LABORATORY Final Diagnosis Specimen A. SKIN, left proximal forearm: COLLOID BODIES (L98.9) (see microscopic description and comment) (see fixed tissue results, [id number]) 9 6:02 PM EFFERVESCENT SALTS COMPOUNDER DERMATOPATHOLOGY LABORATORY at [address] EFFERVESCENT SALTS COMPOUNDER Direct Immunofluorescence Report - Specimen A Specimen A IgA IgM IgG C3 CollV Fibrinogen Epidermis Negative Negative Negative Negative Negative Negative Basement Membrane Negative Negative Negative Negative 2+ Negative Vessels Negative Negative Negative Negative 2+ Negative Interstitium Colloid bodies Colloid bodies Colloid bodies Negative Negative Non specific 9 6:02 PM EFFERVESCENT SALTS COMPOUNDER DERMATOPATHOLOGY LABORATORY Clinical History R/O blister disorder, hand foot and mouth disease. 9 6:02 PM [facility] DERMATOPATHOLOGY LABORATORY Gross Description Specimen A: Received is one Benedicto's media filled container labeled with the patient's name and designated left proximal forearm. The specimen consists of a punch biopsy measuring [id number]. The specimen is submitted in whole for direct immunofluores cence testing. 9 6:02 PM [facility] DERMATOPATHOLOGY LABORATORY Microscopic Description Specimen A. SKIN, [...] chronic irritation / rubbing. 9 6:02 PM [facility] DERMATOPATHOLOGY LABORATORY Disclaimer An external and internal positive and negative controls are appropriate for the histochemical , immunohistoch emical and immunofluores cence stain(s) in this case (if any), except where stated explicitly. The performance characteristi cs of the stain(s) cited in this report were developed and its performance characteristi c determined by the Dermatopathol ogy Laboratory at [facility], directed by Dr. Mary Whitlock. These tests need not be, and therefore are not, approved by the [place] Food and Drug Administratio n. The tests are used for clinical purposes. Billing Codes Specimen Charges Stain Charges 62537 71066 93714 20367 73851 33012 1 1 1 1 1 1 9 6:02 PM [facility] DERMATOPATHOLOGY LABORATORY Embedded Images 9 6:02 PM [facility] DERMATOPATHOLOGY LABORATORY Pathology/Cytolog y TISSUE SPECIMEN FROM SKIN / Unknown 04/24/2018 04/25/2018 1:59 PM EFFERVESCENT SALTS COMPOUNDER Kendall Hinton MD LAB - PATHOLOGY/CYTOLOGY ORD ERABLES Final Result DERMATOPATHOLOGY LABORATORY [facility] - Department of Dermatology [address] [place] [address], 5th Floor Lab [address] [phone] documented in this encounter Visit Diagnoses Not on filedocumented in this encounter Care Teams Radial Saw Operator Relationship Specialty Start Date End Date Eric Vu MD [address] [place] [address] PCP - General 04/18/17 documented as of this encounter
--- OUTSIDE RECORDS SUMMARY | 2024-10-01 10:21 | XMS_ITS | Encounter Summary ---
Author Organization [facility] Address [address] [facility] [place] [address] Care Team Providers Care Legal Executive Assistant Name Role Phone Eric Vu MD Primary Care Provider [phone] Encounter Details Date Type Department Care Team (Late st Contact Info) Description 03/09/2021 Lab Requisition [facility] DermPath Lab [address] [place] [address] Kendall Hinton MD [address] [place] [address] Social History Tobacco Use Types Packs/Day Years Used Date Smoking Tobacco: Never Assessed Comments Unknown Sex and Gender Information Value Date Recorded Sex Assigned at Not on file Legal Sex Female 5:50 PM FILTER CLEANER Gender Identity Not on file Sexual Orientation Not on file documented as of this encounter Plan of Treatment Not on file documented as of this encounter Procedures Procedure Name Priority Date/Time Associated Diagnosis Comments DERMATOPATHOLOGY Routine 03/08/2021 12:0 0 AM FILTER CLEANER documented in this encounter Results * DERMATOPATHOLOGY (03/08/2021 12:00 AM FILTER CLEANER) Case Report Dermatopathology Report Case: [id number] Authorizing Provider: Kendall Hinton MD Collected: 03/08/2021 12:00 AM Ordering Location: [facility] D[facility] Lab Received: 03/09/2021 12:43 PM Pathologist: Mandy Noguera MD Specimen: Skin, scalp vertex 4:27 PM FILTER CLEANER DERMATOPATHOLOGY LABORATORY Final Diagnosis Specimen A. SKIN, scalp vertex: FIBROSING GRANULATION TISSUE WITH OVERLYING IMPETIGINIZED AND INFLAMED SERUM SCALE CRUST (L90.5) DERMAL SCAR (see microscopic description and comment) 1 4:27 PM [facility] DERMATOPATHOLOGY LABORATORY at [address] FILTER CLEANER Clinical History R/o SCC,BCC,erosive pustulosis vs HAK vs side effect everlimus 1 4:27 PM [facility] DERMATOPATHOLOGY LABORATORY Gross Description Specimen A: Received is one formalin filled container labeled with the patient's name and designated scalp vertex. The specimen consists of a shave biopsy measuring 8x6x2 mm. Jar 0. 1 4:27 PM [facility] DERMATOPATHOLOGY LABORATORY Microscopic Description Specimen [...] the correct clinical setting. 1 4:27 PM [facility] DERMATOPATHOLOGY LABORATORY Disclaimer An external and internal positive and negative controls are appropriate for the histochemical, immunohistochemical and immunofluorescence stain(s) in this case (if any), except where stated explicitly. The performance characteristics of the stain(s) cited in this report were developed and its performance characteristic determined by the Dermatopathology Laboratory at [facility], directed by Dr. Mary Whitlock. These tests need not be, and therefore are not, approved by the [place] Food and Drug Administration. The tests are used for clinical purposes. Billing Codes Specimen Charges Stain Charges 08201 1 70522 60721 1 1 1 4:27 PM [facility] DERMATOPATHOLOGY LABORATORY Embedded Images 1 4:27 PM [facility] DERMATOPATHOLOGY LABORATORY Pathology/Cytolog y TISSUE SPECIMEN FROM SKIN / Unknown 03/08/2021 03/09/2021 12:43 PM FILTER CLEANER Kendall Hinton MD LAB - PATHOLOGY/CYTOLOGY ORD ERABLES Final Result DERMATOPATHOLOGY LABORATORY [facility] - Department of Dermatology [address] [phone] documented in this encounter Visit Diagnoses Not on filedocumented in this encounter Care Teams Legal Executive Assistant Relationship Specialty Start Date End Date Eric Vu MD [address] [place] [address] PCP - General 04/18/17 documented as of this encounter
--- OUTSIDE RECORDS SUMMARY | 2024-10-01 10:21 | XMS_ITS | Encounter Summary ---
Author Organization [facility] Address [address] [place] [address] Phone Care Team Providers Care Newscast Producer Name Role Phone Noah Mckee MD Unavailable Rick Redmond MD Unavailable [phone] Deandre Mayberry DO Primary Care Provider [phone] Noah Mckee MD Unavailable Ailin Rodríguez MD Unavailable Fantasma Poole Chi, MD Unavailable Mandy Lee DO Unavailable Encounter Details Date Type Department Care Team (Late st Contact Info) Description 06/23/2022 Orders Only [facility] Oncology [address] [place] [address] Noah Mckee MD [address] [facility] [address] [place] [address] Malignant neuroendocrine neoplasm (HCC) (Primary [...] on file Legal Sex Female 3:08 AM HAZARDOUS WASTE REMOVER Gender Identity Not on file Sexual Orientation [...] developed and its performance characteristics determined by [facility] in a manner consistent with CLIA requirements. [...] a homogeneous time-resolved immunofluorescent assay manufactured by [employer] and performed on the [employer] Kryptor Compact Plus. Values obtained with different assay methods or kits may be different and cannot be used interchangeably. Test results cannot be interpreted as absolute evidence for the presence or absence of malignant disease. Test Performed by: [address] [address] Practice Managers: Jimmie Meng M.D. Ph.D.; CLIA# [id number] Blood 08/07/2022 9:30 AM CDT 08/07/2022 11:11 AM CDT Noah Mckee MD LAB BLOOD ORDERABLES Allie carballo Result [facility] [address] Department [place] [address] * (ABNORMAL) Comprehensive metabolic panel (08/07/2022 9:30 AM CDT) Sodium 137 135 - 145 mmol/L CERNER Comment:Testing performed by : [facility],[address] [place] [address] Potassium, pl 3.7 3.3 - 4.9 mmol/L CERNER Comment:Testing performed by : [facility],[address] [place] [address] Chloride 99 97 - 110 mmol/L CERNER Comment:Testing performed by : [facility],[address] [place] [address] CO2 29 22 - 32 mmol/L CERNER Comment:Testing performed by : [facility],[address] [place] [address] Anion gap 9 2 - 15 mmol/L CERNER Comment:Testing performed by : [facility],[address] [place] [address] BUN 15 8 - 25 mg/dL CERNER Comment:Testing performed by : [facility],[address] [place] [address] Creatinine 0.94 0.60 - 1.10 mg/dL CERNER Comment:[facility] : [facility] [address] [place] [address] Glucose 124 70 - 199 mg/dL [facility] Comment: Interpretive Data Fasting glucose >/= 126 [...] was last revised 2022. Testing performed by: [facility],[address] [place] [address] Calcium 9.1 8.5 - 10.3 mg/dL CERNER CH Comment:Testing performed by : [facility],[address] [place] [address] Bilirubin, total 0.3 0.1 - 1.2 mg/dL CERNER CH Comment:Testing performed by : [facility],[address] [place] [address] Protein, pl 7.3 6.5 - 8.5 g/dL CERNER CH Comment:Testing performed by : [facility] [address] [place] [address] Albumin 4.4 3.5 - 5.0 g/dL CERNER CH Comment:Testing performed by : [facility] [address] [place] [address] Alk phos 106 40 - 130 Units/L CERNER CH Comment:Testing performed by : [facility],[address] [place] [address] ALT 51(H) 7 - 45 Units/L CERNER CH Comment:Testing performed by : [facility] [address] [place] [address] AST 60(H) 10 - 45 Units/L CERNER CH Comment:Testing performed by : [facility] [address] [place] [address] Blood 08/07/2022 9:30 AM CDT 08/07/2022 9:34 AM CDT Noah Mckee MD LAB BLOOD ORDERABLES Edit ed Result - Final [facility] [address] Department [place] [address] * (ABNORMAL) Serotonin serum (08/07/2022 9:30 AM CDT) Serotonin 1720(H) <=230 ng/mL [facility] CH Comment: ADDITIONAL INFORMATION This test was developed and its performance characteristics determined by [facility] in a manner consistent with CLIA requirements. This test has not been cleared or approved by the U.S. Food and Drug Administration. Test Performed by: [facility] - [facility] [address] [place] [address] Practice Managers: Jimmie Meng M.D. Ph.D.; CLIA# [id number] Blood 08/07/2022 9:30 AM CDT 08/07/2022 11:13 AM CDT Noah Mckee MD LAB BLOOD ORDERABLES Allie l Result [facility] [address] [address] [facility] [place] [address] * (ABNORMAL) Iron profile w/ IBC (08/07/2022 9:30 AM CDT) Pathologist [facility] Iron 37 35 - 145 mcg/dl [facility] TIBC 292 250 - 400 mcg/dL [facility] Transferrin saturation 13(L) 20 - 50 % PRATIK Blood 08/07/2022 9:30 AM CDT 08/07/2022 11:21 AM CDT Noah Mckee MD LAB BLOOD ORDERABLES Allie l Result Performing Organization Address City/[facility]/ZIP Co de Phone Number [facility] [address] [address] Department [place] [address] * (ABNORMAL) CBC with auto differential (08/07/2022 9:30 AM CDT) Pathologist [facility] WBC 4.0 3.8 - 9.9 K/cumm [facility] Comment:Testing performed by : [facility],[address] [facility] [address] Hgb 12.6 11.9 - 15.5 g/dL [facility] Comment:Testing performed by : [facility],[address] [facility] [address] Hct 38.6 35.6 - 45.5 % CERNER CH Comment:Testing performed by : [facility],[address] [address] Plt 317 150 - 400 K/cumm CERNER CH Comment:Testing performed by : [facility],[address] [address] MPV 9.1 9.1 - 12.3 fL C[facility]ER CH Comment:Testing performed by : [place] [address] [address] RBC 5.08 3.90 - 5.20 M/cumm CERNER CH Comment:Testing performed by : [place] [address] [address] MCV 76.0(L) 81.3 - 96.4 fL CERNER CH Comment:Testing performed by : [facility] [address] [address] MCH 24.8(L) 27.1 - 33.3 pg [facility]ER CH Comment:Testing performed [facility] : [facility] [address] [address] MCHC 32.6 32.3 - 35.7 g/dL CERNER CH Comment:Testing performed by : [place] [address] [address] RDW CV 15.5(H) 11.1 - 14.9 % CERNER CH Comment:Testing performed by : [place] [address] [address] RDW SD 42.5 35.7 - 48.1 fL C[facility]ER CH Comment:Testing performed by : [place] [address] [address] NRBC abs 0.00 0.00 - 0.01 K/cumm CERNER CH Comment:Testing performed by : [place] [address] [address] Blood 08/07/2022 9:30 AM CDT 08/07/2022 9:34 AM CDT Noah Mckee MD LAB BLOOD ORDERABLES Allie haris Result [facility] [address] Department [place] [address] documented in this encounter Visit Diagnoses Diagnosis Malignant neuroendocrine neoplasm (HCC)- Primary documented in this encounter Orders Appointment Requests Count Last Ordered Date Fi rst Ordered Date ONCBCN INJECTION APPOINTMENT REQUEST 1 07/24 ONCBCN LAB APPOINTMENT 1 08/07/2022 documented in this encounter Care Teams Newscast Producer Relationship Specialty Start Date End Date Deandre Mayberry DO [address] [place] [phone] PCP - General 09/18/18 Noah Mckee MD [address] [facility] [address] [place] [address] Medical Oncologist/Hematologis t Medical Oncology 09/19/17 Rick Redmond MD [address] [place] [phone] Referring Physician Hematology 09/19/17 Noah Mckee MD [address] [place] [address] Medical Oncologist/Hematologis t Medical Oncology 02/10/19 Ailin Rodríguez MD [address] [place] [address] Consulting Physician Radiation Oncology 10/14/19 Fantasma Poole Chi, MD [address] [place] [address] Pulmonary Disease 10/27/20 Mandy Lee DO [address] [facility] [address] [place] [address] Consulting Physician Endocrinology Diabetes & Metabolism 01/07/21 documented as of this encounter
--- OUTSIDE RECORDS SUMMARY | 2024-10-01 10:21 | XMS_ITS | Encounter Summary ---
Author Organization [facility] Address [address] [facility] [place] [address] Care Team Providers Care Configuration Management Analyst Name Role Phone Eric Vu MD Primary Care Provider [phone] Encounter Details Date Type Department Care Team (Late st Contact Info) Description 04/11/2018 Lab Requisition [facility] Care DermPath Lab [address] [place] [address] Kendall Hinton MD [address] [place] [address] Social History Tobacco Use Types Packs/Day Years Used Date Smoking Tobacco: Never Assessed Comments Unknown Sex and Gender Information Value Date Recorded Sex Assigned at Not on file Legal Sex Female 5:50 PM MID LEVEL JAVA DEVELOPER Gender Identity Not on file Sexual Orientation Not on file documented as of this encounter Plan of Treatment Not on file documented as of this encounter Procedures Procedure Name Priority Date/Time Associated Diagnosis Comments DERMATOPATHOLOGY Routine 04/10/2018 12:0 0 AM MID LEVEL JAVA DEVELOPER documented in this encounter Results * DERMATOPATHOLOGY (04/10/2018 12:00 AM MID LEVEL JAVA DEVELOPER) Case Report Dermatopathology Report Case: [id number] Authorizing Provider: Kendall Hinton MD Collected: 04/10/2018 12:00 AM Pathologist: Loretta Zhang MD Received: 04/11/2018 12:13 PM Specimen: Skin, right of midline frontal scalp 9 1:10 PM MID LEVEL JAVA DEVELOPER DERMATOPATHOLOGY LABORATORY Final Diagnosis Specimen A. SKIN, right of midline frontal scalp: INTRADERMAL MELANOCYTIC NEVUS (D22.4) 9 1:10 PM MID LEVEL JAVA DEVELOPER DERMATOPATHOLOGY LABORATORY at [address] MID LEVEL JAVA DEVELOPER Clinical History R/O EIC vs SK. 1:10 PM MID LEVEL JAVA DEVELOPER DERMATOPATHOLOGY LABORATORY Gross Description Specimen A: Received is one formalin filled container labeled with the patient's name and designated right of midline frontal scalp. The specimen consists of a punch biopsy measuring [id number], bisected. Jar 0. 1:10 PM MID LEVEL JAVA DEVELOPER DERMATOPATHOLOGY LABORATORY Microscopic Description Specimen A. SKIN, right of midline frontal scalp: There are nests of cytologically bland melanocytes within the dermis that mature with depth. 1:10 PM MID LEVEL JAVA DEVELOPER DERMATOPATHOLOGY LABORATORY Disclaimer An external and internal positive and negative controls are appropriate for the histochemical, immunohistochemical and immunofluorescence stain(s) in this case (if any), except where stated explicitly. The performance characteristics of the stain(s) cited in this report were developed and its performance characteristic determined by the Dermatopathology Laboratory at [facility], directed by Dr. Mary Whitlock. These tests need not be, and therefore are not, approved by the [place] Food and Drug Administration. The tests are used for clinical purposes. Billing Codes Specimen Charges Stain Charges 21135 1 9 1:10 PM MID LEVEL JAVA DEVELOPER DERMATOPATHOLOGY LABORATORY Embedded Images 1:10 PM MID LEVEL JAVA DEVELOPER DERMATOPATHOLOGY LABORATORY Pathology/Cytolog y TISSUE SPECIMEN FROM SKIN / Unknown 04/10/2018 04/11/2018 12:13 PM MID LEVEL JAVA DEVELOPER us Kendall Hinton MD LAB - PATHOLOGY/CYTOLOGY ORD ERABLES Final Result DERMATOPATHOLOGY LABORATORY [facility] - Department of Dermatology [address] [facility], 5th [place] [address], [facility] [phone] documented in this encounter Visit Diagnoses Not on filedocumented in this encounter Care Teams Configuration Management Analyst Relationship Specialty Start Date End Date Eric Vu MD [address] [place] [address] PCP - General 04/18/17 documented as of this encounter
--- OUTSIDE RECORDS SUMMARY | 2024-10-01 10:21 | XMS_ITS | Encounter Summary ---
Author Organization [facility] Address [address] [facility] [place] [address] Care Team Providers Care Technician'S Helper Name Role Phone Eric Vu MD Primary Care Provider [phone] Encounter Details Date Type Department Care Team (Late st Contact Info) Description 04/25/2018 Lab Requisition [facility] Care DermPath Lab [address] [place] [address] Kendall Hinton MD [address] [place] [address] Social History Tobacco Use Types Packs/Day Years Used Date Smoking Tobacco: Never Assessed Comments Unknown Sex and Gender Information Value Date Recorded Sex Assigned at Not on file Legal Sex Female 5:50 PM VASCULAR SONOGRAPHER Gender Identity Not on file Sexual Orientation Not on file documented as of this encounter Plan of Treatment Not on file documented as of this encounter Procedures Procedure Name Priority Date/Time Associated Diagnosis Comments DERMATOPATHOLOGY Routine 04/24/2018 12:0 0 AM VASCULAR SONOGRAPHER documented in this encounter Results * DERMATOPATHOLOGY (04/24/2018 12:00 AM VASCULAR SONOGRAPHER) Case Report Dermatopathology Report Case: [id number] Authorizing Provider: Kendall Hinton MD Collected: 04/24/2018 12:00 AM Pathologist: Loretta Zhang MD Received: 04/25/2018 01:57 PM Specimens: A) - Skin, left chest B) - Skin, left prooximal forearm 9 6:01 PM VASCULAR SONOGRAPHER DERMATOPATHOLOGY LABORATORY Final Diagnosis Specimen A. SKIN, left chest: SUPERFICIAL AND DEEP PERIVASCULAR LYMPHOCYTIC INFILTRATE WITH EOSINOPHILS (L30.8) (see microscopic description and comment) (see direct immunofluorescence results, [id number]) Specimen B. SKIN, left proximal forearm: SUPERFICIAL AND DEEP PERIVASCULAR LYMPHOCYTIC INFILTRATE WITH EOSINOPHILS (L30.8) (see microscopic description and comment) (see direct immunofluorescence results, [id number]) 9 6:01 PM [facility] DERMATOPATHOLOGY LABORATORY at [address] VASCULAR SONOGRAPHER Clinical History A-B: R/O blister disorder, hand foot and mouth disease. 9 6:01 PM [facility] DERMATOPATHOLOGY LABORATORY Gross Description Specimen A: Received is one formalin filled container labeled with the patient's name and designated left chest. The specimen consists of a punch biopsy measuring [id number], bisected. Jar 0. Specimen B: Received is one formalin filled container labeled with the patient's name and designated left prooximal forearm. The specimen consists of a punch biopsy measuring [id number], bisected. Jar 0. 9 6:01 PM [facility] DERMATOPATHOLOGY LABORATORY Microscopic Description Specimen A. [...] a bullous contact dermatitis. The histology of wabz-glad-xqgwd disease is not specific, but usually shows dyskeratosis and is neutrophil-predomin ant. Thus, while it cannot be completely excluded, it is felt to be less likely The direct immunofluorescence results do not support an immunobullous process. See direct immunofluorescence results. Specimen B. SKIN, left proximal forearm: See microscopic description and comment for Specimen A. 9 6:01 PM [facility] DERMATOPATHOLOGY LABORATORY Disclaimer An external and internal positive and negative controls are appropriate for the histochemical, immunohistochemical and immunofluorescence stain(s) in this case (if any), except where stated explicitly. The performance characteristics of the stain(s) cited in this report were developed and its performance characteristic determined by the Dermatopathology Laboratory at [facility], directed by Dr. Mary Whitlock. These tests need not be, and therefore are not, approved by the [place] Food and Drug Administration. The tests are used for clinical purposes. Billing Codes Specimen Charges Stain Charges 61125 58118 1 1 9 6:01 PM VASCULAR SONOGRAPHER DERMATOPATHOLOGY LABORATORY Embedded Images 9 6:01 PM VASCULAR SONOGRAPHER DERMATOPATHOLOGY LABORATORY Pathology/Cytology TISSUE SPECIMEN FROM SKIN / Unknown 04/24/2018 04/25/2018 1:57 PM VASCULAR SONOGRAPHER Miscellaneous samples (specimen) TISSUE SPECIMEN FROM SKIN / Unknown 04/24/2018 04/25/2018 1:57 PM VASCULAR SONOGRAPHER Kendall Hinton MD LAB - PATHOLOGY/CYTOLOGY ORD ERABLES Final Result DERMATOPATHOLOGY LABORATORY [facility] - Department of Dermatology [address] [place] [address] [address] [phone] documented in this encounter Visit Diagnoses Not on filedocumented in this encounter Care Teams Technician'S Helper Relationship Specialty Start Date End Date Eric Vu MD [address] [place] [phone] PCP - General 04/18/17 documented as of this encounter
--- OUTSIDE RECORDS SUMMARY | 2024-10-01 10:21 | XMS_ITS | Clinical Summary ---
Author Organization [facility] [address] Address [address] [place] [address] Care Team Providers Care Chain Mortiser Operator Name Role Phone Noah Mckee MD Unavailable Rick Redmond MD Unavailable Deandre Mayberry DO Primary Care Provider [phone] Noah Mckee MD Unavailable Ailin Rodríguez MD Unavailable Fantasma Poole Chi, MD Unavailable Mandy Lee DO Unavailable [phone] Allergies Active Allergy Reactions Criticality Noted Date Comments Amoxicillin Rash Medium 04/30/2017 Minocycline Other (See comments) Low 04/26/2017 When given with Spironolactone patient has severe pain and high blood pressure. Spironolactone Other (See comments) Low 06/07/2009 When given with Minocin patient has severe pain and high blood pressure. hypertension Medications vit D3-vit S-rwdtlvsfx-qzsq [phone] vdol-hsv-fv-mg tablet Take by mouth Active multivitamin tabletIndication s:Vitamin Deficiency Prevention Take 1 tablet by mouth Active vitamin B complex with vitamin C tabletIndication s:Vitamin Deficiency Prevention Take 0.5 tablets by mouth daily Active OCTREOTIDE ACETATE INJ Inject as directed Active rosuvastatin (CRESTOR) 40 mg tablet Take 1 tablet (40 mg total) by mouth nightly 30 tablet 11 20/202 4 Active aspirin 81 mg enteric coated tablet TAKE 1 TABLET BY MOUTH DAILY 90 tablet 3 4 Active amLODIPine (NORVASC) 10 mg tablet TAKE 1 TABLET(10 MG) BY MOUTH DAILY 30 tablet 4 Active Additional Information Patient taking differently: 5 mgoral Daily, Reported on 07/01/2024 gabapentin (NEURONTIN) 100 mg capsule 4 Active propranoloL (INDERAL) 20 mg tablet 4 Active iron aspgly,ps-C-B12- FA-Ca-suc (Ferrex 150 Forte Plus) 150-60-25-1 vn-te-dsr-mg capsuleIndicatio ns:Iron deficiency anemia, unspecified iron deficiency anemia type Take 1 tablet by mouth daily 30 capsule 3 5 Active magnesium gluconate 200 mg tabletIndication s:hypomagnesemia Take 1 tablet (200 mg total) by mouth 2 (two) times a day Active Synthroid 50 mcg tablet Take 1 tablet (50 mcg total) by mouth daily 30 tablet 07/24/19 Active everolimus (AFINITOR) 7.5 mg tabletIndication s: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 Do not take any tablet that is broken or crushed. 30 tablet 08/22/19 Active Hospital, Clinic, or Other Facility Administered [...] 04/03/2024 Assessment & Plan (04/03/2024 1:17 PM STORE PERSON): Stable continue Crestor Bilateral carotid artery stenosis 10/05/2023 Assessment & Plan (04/03/2024 1:17 PM STORE PERSON): Stable bilateral moderate asymptomatic ICA stenosis. Continue [...] 10/05/2023 Assessment & Plan (04/03/2024 1:17 PM STORE PERSON): Stable continue amlodipine Assessment & Plan (10/05/2023 [...] Date Type Department Care Team Description 09/08/2024 11:[address] [facility] [address] [place] [address] Malignant neuroendocrine neoplasm (HCC) (Primary Dx) 09/08/2024 Telephone [facility] Oncology [address] [place] [address] Noah Mckee MD 09/08/2024 Orders Only [facility] Oncology [address] [place] [address] Noah Mckee MD 09/02/2024 Orders Only [facility] Oncology [address] [facility] Floor 5 [place] [address] Noah Mckee MD 08/27/2024 Documentation [facility] [address] [facility] Floor 6 [place] [address] Pamela Larson RMA PRIOR AUTH/PAP- EVEROLIMUS 08/26/2024 Orders Only [facility] Oncology [address] [facility] Floor 5 [place] [address] Noah Mckee MD 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) 08/11/2024 9:15 AM CDT Infusion [facility] [address] [place] [address] Malignant neuroendocrine neoplasm (HCC) (Primary Dx) 08/11/2024 Orders Only [facility] Oncology [address] [facility] Floor 5 [place] [address] Noah Mckee MD 07/14/2024 9:15 AM CDT Infusion [facility] [address] [place] [address] Malignant neuroendocrine neoplasm (HCC) (Primary Dx) 07/10/2024 Results Follow-Up [facility] Endocrinology Metabolism and Lipid [address] [place] [address] Mandy Lee DO Albumin Creatinine Ratio, Urine, Hemoglobin A1c, Vitamin D 25 hydroxy, Additional followed-up results: 2 07/05/2024 Results Follow-Up [facility] Infusion Therapy [address] [place] [address] Mandy Lee DO XR Spine Cervical 2 or 3 Views from Last 3 Months Immunizations Immunization Administration [...] failure Mother Tameka Angelas Hypertension Mother Tameka Angelas neuroendocrine tumor Mother Tamekasharee Angelas age 9 1 Diabetes Mother's Sister [...] Galaviz Maternal Grandmother Shana Galaviz Mother Tameka Angelas Mother's Sister Sonia Sister 1 Luisa Salvhus [...] on file Legal Sex Female 3:08 AM STORE PERSON Gender Identity Not on file Sexual Orientation [...] Assessment 08/12/2024 08/13/2023, 08/07/2022, 09/08/2020 Influenza Vaccine (#1) 2024 01/12/2020, 2018 Zoster Vaccine Completed 07/12/2018, 03/20/2018 Hepatitis C Screening Completed 02/10/2019 Colon Cancer Screening-FIT Discontinued 06/15/2022 Procedures Procedure Name Priority Date/Time Associated Diagnosis Comments FIT OCCULT BLOOD, FECAL Routine 06/15/2022 9:30 AM CDT HEPATITIS PANEL, ACUTE Routine 02/10/2019 9:30 AM STORE PERSON Exposure to hepatitis from Last 3 Months or Most Recently Relevant to Health Maintenance Results * FIT occult blood, fecal (06/15/2022 9:30 AM CDT) [facility] Occult blood, fecal Negative Negative [facility] - 01 06/15/2022 9:30 AM CDT 06/15/2022 Comment:[facility] - 06/16/2022 4:11 PM CDT Performed at: 01 - [facility] [address] [id number] [place]let Gluer: Abiel Cruz PhD, Phone: [phone] us Noah Mckee MD LAB BODY FLUIDS AND STOOL S ORDERABLES Final Result [facility] - 01 * Hepatitis panel, acute (02/10/2019 9:30 AM STORE PERSON) Hep A IgM Negative Negative [facility] Hep B core IgM Negative Negative [facility] Hep C Ab Negative Negative [facility] HepBsAg Nonreactive Nonreactive [facility] Blood specimen (specimen) 02/10/2019 9:30 AM STORE PERSON 02/10/2019 10:33 AM STORE PERSON us Noah Mckee MD LAB MICROBIOLOGY - GENERA L ORDERABLES Final Result Performing Organization Address City/[facility]/ZIP Co de Phone Number [facility] [address] Department [place] [address] from Last 3 Months or Most Recently Relevant to Health Maintenance Insurance [facility] MEDICARE FOR LIFE MEDICARE FOR LIFE [facility] MEDICARE [facility] Care Teams Chain Mortiser Operator Relationship Specialty Start Date End Date Deandre Mayberry DO [address] [place] [address] PCP - General 09/18/18 Noah Mckee MD [address] [place] [address] Medical Oncologist/Hematologis t Medical Oncology 09/19/17 Rick Redmond MD [address] [place] [address] Referring Physician Hematology 09/19/17 Noah Mckee MD [address] [place] [address] Medical Oncologist/Hematologis t Medical Oncology 02/10/19 Ailin Rodríguez MD [address] [place], [place] [id number] Consulting Physician Radiation Oncology 10/14/19 Fantasma Poole Chi, MD [address] [place] [address] Pulmonary Disease 10/27/20 Mandy Lee DO [address] [facility] [address] [place] [address] Consulting Physician Endocrinology Diabetes & Metabolism 01/07/21
--- OUTSIDE RECORDS SUMMARY | 2024-10-01 10:21 | XMS_ITS | Encounter Summary ---
Author Organization [facility] Address [address] [place] [address] Care Team Providers Care Wet Mixer Name Role Phone Eric Vu MD Primary Care Provider [phone] Encounter Details Date Type Department Care Team (Late st Contact Info) Description 04/15/2020 Lab Requisition [facility] DermPath Lab [address] [place] [address] Kendall Hinton MD [address] [place] [address] Social History Tobacco Use Types Packs/Day Years Used Date Smoking Tobacco: Never Assessed Comments Unknown Sex and Gender Information Value Date Recorded Sex Assigned at Not on file Legal Sex Female 5:50 PM JACK TAMP OPERATOR Gender Identity Not on file Sexual Orientation Not on file documented as of this encounter Plan of Treatment Not on file documented as of this encounter Procedures Procedure Name Priority Date/Time Associated Diagnosis Comments DERMATOPATHOLOGY Routine 04/14/2020 3:27 AM JACK TAMP OPERATOR documented in this encounter Results * DERMATOPATHOLOGY (04/14/2020 3:27 AM JACK TAMP OPERATOR) Case Report Dermatopathology Report Case: [id number] Authorizing Provider: Kendall Hinton MD Collected: 04/14/2020 03:27 AM Ordering Location: [facility] DermPath Lab Received: 04/15/2020 01:24 PM Pathologist: Asya Whitlock MD Specimen: Skin, left mid paraspinal back 4:56 PM JACK TAMP OPERATOR DERMATOPATHOLOGY LABORATORY Final Diagnosis Specimen A. SKIN, left mid paraspinal back: PIGMENTED SEBORRHEIC KERATOSIS (L82.1) 4:56 PM JACK TAMP OPERATOR DERMATOPATHOLOGY LABORATORY at [address] JACK TAMP OPERATOR Clinical History R/O ISK vs dys nevus. 4:56 PM [facility] DERMATOPATHOLOGY LABORATORY Gross Description Specimen A: Received is one formalin filled container labeled with the patient's name and designated left mid paraspinal back. The specimen consists of a shave biopsy measuring [id number]. Jar 0. 4:56 PM [facility] DERMATOPATHOLOGY LABORATORY Microscopic Description Specimen A. SKIN, left mid paraspinal back: Sections show an acanthotic lesion composed of relatively uniform keratinocytes. There is hyperkeratosis and pseudo horn cysts. Pigment is present in the keratinocytes composing this tumor. 4:56 PM [facility] DERMATOPATHOLOGY LABORATORY Disclaimer An external and internal positive and negative controls are appropriate for the histochemical, immunohistochemical and immunofluorescence stain(s) in this case (if any), except where stated explicitly. The performance characteristics of the stain(s) cited in this report were developed and its performance characteristic determined by the Dermatopathology Laboratory at [facility], directed by Dr. Mary Whitlock. These tests need not be, and therefore are not, approved by the [place] Food and Drug Administration. The tests are used for clinical purposes. Billing Codes Specimen Charges Stain Charges 67011 1 4:56 PM [facility] DERMATOPATHOLOGY LABORATORY Embedded Images 4:56 PM [facility] DERMATOPATHOLOGY LABORATORY Pathology/Cytolo gy TISSUE SPECIMEN FROM SKIN / Unknown 04/14/2020 3:27 AM JACK TAMP OPERATOR 04/15/2020 1:24 PM [facility] us Kendall Hinton MD LAB - PATHOLOGY/CYTOLOGY ORD ERABLES Final Result DERMATOPATHOLOGY LABORATORY [facility] - Department of Dermatology [address], [address] [phone] documented in this encounter Visit Diagnoses Not on filedocumented in this encounter Care Teams Wet Mixer Relationship Specialty Start Date End Date Eric Vu MD [address] [place] [address] PCP - General 04/18/17 documented as of this encounter
--- OUTSIDE RECORDS SUMMARY | 2024-10-01 10:21 | XMS_ITS ---
Author Organization [facility] [address] Address [address] [place] [address] Care Team Providers Care Nail Mill Worker Name Role Phone Noah Mckee MD Unavailable Rick Redmond MD Unavailable [phone] Deandre Mayberry DO Primary Care Provider [phone] Noah Mckee MD Unavailable Ailin Rodríguez MD Unavailable Fantasma Poole Chi, MD Unavailable Mandy Lee DO Unavailable Active Problems Problem Noted Date Diagnosed Date Mixed hyperlipidemia 04/03/2024 Assessment & Plan (04/03/2024 1:17 PM SCRAP CRANE OPERATOR): Stable continue Crestor Bilateral carotid artery stenosis 10/05/2023 Assessment & Plan (04/03/2024 1:17 PM SCRAP CRANE OPERATOR): Stable bilateral moderate asymptomatic ICA stenosis. Continue [...] 10/05/2023 Assessment & Plan (04/03/2024 1:17 PM SCRAP CRANE OPERATOR): Stable continue amlodipine Assessment & Plan (10/05/2023 [...] Medications Current Day (Day 1 , Cycle 38 - Planned for 09/08/2024) Next Day (Day 1, Cycle 39 - Planned for 10/06/2024) dexAMETHasone (DECADRON) 0.1 mg/mLeverolimus (AFINITOR) dexAMETHasone oral liquid 0.5 mg/5 mL No medications scheduled. 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 Octreotide 28 Day Cycles - Carcinoid* Plan Start Date:2017 Plan Provider:Noah Mckee MD Linked Problems Malignant neuroendocrine marisol plasm (HCC) Treatment Medications Current Day (Day 1 , Cycle 96 - Planned for 10/06/2024) Next Day (Day 1, Cycle 97 - Planned for 11/03/2024) octreotide (SandoSTATIN LAR)octreotide LAR (SandoSTATIN LAR) octreotide [...]
[2024-10-01 10:36] LABS: Hematocrit 43.1 % (37.0-47.0); Hemoglobin 13.8 g/dL (12.0-15.0); Immature Granulocyte Percent A 0.2 % (0-0.5); Lymphocytes Absolute Auto 1.55 K/mm3 (0.9-3.2); Mean Corpuscular HGB Conc 32.0 g/dl (32-36); Mean Corpuscular Hemoglobin 26.2 pg (26-34); Mean Corpuscular Volume 81.9 fl (80-100); Nucleated Red Blood Cells Absolute Auto 0.000 K/mm3 (0.0-0.012); Nucleated Red Blood Cells Perc 0.0 % (0.0-0.2); Platelet Count Result 316 k/mm3 (150-375); Red Blood Count 5.26 M/mm3 (4.2-5.4); White Blood Count 4.9 K/mm3 (4.5-10.0)
== END 2024-10-01 10:12 | disposition home or self-care (01) ==
PROVIDERS: PCP Internal Medicine; Visit Provider Internal Medicine
DX: D64.9 Anemia, unspecified (principal)
CPT/HCPCS: 36415; 85025

== ENCOUNTER 2024-11-11 09:00 | Outpatient (CLI) | payer MEDICARE, BC, OTHER, SELFPAY ==
--- NOTE | 2024-11-10 13:00 | NEURO_ITS ---
Impression: # Non-diabetic that complains of numbness of upper and lower extremities. History of chemotherapy. 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 # Needle/ EMG exam revealed decreased motor unit potentials, but no fibrillation or neurogenic changes. Nerve Conduction Studies ?Stim Site NR Peak (ms) P-T Amp (?V) Site1 Site2 Delta-P (ms) Dist (cm) Shyam (m/s) Left Median Anti Sensory (2-3nd Digit) Wrist ? 3.4 32.4 Wrist 2-3nd Digit 3.4 14.0 41 Wrist ? 3.6 31.6 Wrist 2-3nd Digit 3.4 14.0 41 Right Median Anti Sensory (2-3nd Digit) Wrist ? 3.8 29.7 Wrist 2-3nd Digit 3.8 14.0 37 Wrist ? 3.9 31.3 Wrist 2-3nd Digit 3.8 14.0 37 Left Radial Anti Sensory (Base 1st Digit) Wrist ? 2.5 12.3 Wrist Base 1st Digit 2.5 0.0 Right Radial Anti Sensory (Base 1st Digit) Wrist ? 3.1 6.6 Wrist Base 1st Digit 3.1 0.0 Left Sup Fibular Anti Sensory (Ant Lat Mall)??? NO RESPONSE 14 cm NR 14 cm Ant Lat Mall 16.0 Right Sup Fibular Anti Sensory (Ant Lat Mall)??? NO RESPONSE 14 cm NR 14 cm Ant Lat Mall 16.0 Left Sural Anti Sensory (Lat Mall)??? NO RESPONSE Calf NR Calf Lat Mall 16.0 Right Sural Anti Sensory (Lat Mall)??? NO RESPONSE Calf NR Calf Lat Mall 16.0 Left Ulnar Anti Sensory (5th Digit) Wrist ? 3.0 25.0 Wrist 5th Digit 3.0 14.0 47 Right Ulnar Anti Sensory (5th Digit) Wrist ? 3.5 10.2 Wrist 5th Digit 3.5 14.0 40 ?Stim Site NR Onset (ms) O-P Amp (mV) Site1 Site2 Delta-0 (ms) Dist (cm) Shyam (m/s) Left Median Motor (Abd Poll Brev) Wrist ? 3.5 4.9 Elbow Wrist 5.5 31.0 56 Elbow ? 9.0 4.5 Right Median Motor (Abd Poll Brev) Wrist ? 4.2 5.1 Elbow Wrist 5.2 29.0 56 Elbow ? 9.4 5.2 Left Peroneal Motor (Vastus Med) Ankle ? 6.3 1.1 Popit Ankle 9.8 40.0 41 Popit ? 16.1 0.5 Right Peroneal Motor (Vastus Med) Ankle ? 6.3 0.4 Popit Ankle 11.0 39.0 35 Popit ? 17.3 0.5 Left Tibial Motor (Abd Mccollum Brev) Ankle ? 6.0 2.5 Knee Ankle 11.9 43.0 36 Knee ? 17.9 2.1 Right Tibial Motor (Abd Mccollum Brev) Ankle ? 6.3 4.2 Knee Ankle 9.8 40.0 41 Knee ? 16.1 2.8 Left Ulnar Motor (Abd Dig Minimi) Wrist ? 2.8 4.8 A Elbow Wrist 6.3 32.0 51 A Elbow ? 9.1 5.0 B Elbow Wrist 4.7 23.0 49 B Elbow ? 7.5 3.1 Right Ulnar Motor (Abd Dig Minimi) Wrist ? 3.0 3.0 A Elbow Wrist 6.3 29.0 46 A Elbow ? 9.3 1.4 B Elbow Wrist 4.3 21.0 49 B Elbow ? 7.3 1.4 F Wave Studies ?NR F-Lat (ms) L-R F-Lat (ms) Left Median (Mrkrs) (Abd Poll Brev) ? 29.36 0.23 Right Median (Mrkrs) (Abd Poll Brev) ? 29.12 0.23 Left Peroneal (Mrkrs) (EDB) ? 59.04 1.43 Right Peroneal (Mrkrs) (EDB) ? 60.47 1.43 Left Tibial (Mrkrs) (Abd Hallucis) ? 59.90 0.84 Right Tibial (Mrkrs) (Abd Hallucis) ? 60.74 0.84 Left Ulnar (Mrkrs) (Abd Dig Min) ? 31.52 0.70 Right Ulnar (Mrkrs) (Abd Dig Min) ? 32.22 0.70 Electromyography ?Side Muscle Nerve Root Ins Act Fibs Amp Dur Recrt Comment Right Gastroc Tibial S1-2 Nml Nml Decr >12ms Nml Left Gastroc Tibial S1-2 Nml Nml Decr >12ms Nml Right Flex Dig Long Tibial L5-S2 Nml Nml Decr >12ms Nml Left Flex Dig Long Tibial L5-S2 Nml Nml Decr >12ms Nml Right Fibularis Long Sup Br Fibular L5-S1 Nml Nml Decr >12ms Nml Left Fibularis Long Sup Br Fibular L5-S1 Nml Nml Decr >12ms Nml Right Ext Dig Brev Dp Br Fibular L5, S1 Nml Nml Decr >12ms Nml Left Ext Dig Brev Dp Br Fibular L5, S1 Nml Nml Decr >12ms Nml Right QuadratusFem QuadFemoris L4-5, S1 Nml Nml Nml Nml Nml Left QuadratusFem QuadFemoris L4-5, S1 Nml Nml Nml Nml Nml Right AntTibialis Dp Br Fibular L4-5 Nml Nml Decr >12ms Nml Left AntTibialis Dp Br Fibular L4-5 Nml Nml Decr >12ms Nml Right Abd Poll Brev Median C8-T1 Nml Nml Nml >12ms +1 Left Abd Poll Brev Median C8-T1 Nml Nml Nml >12ms +1 Right ABD Dig Min Ulnar C8-T1 Nml Nml Nml >12ms +1 Left ABD Dig Min Ulnar C8-T1 Nml Nml Nml >12ms +1 Right 1stDorInt Ulnar C8-T1 Nml Nml Nml >12ms +1 Left 1stDorInt Ulnar C8-T1 Nml Nml Nml >12ms +1 Right FlexPolLong Median (Ant Int) C7-8 Nml Nml Nml >12ms +1 Left FlexPolLong Median (Ant Int) C7-8 Nml Nml Nml >12ms +1 Right Ext Indicis Radial (Post Int) C7-8 Nml Nml Nml >12ms +1 Left Ext Indicis Radial (Post Int) C7-8 Nml Nml Nml >12ms +1 Right Ext Digitorum Radial (Post Int) C7-8 Nml Nml Nml >12ms +1 Left Ext Digitorum Radial (Post Int) C7-8 Nml Nml Nml >12ms +1 Right Abd Poll Long Radial (Post Int) C7-8 Nml Nml Nml >12ms +1 Left Abd Poll Long Radial (Post Int) C7-8 Nml Nml Nml >12ms +1 Right PronatorTeres Median C6-7 Nml Nml Nml >12ms +1 Left PronatorTeres Median C6-7 Nml Nml Nml >12ms +1 Right BrachioRad Radial C5-6 Nml Nml Nml >12ms +1 Left BrachioRad Radial C5-6 Nml Nml Nml >12ms +1
--- OUTSIDE RECORDS SUMMARY | 2024-11-10 13:19 | XMS_ITS | Clinical Summary ---
Author Organization [facility] Address [address] [place] [address] Care Team Providers Care Packaging Sales Representative Name Role Phone Eric Vu MD Primary [...] on file Legal Sex Female 11:34 AM DEVELOPMENT CONSULTANT Gender Identity Not on file Sexual Orientation Not on file Last Filed Vital Signs Vital Sign Reading Time Taken Comments Blood Pressure 129/83 04/26/2017 2:05 PM DEVELOPMENT CONSULTANT Pulse 81 04/26/2017 2:05 PM DEVELOPMENT CONSULTANT Temperature 36.4 C (97.6 F) 04/26/2017 2:05 PM DEVELOPMENT CONSULTANT Respiratory Rate 16 04/20/2017 11:24 AM DEVELOPMENT CONSULTANT Oxygen Saturation - - Inhaled Oxygen Concentration - - Weight 59.1 kg (130 lb 3.2 oz) 04/26/2017 2:05 P M DEVELOPMENT CONSULTANT Height 170.2 cm (5' 7) 04/26/2017 2:05 PM DEVELOPMENT CONSULTANT Body Mass Index 20.39 04/26/2017 2:05 PM DEVELOPMENT CONSULTANT Plan of Treatment Health Maintenance Due Date [...] 2018 ZOSTER VACCINE Completed 07/12/2018, 03/20/2018 Insurance [facility] Care Teams Packaging Sales Representative Relationship Specialty Start Date End Date Eric Vu MD PCP - General Internal Medicine 04/20/17
--- OUTSIDE RECORDS SUMMARY | 2024-11-10 13:19 | XMS_ITS | Encounter Summary ---
Author Organization [facility] Address [address] [facility] [place] [address] Care Team Providers Care Pattern Developer Name Role Phone Eric Vu MD Primary Care Provider [phone] Encounter Details Date Type Department Care Team (Late st Contact Info) Description 04/25/2018 Lab Requisition [facility] Care DermPath Lab [address] [place] [address] Kend[place] [address] Social History Tobacco Use Types Packs/Day Years Used Date Smoking Tobacco: Never Assessed Comments Unknown Sex and Gender Information Value Date Recorded Sex Assigned at Not on file Legal Sex Female 5:50 PM DRY PAN CHARGER Gender Identity Not on file Sexual Orientation Not on file documented as of this encounter Plan of Treatment Not on file documented as of this encounter Procedures Procedure Name Priority Date/Time Associated Diagnosis Comments IMMUNOFLUORESCENT STUDY DERM Routine 04/24/2018 12:00 AM DRY PAN CHARGER documented in this encounter Results * IMMUNOFLUORESCENT STUDY DERM (04/24/2018 12:00 AM DRY PAN CHARGER) Case Report Dermatopathol ogy Report Case: [id number] Authorizing Provider: Kendall Hinton MD Collected: 04/24/2018 12:00 AM Pathologist: Loretta Zhang MD Received: 04/25/2018 01:59 PM Specimen: Skin, left proximal forearm 9 6:02 PM DRY PAN CHARGER DERMATOPATHOLOGY LABORATORY Final Diagnosis Specimen A. SKIN, left proximal forearm: COLLOID BODIES (L98.9) (see microscopic description and comment) (see fixed tissue results, [id number]) 9 6:02 PM DRY PAN CHARGER DERMATOPATHOLOGY LABORATORY at 1802 DRY PAN CHARGER Direct Immunofluorescence Report - Specimen A Specimen A IgA IgM IgG C3 CollV Fibrinogen Epidermis Negative Negative Negative Negative Negative Negative Basement Membrane Negative Negative Negative Negative 2+ Negative Vessels Negative Negative Negative Negative 2+ Negative Interstitium Colloid bodies Colloid bodies Colloid bodies Negative Negative Non specific 9 6:02 PM DRY PAN CHARGER DERMATOPATHOLOGY LABORATORY Clinical History R/O blister disorder, hand foot and mouth disease. 9 6:02 PM [facility] DERMATOPATHOLOGY LABORATORY Gross Description Specimen A: Received is one Benedicto's media filled container labeled with the patient's name and designated left proximal forearm. The specimen consists of a punch biopsy measuring [id number]. The specimen is submitted in whole for direct immunofluores cence testing. 9 6:02 PM [facility] DERMATOPATHOLOGY LABORATORY Microscopic Description Specimen [...] chronic irritation / rubbing. 9 6:02 PM [facility] DERMATOPATHOLOGY LABORATORY Disclaimer An external and internal positive and negative controls are appropriate for the histochemical , immunohistoch emical and immunofluores cence stain(s) in this case (if any), except where stated explicitly. The performance characteristi cs of the stain(s) cited in this report were developed and its performance characteristi c determined by the Dermatopathol ogy Laboratory at [facility], directed by Dr. Mary Whitlock. These tests need not be, and therefore are not, approved by the [place] Food and Drug Administratio n. The tests are used for clinical purposes. Billing Codes Specimen Charges Stain Charges 12385 91894 66125 [id number] 49875 1 1 1 1 1 1 9 6:02 PM [facility] DERMATOPATHOLOGY LABORATORY Embedded Images 9 6:02 PM [facility] DERMATOPATHOLOGY LABORATORY Pathology/Cytolog y TISSUE SPECIMEN FROM SKIN / Unknown 04/24/2018 04/25/2018 1:59 PM DRY PAN CHARGER Kendall Hinton MD LAB - PATHOLOGY/CYTOLOGY ORD ERABLES Final Result DERMATOPATHOLOGY LABORATORY [facility] - Department of Dermatology [address] [place] [address], 5th Floor Lab [address] [phone] documented in this encounter Visit Diagnoses Not on filedocumented in this encounter Care Teams Pattern Developer Relationship Specialty Start Date End Date Eric Vu MD [address] [place] [address] PCP - General 04/18/17 documented as of this encounter
--- OUTSIDE RECORDS SUMMARY | 2024-11-10 13:19 | XMS_ITS | Encounter Summary ---
Author Organization [facility] Address [address] [place] [address] Phone Care Team Providers Care Taker Off Drying Kiln Name Role Phone Noah Mckee MD Unavailable [phone] Rick Redmond MD Unavailable [phone] Deandre Mayberry DO Primary Care Provider [phone] Noah Mckee MD Unavailable Ailin Rodríguez MD Unavailable Fantasma Poole Chi, MD Unavailable [phone] Mandy Lee DO Unavailable [phone] Encounter Details Date Type Department Care Team [...] on file Legal Sex Female 3:08 AM ASSISTANT TEACHER PRIMARY Gender Identity Not on file Sexual Orientation [...] on filedocumented in this encounter Care Teams Taker Off Drying Kiln Relationship Specialty Start Date End Date Deandre Mayberry DO [address] [place] [address] PCP - General 09/18/18 Noah Mckee MD [address] [place], [place] [id number] Medical Oncologist/Hematologis t Medical Oncology 09/19/17 Rick Redmond MD [address] [place] [address] Referring Physician Hematology 09/19/17 Noah Mckee MD [address] [place] [address] Medical Oncologist/Hematologis t Medical Oncology 02/10/19 Ailin Rodríguez MD [address] [place] [address] Consulting Physician Radiation Oncology 10/14/19 Fantasma Poole Chi, MD [address] [place] [address] Pulmonary Disease 10/27/20 Mandy Lee DO [address] [facility] [address] [place] [address] Consulting Physician Endocrinology Diabetes & Metabolism 01/07/21 documented as of this encounter
--- OUTSIDE RECORDS SUMMARY | 2024-11-10 13:19 | XMS_ITS | Encounter Summary ---
Author Organization [facility] Address [address] [facility] [place] [address] Care Team Providers Care Hand Tire Trimmer Name Role Phone Eric Vu MD Primary Care Provider [phone] Encounter Details Date Type Department Care Team (Late st Contact Info) Description 04/11/2018 Lab Requisition [facility] Care D[facility] Lab [address] [place] [address] Kendall Hinton MD [address] [place] [address] Social History Tobacco Use Types Packs/Day Years Used Date Smoking Tobacco: Never Assessed Comments Unknown Sex and Gender Information Value Date Recorded Sex Assigned at Not on file Legal Sex Female 5:50 PM STONE FABRICATOR Gender Identity Not on file Sexual Orientation Not on file documented as of this encounter Plan of Treatment Not on file documented as of this encounter Procedures Procedure Name Priority Date/Time Associated Diagnosis Comments DERMATOPATHOLOGY Routine 04/10/2018 12:0 0 AM STONE FABRICATOR documented in this encounter Results * DERMATOPATHOLOGY (04/10/2018 12:00 AM STONE FABRICATOR) Case Report Dermatopathology Report Case: [id number] Authorizing Provider: Kendall Hinton MD Collected: 04/10/2018 12:00 AM Pathologist: Loretta Zhang MD Received: 04/11/2018 12:13 PM Specimen: Skin, right of midline frontal scalp 9 1:10 PM STONE FABRICATOR DERMATOPATHOLOGY LABORATORY Final Diagnosis Specimen A. SKIN, right of midline frontal scalp: INTRADERMAL MELANOCYTIC NEVUS (D22.4) 9 1:10 PM STONE FABRICATOR DERMATOPATHOLOGY LABORATORY at 1310 STONE FABRICATOR Clinical History R/O EIC vs SK. 1:10 PM STONE FABRICATOR DERMATOPATHOLOGY LABORATORY Gross Description Specimen A: Received is one formalin filled container labeled with the patient's name and designated right of midline frontal scalp. The specimen consists of a punch biopsy measuring [id number], bisected. Jar 0. 1:10 PM STONE FABRICATOR DERMATOPATHOLOGY LABORATORY Microscopic Description Specimen A. SKIN, right of midline frontal scalp: There are nests of cytologically bland melanocytes within the dermis that mature with depth. 1:10 PM STONE FABRICATOR DERMATOPATHOLOGY LABORATORY Disclaimer An external and internal positive and negative controls are appropriate for the histochemical, immunohistochemical and immunofluorescence stain(s) in this case (if any), except where stated explicitly. The performance characteristics of the stain(s) cited in this report were developed and its performance characteristic determined by the Dermatopathology Laboratory at [facility], directed by Dr. Mary Whitlock. These tests need not be, and therefore are not, approved by the [place] Food and Drug Administration. The tests are used for clinical purposes. Billing Codes Specimen Charges Stain Charges 54407 1 9 1:10 PM STONE FABRICATOR DERMATOPATHOLOGY LABORATORY Embedded Images 1:10 PM STONE FABRICATOR DERMATOPATHOLOGY LABORATORY Pathology/Cytolog y TISSUE SPECIMEN FROM SKIN / Unknown 04/10/2018 04/11/2018 12:13 PM STONE FABRICATOR us Kendall Hinton MD LAB - PATHOLOGY/CYTOLOGY ORD ERABLES Final Result DERMATOPATHOLOGY LABORATORY [facility] - Department of Dermatology [address] [facility], 5th [place] [address], [facility] [phone] documented in this encounter Visit Diagnoses Not on filedocumented in this encounter Care Teams Hand Tire Trimmer Relationship Specialty Start Date End Date Eric Vu MD [address] [place] [address] PCP - General 04/18/17 documented as of this encounter
--- OUTSIDE RECORDS SUMMARY | 2024-11-10 13:19 | XMS_ITS | Encounter Summary ---
Author Organization [facility] Address [address] [place] [address] Care Team Providers Care Accounting Tutor Name Role Phone Eric Vu MD Primary Care Provider + Noah Mckee MD Unavailable Rick Redmond MD Unavailable [phone] Deandre Mayberry DO Primary Care Provider [phone] Noah Mckee MD Unavailable Ailin Rodríguez MD Unavailable Fantasma Poole Chi, MD Unavailable Mandy Lee DO Unavailable [phone] Encounter Details Date Type Department Care Team (Late st Contact Info) Description 05/01/2017 [facility] [address] [place] [address] Noah Mckee MD [address] [facility] [address] [place] [address] Social History Tobacco Use Types Packs/Day Years Used Date Smoking Tobacco: Former Smokeless Tobacco: Never Alcohol Use Standard Drinks/Week Comments Yes 0 (1 standard drink = 0.6 oz pur e alcohol) Comments Unknown Sex and Gender Information Value Date Recorded Sex Assigned at Not on file Legal Sex Female 3:08 AM CODE NUMBER STAMPER Gender Identity Not on file Sexual Orientation Not on file documented as of this encounter Plan of Treatment Not on file documented as of this encounter Visit Diagnoses Not on filedocumented in this encounter Additional Health Concerns Infection Onset Date Last Indicated Resolved Time COVID: Suspected 09/08/2020 09/08/2020 09/08/2020 8:44 PM CDT documented as of this encounter Care Teams Accounting Tutor Relationship Specialty Start Date End Date Eric Vu MD PCP - General 04/11/17 09/17/18 Deandre Mayberry DO [address] [place] [address] PCP - General 09/18/18 Noah Mckee MD [address] [place], [place] [id number] Medical Oncologist/Hematologis t Medical Oncology 09/19/17 Rick Redmond MD [address] [place] [address] Referring Physician Hematology 09/19/17 Noah Mckee MD [address] [place] [address] Medical Oncologist/Hematologis t Medical Oncology 02/10/19 Ailin Rodríguez MD [address] [place] [address] Consulting Physician Radiation Oncology 10/14/19 Fantasma Poole Chi, MD [address] [place] [address] Pulmonary Disease 10/27/20 Mandy Lee DO [address] [facility] [address] [place] [address] Consulting Physician Endocrinology Diabetes & Metabolism 01/07/21 documented as of this encounter
--- OUTSIDE RECORDS SUMMARY | 2024-11-10 13:19 | XMS_ITS | Encounter Summary ---
Author Organization [facility] Address [address] [place] [address] Care Team Providers Care Buggy Runner Name Role Phone Noah Mckee MD Unavailable Rick Redmond MD Unavailable [phone] Deandre Mayberry DO Primary Care Provider [phone] Noah Mckee MD Unavailable Ailin Rodríguez MD Unavailable Fantasma Poole Chi, MD Unavailable Mandy Lee DO Unavailable [phone] Encounter Details Date Type Department Care Team (Late st Contact Info) Description 09/15/2019 Telephone [facility] Radiology [facility] [address] [place] [address] Kortney Mayes, RT Social History Tobacco Use Types Packs/Day Years Used Date Smoking Tobacco: Former Cigarettes Smokeless Tobacco: Never Alcohol Use Standard Drinks/Week Comments Yes 0 (1 standard drink = 0.6 oz pur e alcohol) Comments No Sex and Gender Information Value Date Recorded Sex Assigned at Not on file 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 Gender Identity Not on file Sexual Orientation Not on file documented as of this encounter Plan of Treatment Not on file documented as of this encounter Visit Diagnoses Not on filedocumented in this encounter Additional Health Concerns Infection Onset Date Last Indicated Resolved Time COVID: Suspected 09/08/2020 09/08/2020 09/08/2020 8:44 PM CDT documented as of this encounter Care Teams Buggy Runner Relationship Specialty Start Date End Date Deandre Mayberry DO [address] [place] [address] PCP - General 09/18/18 Noah Mckee MD [address] [facility] [address] [place] [address] Medical Oncologist/Hematologis t Medical Oncology 09/19/17 Rick Redmond MD [address] [place] [id number] Referring Physician Hematology 09/19/17 Noah Mckee MD [address] [place] [address] Medical Oncologist/Hematologis t Medical Oncology 02/10/19 Ailin Rodríguez MD [address] [facility] [address] [place] [address] Consulting Physician Radiation Oncology 10/14/19 Fantasma Poole Chi, MD [address] [facility] [address] [place] [address] Pulmonary Disease 10/27/20 Mandy Lee DO [address] [facility] [address] [place] [address] Consulting Physician Endocrinology Diabetes & Metabolism 01/07/21 documented as of this encounter
--- OUTSIDE RECORDS SUMMARY | 2024-11-10 13:19 | XMS_ITS | Clinical Summary ---
Author Organization [facility] Address [address] [place] [address] Care Team Providers Care Wire Coating Machine Operator Name Role Phone Eric Vu MD Primary Care Provider [phone] Source Comments [facility],non-owned Affiliates and Associated Physician Practices is amultiple site organization consisting of ambulatory clinics and hospital sitesin [place], [place], [place] and [place]. This disclosure is being madepursuant to the Care Everywhere program and may not contain all information available regarding this patient. 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
--- OUTSIDE RECORDS SUMMARY | 2024-11-10 13:20 | XMS_ITS | Encounter Summary ---
Author Organization [facility] Address [address] [place] [address] Phone Care Team Providers Care Emulsion Coater Name Role Phone Noah Mckee MD Unavailable Rick Redmond MD Unavailable [phone] Deandre Mayberry DO Primary Care Provider [phone] Noah Mckee MD Unavailable Ailin Rodríguez MD Unavailable Fantasma Poole Chi, MD Unavailable Mandy Lee DO Unavailable Encounter Details Date Type Department Care Team (Late st Contact Info) Description 06/23/2022 Orders Only [facility] Oncology [address] [place] [address] Noah Mckee MD [address] [facility] [address] [place] [address] Malignant neuroendocrine neoplasm (HCC) (Primary [...] on file 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 [...] a homogeneous time-resolved immunofluorescent assay manufactured by [employer] and performed on the [employer] Kryptor Compact Plus. Values obtained with different assay methods or kits may be different and cannot be used interchangeably. Test results cannot be interpreted as absolute evidence for the presence or absence of malignant disease. Test Performed by: [address] [address] Pediatric Occupational Therapist: Jimmie Meng M.D. Ph.D.; CLIA# [id number] Blood 08/07/2022 9:30 AM CDT 08/07/2022 11:11 AM CDT Noah Mckee MD LAB BLOOD ORDERABLES Allie carballo Result [facility] [address] Department [place] [address] * (ABNORMAL) Comprehensive metabolic panel (08/07/2022 9:30 AM CDT) Sodium 137 135 - 145 mmol/L [facility]ER Comment:Testing performed by : [facility],[address] [place] [address] Potassium, pl 3.7 3.3 - 4.9 mmol/L C[facility]ER Comment:Testing performed by : [facility],[address] [place] [address] Chloride 99 97 - 110 mmol/L [facility]ER Comment:Testing performed by : [facility],[address] [place] [address] CO2 29 22 - 32 mmol/L [facility]ER Comment:Testing performed by : [facility],[address] [place] [address] Anion gap 9 2 - 15 mmol/L [facility]ER Comment:Testing performed by : [facility],[address] [place] [address] BUN 15 8 - 25 mg/dL [facility]ER Comment:Testing performed by : [facility],[address] [place] [address] Creatinine 0.94 0.60 - 1.10 mg/dL [facility] Comment:Testing performed by : [facility] [address] [place] [address] Glucose 124 70 - 199 mg/dL [facility] Comment: Interpretive Data Fasting glucose >/= 126 [...] was last revised 2022. Testing performed by: [facility],[address] [place] [address] Calcium 9.1 8.5 - 10.3 mg/dL [facility] CH Comment:Testing performed by : [facility],[address] [place] [address] Bilirubin, total 0.3 0.1 - 1.2 mg/dL [facility] CH Comment:Testing performed by : [facility],[address] [place] [address] Protein, pl 7.3 6.5 - 8.5 g/dL [facility] CH Comment:Testing performed by : [facility] [address] [place] [address] Albumin 4.4 3.5 - 5.0 g/dL [facility] CH Comment:Testing performed by : [facility] [address] [place] [address] Alk phos 106 40 - 130 Units/L [facility] CH Comment:Testing performed by : [facility],[address] [place] [address] ALT 51(H) 7 - 45 Units/L [facility] CH Comment:Testing performed by : [facility] [address] [place] [address] AST 60(H) 10 - 45 Units/L [facility] CH Comment:Testing performed by : [facility] [address] [place] [address] Blood 08/07/2022 9:30 AM CDT 08/07/2022 9:34 AM CDT Noah Mckee MD LAB BLOOD ORDERABLES Edit ed Result - Final [facility] [address] Department [place] [address] * (ABNORMAL) Serotonin serum (08/07/2022 9:30 AM CDT) Serotonin 1720(H) <=230 ng/mL [facility] Comment: ADDITIONAL INFORMATION This test was developed and its performance characteristics determined by [facility] in a manner consistent with CLIA requirements. This test has not been cleared or approved by the U.S. Food and Drug Administration. Test Performed by: [facility] Laboratories - [facility] [address] [place] [address] Pediatric Occupational Therapist: Jimmie Meng M.D. Ph.D.; CLIA# [id number] Blood 08/07/2022 9:30 AM CDT 08/07/2022 11:13 AM CDT Noah Mckee MD LAB BLOOD ORDERABLES Allie l Result [facility] [address] [facility] [place] [address] * (ABNORMAL) Iron profile w/ IBC (08/07/2022 9:30 AM CDT) Pathologist [facility] Iron 37 35 - 145 mcg/dl [facility] TIBC 292 250 - 400 mcg/dL [facility] Transferrin saturation 13(L) 20 - 50 % PRATIK Blood 08/07/2022 9:30 AM CDT 08/07/2022 11:21 AM CDT Noah Mckee MD LAB BLOOD ORDERABLES Allie l Result Performing Organization Address City/[facility]/ZIP Co de Phone Number [facility] [address] [place] [address] * (ABNORMAL) CBC with auto differential (08/07/2022 9:30 AM CDT) Pathologist [facility] WBC 4.0 3.8 - 9.9 K/cumm [facility]A Comment:Testing performed by : [facility],[address] [facility] [address] Hgb 12.6 11.9 - 15.5 g/dL [facility]A Comment:Testing performed by : [facility],[address] [facility] [address] Hct 38.6 35.6 - 45.5 % [facility] CH Comment:Testing performed by : [facility],[address] [address] Plt 317 150 - 400 K/cumm [facility] CH Comment:Testing performed by : [facility],[address] [address] MPV 9.1 9.1 - 12.3 fL [facility] CH Comment:Testing performed by : [place] [address] [address] RBC 5.08 3.90 - 5.20 M/cumm [facility] CH Comment:Testing performed by : [place] [address] [address] MCV 76.0(L) 81.3 - 96.4 fL [facility] CH Comment:Testing performed by : [facility] [address] [address] MCH 24.8(L) 27.1 - 33.3 pg [facility] CH Comment:Testing performed by : [facility] [address] [address] MCHC 32.6 32.3 - 35.7 g/dL [facility] CH Comment:Testing performed by : [place] [address] [address] RDW CV 15.5(H) 11.1 - 14.9 % [facility] CH Comment:Testing performed by : [place] [address] [address] RDW SD 42.5 35.7 - 48.1 fL [facility] CH Comment:Testing performed by : [place] [address] [address] NRBC abs 0.00 0.00 - 0.01 K/cumm [facility] CH Comment:Testing performed by : [place] [address] [address] Blood 08/07/2022 9:30 AM CDT 08/07/2022 9:34 AM CDT Noah Mckee MD LAB BLOOD ORDERABLES Allie haris Result [facility] [address] Department [place] [address] documented in this encounter Visit Diagnoses Diagnosis Malignant neuroendocrine neoplasm (HCC)- Primary documented in this encounter Orders Appointment Requests Count Last Ordered Date Fi rst Ordered Date ONCBCN INJECTION APPOINTMENT REQUEST 1 07/24 ONCBCN LAB APPOINTMENT 1 08/07/2022 documented in this encounter Care Teams Emulsion Coater Relationship Specialty Start Date End Date Deandre Mayberry DO [address] [place] [address] PCP - General 09/18/18 Noah Mckee MD [address] [facility] [address] [place] [address] Medical Oncologist/Hematologis t Medical Oncology 09/19/17 Rick Redmond MD [address] [place] [address] Referring Physician Hematology 09/19/17 Noah Mckee MD [address] [place] [address] Medical Oncologist/Hematologis t Medical Oncology 02/10/19 Ailin Rodríguez MD [address] [place] [address] Consulting Physician Radiation Oncology 10/14/19 Fantasma Poole Chi, MD [address] [place] [address] Pulmonary Disease 10/27/20 Mandy Lee DO [address] [facility] [address] [place] [address] Consulting Physician Endocrinology Diabetes & Metabolism 01/07/21 documented as of this encounter
--- OUTSIDE RECORDS SUMMARY | 2024-11-10 13:20 | XMS_ITS | Clinical Summary ---
Author Organization [facility] [place] [facility] [address] [place] [address] Care Team Providers Care Information Officer Name Role Phone Noah Mckee MD Unavailable Rick Redmond MD Unavailable [phone] Deandre Mayberry DO Primary Care Provider [phone] Noah Mckee MD Unavailable Ailin Rodríguez MD Unavailable Fantasma Poole Chi, MD Unavailable Mandy Lee DO Unavailable [phone] Allergies Active Allergy Reactions Criticality Noted Date Comments Amoxicillin Rash Medium 04/30/2017 Minocycline Other (See comments) Low 04/26/2017 When given with Spironolactone patient has severe pain and high blood pressure. Spironolactone Other (See comments) Low 06/07/2009 When given with Minocin patient has severe pain and high blood pressure. hypertension Medications vit D3-vit B-etespwofm-dfdw [id number] jjam-rmj-jr-mg tablet Take by mouth Active multivitamin tabletIndication [...] aspgly,ps-C-B12- FA-Ca-suc (Ferrex 150 Forte Plus) 150-60-25-1 fe-ld-bqm-mg capsuleIndicatio ns:Iron deficiency anemia, unspecified iron deficiency [...] 04/03/2024 Assessment & Plan (04/03/2024 1:17 PM WATER QUALITY ANALYST): Stable continue Crestor Bilateral carotid artery stenosis 10/05/2023 Assessment & Plan (04/03/2024 1:17 PM WATER QUALITY ANALYST): Stable bilateral moderate asymptomatic ICA stenosis. [...] 10/05/2023 Assessment & Plan (04/03/2024 1:17 PM WATER QUALITY ANALYST): Stable continue amlodipine Assessment & Plan [...] Encounters Date Type Department Care Team Description 11/03/2024 10:45 AM CDT Infusion [facility] at [address] [address] Malignant neuroendocrine neoplasm (HCC) (Primary Dx) 11/02/2024 Orders Only [facility] Oncology [address] [facility] Floor 5 [place] [address] Noah Mckee MD 10/06/2024 10:15 AM CDT Infusion [facility] at [place] [address] [place] [address] Malignant neuroendocrine neoplasm (HCC) (Primary Dx) 10/06/2024 9:45 AM CDT Lab [facility] [address] [place] [address] [place] [address] Malignant neuroendocrine neoplasm (HCC) 10/03/2024 Telephone [facility] Scheduling [address] [place] [address] Celeste Chávez MD PhD Scheduling Appointments 09/08/2024 11:15 AM CDT Infusion [facility] at [facility] [address] [place] [address] Malignant neuroendocrine neoplasm (HCC) (Primary Dx) 09/08/2024 Telephone [facility] Oncology [facility] [place] [address] Noah Mckee MD 09/08/2024 Orders Only [facility] Oncology [facility] [place] [address] Noah Mckee MD 09/02/2024 Orders Only [facility] Oncology [facility] Floor 5 [place] [address] Noah Mckee MD 08/27/2024 Documentation [facility] Infusion [facility] [address] [facility] Floor 6 [place] [address] Pamela Larson RMA PRIOR AUTH/PAP- EVEROLIMUS 08/26/2024 Orders Only [facility] Oncology [facility] Floor 5 [place] [address] Noah Mckee MD 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) 08/11/2024 9:15 AM CDT Infusion [facility] [address] [place] [address] Malignant neuroendocrine neoplasm (HCC) (Primary Dx) 08/11/2024 Orders Only [facility] Oncology [address] [place] [address] Floor 5 [place] [address] Noah Mckee MD from Last 3 Months [...] Maternal Grandmother Shana Galaviz Cancer Mother Tameka Salvhus Heart failure Mother Tameka Salvhus Hypertension Mother Tameka Salvhus neuroendocrine tumor Mother Tameka Salvhus age 9 1 Diabetes Mother's Sister Sonia [...] Galaviz Maternal Grandmother Shana Galaviz Mother Tameka Salvhus Mother's Sister Sonia Sister 1 Luisa Salvhus [...] on file Legal Sex Female 3:08 AM WATER QUALITY ANALYST Gender Identity Not on file Sexual Orientation Not on file Obstetrics History Last Filed Vital Signs Vital Sign Reading Time Taken Comments Blood Pressure 156/83 11/03/2024 10:00 AM CDT Pulse 78 11/03/2024 10:00 AM CDT Temperature 36.3 C (97.4 F) 11/03/2024 10:00 AM CDT Respiratory Rate 18 11/03/2024 10:00 AM CDT Oxygen Saturation 100% 11/03/2024 10:00 AM CDT Inhaled Oxygen Concentration - - Weight 53.8 kg (118 lb 9.6 oz) 11/03/2024 10:00 AM CDT Height 167.6 cm (5' 6) 07/01/2024 9:27 AM CDT Body Mass Index 19.14 07/01/2024 9:27 AM CDT Plan of Treatment [...] Procedure Name Priority Date/Time Associated Diagnosis Comments EGFR STAT 10/06/2024 9:39 AM CDT Malignant neuroendocrine neoplasm (HCC) DIFFERENTIAL AUTO STAT 10/06/2024 9:3 9 AM CDT Malignant neuroendocrine neoplasm (HCC) CBC WITH AUTO DIFFERENTIAL STAT 10/06/2024 9:39 AM CDT Malignant neuroendocrine neoplasm (HCC) LIPID PANEL Routine 10/06/2024 9:39 AM CDT Malignant neuroendocrine neoplasm (HCC) COMPREHENSIVE METABOLIC PANEL STAT 10/06/2024 9:39 AM CDT Malignant neuroendocrine neoplasm (HCC) FIT OCCULT BLOOD, FECAL Routine 06/15/2022 9:30 AM CDT HEPATITIS PANEL, ACUTE Routine 02/10/2019 9:30 AM WATER QUALITY ANALYST Exposure to hepatitis from Last 3 Months or Most Recently Relevant to Health Maintenance Results * (ABNORMAL) eGFR (10/06/2024 9:39 AM CDT) eGFR 49(L) >=60 mL/min/1. 73 m2 Comment: Interpretive Data Reference Interval Normal >/= 90 mL/min/1.73m2 Mildly decreased* 60 - 89 mL/min/1.73m2 Mildly to moderately decreased 45 - 59 mL/min/1.73m2 Moderately to severely decreased 30 - 44 mL/min/1.73m2 Severely decreased 15 - 29 mL/min/1.73m2 Kidney Failure < 15 mL/min/1.73m2 *Relative to young adult level Estimated glomerular filtration rate is determined by the 2020 CKD-EPI equation recommended by the National Kidney Foundation (A Unifying Approach to GFR Estimation: Recommendations of the NKF-ASK Task Force on Reassessing the Inclusion of Race in Diagnosing Kidney Disease, JASN 2020). The CKD-EPI equation should not be used for patients with unstable renal function and has not been validated in children and those over 70. Current interpretive data was last reviewed 2021. Testing performed by: [facility] at [facility], [place] [address] Blood 10/06/2024 9:39 AM CDT 10/06/2024 9:50 AM CDT us Noah Mckee MD LAB BLOOD ORDERABLES Allie carballo Result [facility] [address] Department [place] [address] * Differential, auto (10/06/2024 9:39 AM CDT) Pathologist [facility] Neutrophil abs 3.18 1.50 - 6.50 K/cumm Comment:Testing performed by : [facility] [place] [address] Imm gran abs 0.01 0.00 - 0.10 K/cumm CERNER CH Comment:Testing performed by : [facility] [place] [address] Lymphocyte abs 1.52 0.80 - 3.30 K/cumm CERNER CH Comment:Testing performed by : [facility] [place] [address] Monocyte abs 0.49 0.20 - 0.80 K/cumm CERNER CH Comment:Testing performed by : [facility] [place] [address] Eosinophil abs 0.13 0.00 - 0.50 K/cumm CERNER CH Comment:Testing performed by : [facility] [place] [address] Basophil abs 0.03 0.00 - 0.10 K/cumm CERNER CH Comment:Testing performed by : [facility] [place] [address] Neutrophil pct 59.3 % CERNER CH Comment: Interpretive Data Percent cell count reference ranges are not reported, since discordance with absolute values may lead to misinterpretation of CBC data. Current Interpretive Data was last revised on 2017. Testing performed by: [facility] [place] [address] Imm gran pct 0.2 % CERNER CH Comment: Interpretive Data Percent cell count reference ranges are not reported, since discordance with absolute values may lead to misinterpretation of CBC data. Current Interpretive Data was last revised on 2017. Testing performed by: [facility] [place] [address] Lymphocyte pct 28.4 % CERNER CH Comment: Interpretive Data Percent cell count reference ranges are not reported, since discordance with absolute values may lead to misinterpretation of CBC data. Current Interpretive Data was last revised on 2017. Testing performed by: [facility] [place] [address] Monocyte pct 9.1 % CERNER CH Comment: Interpretive Data Percent cell count reference ranges are not reported, since discordance with absolute values may lead to misinterpretation of CBC data. Current Interpretive Data was last revised on 2017. Testing performed by: [facility] [place] [address] Eosinophil pct 2.4 % PRATIK VERA Comment: Interpretive Data Percent cell count reference ranges are not reported, since discordance with absolute values may lead to misinterpretation of CBC data. Current Interpretive Data was last revised on 2017. Testing performed by: [facility] [place] [address] Basophil pct 0.6 % PRATIK VERA Comment: Interpretive Data Percent cell count reference ranges are not reported, since discordance with absolute values may lead to misinterpretation of CBC data. Current Interpretive Data was last revised on 2017. Testing performed by: [facility] [address] Blood 10/06/2024 9:39 AM CDT 10/06/2024 9:50 AM CDT us Noah Mckee MD LAB BLOOD ORDERABLES Allie l Result [facility] [address] Department [place] [address] * (ABNORMAL) CBC with auto differential (10/06/2024 9:39 AM CDT) WBC 5.36 3.80 - 9.90 K/cumm Comment:Testing performed by : [facility] [place] [address] Hgb 14.0 11.9 - 15.5 g/dL PRATIK VERA Comment:Testing performed by : [facility] [place] [address] Hct 42.8 35.6 - 45.5 % PRATIK VERA Comment:Testing performed by : [facility] [place] [address] Plt 287 150 - 400 K/cumm PRATIK VERA Comment:Testing performed by : [facility] [place] [address] MPV 9.5 9.1 - 12.3 fL CERNER CH Comment:Testing performed by : [facility] [place] [address] RBC 5.26(H) 3.90 - 5.20 M/cumm CERTIGIST CH Comment:Testing performed by : [facility] [place] [address] MCV 81.4 81.3 - 96.4 fL PRATIK CH Comment:Testing performed by : [facility] [place] [address] MCH 26.6(L) 27.1 - 33.3 pg CERTIGIST CH Comment:Testing performed by : [facility] [place] [address] MCHC 32.7 32.3 - 35.7 g/dL PRATIK CH Comment:Testing performed by : [facility] [place] [address] RDW CV 13.2 11.1 - 14.9 % PRATIK CH Comment:Testing performed by : [facility] [place] [address] RDW SD 39.0 35.7 - 48.1 fL CERTIGIST CH Comment:Testing performed by : [facility] [place] [address] NRBC abs 0.00 0.00 - 0.01 K/cumm PRATIK CH Comment:Testing performed by : [facility] [place] [address] ANC Prelim 3.18 1.50 - 6.50 K/cumm PRATIK CH Comment: Interpretive Data The rapid ANC is a preliminary automated count and may vary from the final ANC (Neut Abs) reported in the WBC differential that follows. Current interpretive data was last revised 2024. Testing performed by: [facility] [place] [address] Blood 10/06/2024 9:39 AM CDT 10/06/2024 9:50 AM CDT us Noah Mckee MD LAB BLOOD ORDERABLES Allie haris Result [facility] [address] Department [place] [address] * (ABNORMAL) Lipid panel (10/06/2024 9:39 AM CDT) Cholesterol 229(H) 30 - 199 mg/dL Comment: Interpretive Data [...] Data was last revised on 2017. Triglycerides 123 <=149 mg/dL PRATIK VERA Comment: Interpretive Data Ages < or = [...] Data was last revised on 2017. HDL 73 >=40 mg/dL PRATIK VERA Comment: Interpretive Data Ages < or = [...] was last revised on 2017. LDL, calculated 135(H) <=129 mg/dL PRATIK VERA Comment: Interpretive Data Ages < or = 19 years Acceptable: <110 mg/dL Borderline high: 110-129 mg/dL High: >or= 130 mg/dL Ages > or = 20 years Optimal: <100 mg/dL Near optimal: 100-129 mg/dL Borderline high: 130-159 mg/dL High: >160 mg/dL Calculated using the Zhen LDL-C estimating equation. This equation was implemented on 2023. Prior to this date LDL-C was estimated using the Friedewald equation. Literature References: 1. Expert Panel on Integrated Guidelines for Cardiovascular Health and Risk Reduction in Children and Adolescents. Pediatrics 2011;128:S213 2. NCEP Expert Panel. Circulation 2004;110:227 3. Zhen M et al. DIONISIO Cardiol. 2020 July 24;5(5):540-548. doi: 10.1001/jamacardio.2020.0013 Current Interpretive Data was last revised on 2023. Non-HDL Cholesterol 156 mg/dL PRATIK VERA Comment: Interpretive Data Ages < or = [...] was last revised on 2017. Chol/HDL ratio 3 [facility] Blood 10/06/2024 9:39 AM CDT 10/06/2024 10:55 AM CDT Narrative [facility] - 10/06/2024 11:18 AM CDT Has the patient been fasting for 8 hours or more?->No Noah Mckee MD LAB BLOOD ORDERABLES Allie carballo Result [facility]A [address] Department [place] [address] * (ABNORMAL) Comprehensive metabolic panel (10/06/2024 9:39 AM CDT) Sodium 139 135 - 145 mmol/L Comment:Testing performed by : [facility] [place] [address] Potassium, pl 4.4 3.3 - 4.9 mmol/L CERNER CH Comment:Testing performed by : [facility] [place] [address] Chloride 100 97 - 110 mmol/L CERNER CH Comment:Testing performed by : [facility] [place] [address] CO2 29 22 - 32 mmol/L CERNER CH Comment:Testing performed by : [facility] [place] [address] Anion gap 10 2 - 15 mmol/L CERNER CH Comment:Testing performed by : [facility] [place] [address] BUN 23 6 - 25 mg/dL CERNER CH Comment:Testing performed by : [facility] [place] [address] Creatinine 1.20(H) 0.60 - 1.10 mg/dL CERNER CH Comment:Testing performed by : [facility] [place] [address] Glucose 117 70 - 199 mg/dL CERNER CH Comment: Interpretive Data Fasting glucose >/= 126 [...] classification and Diagnosis of Diabetes Diabetes Care 2021; 46: S19-S40. Current interpretive data was last revised 2022. Testing performed by: [facility] [place] [address] Calcium 9.0 8.5 - 10.3 mg/dL CERNER CH Comment:Testing performed by : [facility] [place] [address] Bilirubin, total 0.5 0.1 - 1.2 mg/dL CERNER CH Comment:Testing performed by : [facility] [place] [address] Protein, pl 6.2(L) 6.5 - 8.5 g/dL CERNER CH Comment:Testing performed by : [facility] [place] [address] Albumin 3.8 3.5 - 5.0 g/dL CERNER CH Comment:Testing performed by : [facility] [place] [address] Alk phos 94 40 - 130 Units/L CERNER CH Comment:Testing performed by : [facility] [place] [address] ALT 34 7 - 45 Units/L CERNER CH Comment:Testing performed by : [facility] [place] [address] AST 46(H) 10 - 45 Units/L CERNER CH Comment:Testing performed by : [facility] [place] [address] Blood 10/06/2024 9:39 AM CDT 10/06/2024 9:50 AM CDT Noah Mckee MD LAB BLOOD ORDERABLES Allie l Result [facility] [address] Department [place] [address] * FIT occult blood, fecal (06/15/2022 9:30 AM CDT) [facility] Occult blood, fecal Negative Negative [facility] - 01 06/15/2022 9:30 AM CDT 06/15/2022 Comment:ST Tierney [facility] - 06/16/2022 4:11 PM CDT Performed at: - [facility] [id number] Application Processor: Abiel Cruz PhD, Phone: [phone] us Noah Mckee MD LAB BODY FLUIDS AND STOOL S ORDERABLES Final Result [facility] - 01 * Hepatitis panel, acute (02/10/2019 9:30 AM WATER QUALITY ANALYST) Hep A IgM Negative Negative [facility] Hep B core IgM Negative Negative [facility] Hep C Ab Negative Negative [facility] HepBsAg Nonreactive Nonreactive [facility] Blood specimen (specimen) 02/10/2019 9:30 AM WATER QUALITY ANALYST 02/10/2019 10:33 AM WATER QUALITY ANALYST Noah Mckee MD LAB MICROBIOLOGY - GENERA L ORDERABLES Final Result [facility] [address] [address] Department [place] [address] from Last 3 Months or Most Recently Relevant to Health Maintenance Insurance [employer] [place] MEDIC[place] [employer]s MEDICARE [facility] [employer] [facility] MEDICARE [facility] FEDERAL Care Teams Information Officer Relationship Specialty Start Date End Date Deandre Mayberry DO [address] [place] [address] PCP - General 09/18/18 Noah Mckee MD [address] [facility] [address] [place] [address] Medical Oncologist/Hematologis t Medical Oncology 09/19/17 Rick Redmond MD [address] [place] [address] Referring Physician Hematology 09/19/17 Noah Mckee MD [address] [place] [address] Medical Oncologist/Hematologis t Medical Oncology 02/10/19 Ailin Rodríguez MD [address] [facility] [address] [place] [address] Consulting Physician Radiation Oncology 10/14/19 Fantasma Poole Chi, MD [address] [facility] [address] [place] [address] Pulmonary Disease 10/27/20 Mandy Lee DO [address] [facility] [address] [place] [address] Consulting Physician Endocrinology Diabetes & Metabolism 01/07/21
--- OUTSIDE RECORDS SUMMARY | 2024-11-10 13:20 | XMS_ITS | Encounter Summary ---
Author Organization [facility] Address [address] [place] [address] Care Team Providers Care Shrimping Boat Captain Name Role Phone Eric Vu MD Primary Care Provider [phone] Encounter Details Date Type Department Care Team (Late st Contact Info) Description 04/25/2018 Lab Requisition [facility] Care [facility] Lab [address] [place] [address] Kendall Hinton MD [address] [place] [address] Social History Tobacco Use Types Packs/Day Years Used Date Smoking Tobacco: Never Assessed Comments Unknown Sex and Gender Information Value Date Recorded Sex Assigned at Not on file Legal Sex Female 5:50 PM STRUCTURAL MILL SUPERVISOR Gender Identity Not on file Sexual Orientation Not on file documented as of this encounter Plan of Treatment Not on file documented as of this encounter Procedures Procedure Name Priority Date/Time Associated Diagnosis Comments DERMATOPATHOLOGY Routine 04/24/2018 12:0 0 AM STRUCTURAL MILL SUPERVISOR documented in this encounter Results * DERMATOPATHOLOGY (04/24/2018 12:00 AM STRUCTURAL MILL SUPERVISOR) Case Report Dermatopathology Report Case: [id number] Authorizing Provider: Kendall Hinton MD Collected: 04/24/2018 12:00 AM Pathologist: Loretta Zhang MD Received: 04/25/2018 01:57 PM Specimens: A) - Skin, left chest B) - Skin, left prooximal forearm 9 6:01 PM STRUCTURAL MILL SUPERVISOR DERMATOPATHOLOGY LABORATORY Final Diagnosis Specimen A. SKIN, left chest: SUPERFICIAL AND DEEP PERIVASCULAR LYMPHOCYTIC INFILTRATE WITH EOSINOPHILS (L30.8) (see microscopic description and comment) (see direct immunofluorescence results, [id number]) Specimen B. SKIN, left proximal forearm: SUPERFICIAL AND DEEP PERIVASCULAR LYMPHOCYTIC INFILTRATE WITH EOSINOPHILS (L30.8) (see microscopic description and comment) (see direct immunofluorescence results, [id number]) 9 6:01 PM [facility] DERMATOPATHOLOGY LABORATORY at [address] STRUCT[employer] MILL SUPERVISOR Clinical History A-B: R/O blister disorder, hand foot and mouth disease. 9 6:01 PM [facility] DERMATOPATHOLOGY LABORATORY Gross Description Specimen A: Received is one formalin filled container labeled with the patient's name and designated left chest. The specimen consists of a punch biopsy measuring 4x7w6ph, bisected. Jar 0. Specimen B: Received is one formalin filled container labeled with the patient's name and designated left prooximal forearm. The specimen consists of a punch biopsy measuring [id number], bisected. Jar 0. 9 6:01 PM [facility] DERMATOPATHOLOGY LABORATORY Microscopic Description Specimen A. [...] a bullous contact dermatitis. The histology of iwem-swxp-kaeft disease is not specific, but usually shows dyskeratosis and is neutrophil-predomin ant. Thus, while it cannot be completely excluded, it is felt to be less likely The direct immunofluorescence results do not support an immunobullous process. See direct immunofluorescence results. Specimen B. SKIN, left proximal forearm: See microscopic description and comment for Specimen A. 9 6:01 PM [facility] DERMATOPATHOLOGY LABORATORY Disclaimer An external and internal positive and negative controls are appropriate for the histochemical, immunohistochemical and immunofluorescence stain(s) in this case (if any), except where stated explicitly. The performance characteristics of the stain(s) cited in this report were developed and its performance characteristic determined by the Dermatopathology Laboratory at [facility], directed by Dr. Mary Whitlock. These tests need not be, and therefore are not, approved by the [place] Food and Drug Administration. The tests are used for clinical purposes. Billing Codes Specimen Charges Stain Charges 36047 07140 1 1 9 6:01 PM STRUCTURAL MILL SUPERVISOR DERMATOPATHOLOGY LABORATORY Embedded Images 9 6:01 PM STRUCTURAL MILL SUPERVISOR DERMATOPATHOLOGY LABORATORY Pathology/Cytology TISSUE SPECIMEN FROM SKIN / Unknown 04/24/2018 04/25/2018 1:57 PM STRUCTURAL MILL SUPERVISOR Miscellaneous samples (specimen) TISSUE SPECIMEN FROM SKIN / Unknown 04/24/2018 04/25/2018 1:57 PM STRUCTURAL MILL SUPERVISOR Kendall Hinton MD LAB - PATHOLOGY/CYTOLOGY ORD ERABLES Final Result DERMATOPATHOLOGY LABORATORY [facility] - Department of Dermatology [address] [place] [address] [address] [phone] documented in this encounter Visit Diagnoses Not on filedocumented in this encounter Care Teams Shrimping Boat Captain Relationship Specialty Start Date End Date Eric Vu MD [address] [place] [address] PCP - General 04/18/17 documented as of this encounter
--- OUTSIDE RECORDS SUMMARY | 2024-11-10 13:20 | XMS_ITS ---
Author Organization [facility] [address] Address [address] [place] [address] Care Team Providers Care Steam Fitter Supervisor Maintenance Name Role Phone Noah Mckee MD Unavailable Rick Redmond MD Unavailable [phone] Deandre Mayberry DO Primary Care Provider [phone] Noah Mckee MD Unavailable Ailin Rodríguez MD Unavailable Fantasma Poole Chi, MD Unavailable Mandy Lee DO Unavailable [phone] Active Problems Problem Noted Date Diagnosed Date Mixed hyperlipidemia 04/03/2024 Assessment & Plan (04/03/2024 1:17 PM MASTER SCHEDULER): Stable continue Crestor Bilateral carotid artery stenosis 10/05/2023 Assessment & Plan (04/03/2024 1:17 PM MASTER SCHEDULER): Stable bilateral moderate asymptomatic ICA stenosis. Continue [...] 10/05/2023 Assessment & Plan (04/03/2024 1:17 PM MASTER SCHEDULER): Stable continue amlodipine Assessment & Plan (10/05/2023 [...] Medications Current Day (Day 1 , Cycle 98 - Planned for 12/01/2024) Next Day (Day 1, Cycle 99 - Planned for 12/29/2024) octreotide (SandoSTATIN LAR)octreotide LAR (SandoSTATIN LAR) octreotide [...]
--- OUTSIDE RECORDS SUMMARY | 2024-11-10 13:20 | XMS_ITS | Encounter Summary ---
Author Organization [facility] Address [address] [facility] [address] Care Team Providers Care Limited Radiology Technician Name Role Phone Eric Vu MD Primary Care Provider [phone] Encounter Details Date Type Department Care Team (Late st Contact Info) Description 03/09/2021 Lab Requisition [facility] DermPath Lab [address] [place] [address] Kendall Hinton MD [address] [place] [address] Social History Tobacco Use Types Packs/Day Years Used Date Smoking Tobacco: Never Assessed Comments Unknown Sex and Gender Information Value Date Recorded Sex Assigned at Not on file Legal Sex Female 5:50 PM MANAGER TESTING Gender Identity Not on file Sexual Orientation Not on file documented as of this encounter Plan of Treatment Not on file documented as of this encounter Procedures Procedure Name Priority Date/Time Associated Diagnosis Comments DERMATOPATHOLOGY Routine 03/08/2021 12:0 0 AM MANAGER TESTING documented in this encounter Results * DERMATOPATHOLOGY (03/08/2021 12:00 AM MANAGER TESTING) Case Report Dermatopathology Report [id number]: [id number] Authorizing Provider: Kendall Hinton MD Collected: 03/08/2021 12:00 AM Ordering Location: [facility] Derm[facility] Lab Received: 03/09/2021 12:43 PM Pathologist: Mandy Noguera MD Specimen: Skin, scalp vertex 4:27 PM MANAGER TESTING DERMATOPATHOLOGY LABORATORY Final Diagnosis Specimen A. SKIN, scalp vertex: FIBROSING GRANULATION TISSUE WITH OVERLYING IMPETIGINIZED AND INFLAMED SERUM SCALE CRUST (L90.5) DERMAL SCAR (see microscopic description and comment) 1 4:27 PM [facility] DERMATOPATHOLOGY LABORATORY at 1627 MANAGER TESTING Clinical History R/o SCC,BCC,erosive pustulosis vs HAK vs side effect everlimus 1 4:27 PM [facility] DERMATOPATHOLOGY LABORATORY Gross Description Specimen A: Received is one formalin filled container labeled with the patient's name and designated scalp vertex. The specimen consists of a shave biopsy measuring 8x6x2 mm. Jar 0. 1 4:27 PM [facility] DERMATOPATHOLOGY LABORATORY Microscopic Description [...] the correct clinical setting. 1 4:27 PM [facility] DERMATOPATHOLOGY LABORATORY Disclaimer An external and internal positive and negative controls are appropriate for the histochemical, immunohistochemical and immunofluorescence stain(s) in this case (if any), except where stated explicitly. The performance characteristics of the stain(s) cited in this report were developed and its performance characteristic determined by the Dermatopathology Laboratory at [facility], directed by Dr. Mary Whitlock. These tests need not be, and therefore are not, approved by the [place] Food and Drug Administration. The tests are used for clinical purposes. Billing Codes Specimen Charges Stain Charges 95769 1 21378 81387 1 1 1 4:27 PM [facility] DERMATOPATHOLOGY LABORATORY Embedded Images 1 4:27 PM [facility] DERMATOPATHOLOGY LABORATORY Pathology/Cytolog y TISSUE SPECIMEN FROM SKIN / Unknown 03/08/2021 03/09/2021 12:43 PM MANAGER TESTING Kendall Hinton MD LAB - PATHOLOGY/CYTOLOGY ORD ERABLES Final Result DERMATOPATHOLOGY LABORATORY [facility] - Department of Dermatology [address] [phone] documented in this encounter Visit Diagnoses Not on filedocumented in this encounter Care Teams Limited Radiology Technician Relationship Specialty Start Date End Date Eric Vu MD [address] [place] [address] PCP - General 04/18/17 documented as of this encounter
--- OUTSIDE RECORDS SUMMARY | 2024-11-10 13:20 | XMS_ITS | Encounter Summary ---
Author Organization [facility] Address [address] [place] [address] Care Team Providers Care Engineering Consultant Name Role Phone Eric Vu MD Primary Care Provider [phone] Encounter Details Date Type Department Care Team (Late st Contact Info) Description 04/15/2020 Lab Requisition [facility] DermPath Lab [address] [place] [address] Kendall Hinton MD [address] [place] [address] Social History Tobacco Use Types Packs/Day Years Used Date Smoking Tobacco: Never Assessed Comments Unknown Sex and Gender Information Value Date Recorded Sex Assigned at Not on file Legal Sex Female 5:50 PM BARREL FILLER Gender Identity Not on file Sexual Orientation Not on file documented as of this encounter Plan of Treatment Not on file documented as of this encounter Procedures Procedure Name Priority Date/Time Associated Diagnosis Comments DERMATOPATHOLOGY Routine 04/14/2020 3:27 AM BARREL FILLER documented in this encounter Results * DERMATOPATHOLOGY (04/14/2020 3:27 AM BARREL FILLER) Case Report Dermatopathology Report Case: [id number] Authorizing Provider: Kendall Hinton MD Collected: 04/14/2020 03:27 AM Ordering Location: [facility] DermPath Lab Received: 04/15/2020 01:24 PM Pathologist: Asya Whitlock MD Specimen: Skin, left mid paraspinal back 4:56 PM BARREL FILLER DERMATOPATHOLOGY LABORATORY Final Diagnosis Specimen A. SKIN, left mid paraspinal back: PIGMENTED SEBORRHEIC KERATOSIS (L82.1) 4:56 PM BARREL FILLER DERMATOPATHOLOGY LABORATORY at [address] BARREL FILLER Clinical History R/O ISK vs dys nevus. 4:56 PM [facility] DERMATOPATHOLOGY LABORATORY Gross Description Specimen A: Received is one formalin filled container labeled with the patient's name and designated left mid paraspinal back. The specimen consists of a shave biopsy measuring [id number]. Jar 0. 4:56 PM [facility] DERMATOPATHOLOGY LABORATORY Microscopic Description Specimen A. SKIN, left mid paraspinal back: Sections show an acanthotic lesion composed of relatively uniform keratinocytes. There is hyperkeratosis and pseudo horn cysts. Pigment is present in the keratinocytes composing this tumor. 4:56 PM [facility] DERMATOPATHOLOGY LABORATORY Disclaimer An external and internal positive and negative controls are appropriate for the histochemical, immunohistochemical and immunofluorescence stain(s) in this case (if any), except where stated explicitly. The performance characteristics of the stain(s) cited in this report were developed and its performance characteristic determined by the Dermatopathology Laboratory at [facility], directed by Dr. Mary Whitlock. These tests need not be, and therefore are not, approved by the [place] Food and Drug Administration. The tests are used for clinical purposes. Billing Codes Specimen Charges Stain Charges 42263 1 4:56 PM [facility] DERMATOPATHOLOGY LABORATORY Embedded Images 4:56 PM [facility] DERMATOPATHOLOGY LABORATORY Pathology/Cytolo gy TISSUE SPECIMEN FROM SKIN / Unknown 04/14/2020 3:27 AM BARREL FILLER 04/15/2020 1:24 PM [facility] us Kendall Hinton MD LAB - PATHOLOGY/CYTOLOGY ORD ERABLES Final Result DERMATOPATHOLOGY LABORATORY [facility] - Department of Dermatology [address], [address] [phone] documented in this encounter Visit Diagnoses Not on filedocumented in this encounter Care Teams Engineering Consultant Relationship Specialty Start Date End Date Eric Vu MD [address] [place] [address] PCP - General 04/18/17 documented as of this encounter
--- OUTSIDE RECORDS SUMMARY | 2024-11-17 09:52 | XMS_ITS | Encounter Summary ---
Author Organization [facility] Address [address] [place] [address] Phone Care Team Providers Care Market Research Assistant Name Role Phone Noah Mckee MD Unavailable [phone] Rick Redmond MD Unavailable [phone] Deandre Mayberry DO Primary Care Provider [phone] Noah Mckee MD Unavailable Ailin Rodríguez MD Unavailable Fantasma Poole Chi, MD Unavailable Mandy Lee DO Unavailable [phone] Encounter Details Date Type Department Care Team [...] on file Legal Sex Female 3:08 AM DIRECTOR OF INFECTION CONTROL Gender Identity Not on file Sexual Orientation [...] on filedocumented in this encounter Care Teams Market Research Assistant Relationship Specialty Start Date End Date Deandre Mayberry DO [address] [place] [address] PCP - General 09/18/18 Noah Mckee MD [address] [place], [place] [phone] Medical Oncologist/Hematologis t Medical Oncology 09/19/17 Rick Redmond MD [address] [place] [address] Referring Physician Hematology 09/19/17 Noah Mckee MD [address] [place] [address] Medical Oncologist/Hematologis t Medical Oncology 02/10/19 Ailin Rodríguez MD [address] [place] [address] Consulting Physician Radiation Oncology 10/14/19 Fantasma Poole Chi, MD [address] [place] [address] Pulmonary Disease 10/27/20 Mandy Lee DO [address] [facility] [address] [place] [address] Consulting Physician Endocrinology Diabetes & Metabolism 01/07/21 documented as of this encounter
--- OUTSIDE RECORDS SUMMARY | 2024-11-17 09:52 | XMS_ITS | Encounter Summary ---
Author Organization [facility] Address [address] [place] [place] [address] Care Team Providers Care Graining Operator Name Role Phone Eric Vu MD Primary Care Provider [phone] Encounter Details Date Type Department Care Team (Late st Contact Info) Description 04/25/2018 Lab Requisition [facility] Care DermPath Lab [address] [place] [address] Kend[place] [address] Social History Tobacco Use Types Packs/Day Years Used Date Smoking Tobacco: Never Assessed Comments Unknown Sex and Gender Information Value Date Recorded Sex Assigned at Not on file Legal Sex Female 5:50 PM HIGH SCHOOL COUNSELOR Gender Identity Not on file Sexual Orientation Not on file documented as of this encounter Plan of Treatment Not on file documented as of this encounter Procedures Procedure Name Priority Date/Time Associated Diagnosis Comments IMMUNOFLUORESCENT STUDY DERM Routine 04/24/2018 12:00 AM HIGH SCHOOL COUNSELOR documented in this encounter Results * IMMUNOFLUORESCENT STUDY DERM (04/24/2018 12:00 AM HIGH SCHOOL COUNSELOR) Case Report Dermatopathol ogy Report Case: [id number] Authorizing Provider: Kendall Hinton MD Collected: 04/24/2018 12:00 AM Pathologist: Loretta Zhang MD Received: 04/25/2018 01:59 PM Specimen: Skin, left proximal forearm 9 6:02 PM HIGH SCHOOL COUNSELOR DERMATOPATHOLOGY LABORATORY Final Diagnosis Specimen A. SKIN, left proximal forearm: COLLOID BODIES (L98.9) (see microscopic description and comment) (see fixed tissue results, [id number]) 9 6:02 PM HIGH SCHOOL COUNSELOR DERMATOPATHOLOGY LABORATORY at [address] HIGH SCHOOL COUNSELOR Direct Immunofluorescence Report - Specimen A Specimen A IgA IgM IgG C3 CollV Fibrinogen Epidermis Negative Negative Negative Negative Negative Negative Basement Membrane Negative Negative Negative Negative 2+ Negative Vessels Negative Negative Negative Negative 2+ Negative Interstitium Colloid bodies Colloid bodies Colloid bodies Negative Negative Non specific 9 6:02 PM HIGH SCHOOL COUNSELOR DERMATOPATHOLOGY LABORATORY Clinical History R/O blister disorder, hand foot and mouth disease. 9 6:02 PM [facility] DERMATOPATHOLOGY LABORATORY Gross Description Specimen A: Received is one Benedicto's media filled container labeled with the patient's name and designated left proximal forearm. The specimen consists of a punch biopsy measuring [id number]. The specimen is submitted in whole for direct immunofluores cence testing. 9 6:02 PM [facility] DERMATOPATHOLOGY LABORATORY Microscopic Description [...] chronic irritation / rubbing. 9 6:02 PM [facility] DERMATOPATHOLOGY LABORATORY Disclaimer An external and internal positive and negative controls are appropriate for the histochemical , immunohistoch emical and immunofluores cence stain(s) in this case (if any), except where stated explicitly. The performance characteristi cs of the stain(s) cited in this report were developed and its performance characteristi c determined by the Dermatopathol ogy Laboratory at [facility], directed by Dr. Mary Whitlock. These tests need not be, and therefore are not, approved by the [place] Food and Drug Administratio n. The tests are used for clinical purposes. Billing Codes Specimen Charges Stain Charges 56144 37783 99268 64510 42448 31786 1 1 1 1 1 1 9 6:02 PM [facility] DERMATOPATHOLOGY LABORATORY Embedded Images 9 6:02 PM [facility] DERMATOPATHOLOGY LABORATORY Pathology/Cytolog y TISSUE SPECIMEN FROM SKIN / Unknown 04/24/2018 04/25/2018 1:59 PM HIGH SCHOOL COUNSELOR Kendall Hinton MD LAB - PATHOLOGY/CYTOLOGY ORD ERABLES Final Result DERMATOPATHOLOGY LABORATORY [facility] - Department of Dermatology [address] [place] [address], [address]th Floor Lab [address] [phone] documented in this encounter Visit Diagnoses Not on filedocumented in this encounter Care Teams Graining Operator Relationship Specialty Start Date End Date Eric Vu MD [address] [place] [address] PCP - General 04/18/17 documented as of this encounter
--- OUTSIDE RECORDS SUMMARY | 2024-11-17 09:52 | XMS_ITS | Clinical Summary ---
Author Organization [facility] Address [address] [place] [address] Care Team Providers Care Clinical Data Assistant Name Role Phone Eric Vu MD [...] on file Legal Sex Female 11:34 AM PRODUCTION EXPEDITER Gender Identity Not on file Sexual Orientation Not on file Last Filed Vital Signs Vital Sign Reading Time Taken Comments Blood Pressure 129/83 04/26/2017 2:05 PM PRODUCTION EXPEDITER Pulse 81 04/26/2017 2:05 PM PRODUCTION EXPEDITER Temperature 36.4 C (97.6 F) 04/26/2017 2:05 PM PRODUCTION EXPEDITER Respiratory Rate 16 04/20/2017 11:24 AM PRODUCTION EXPEDITER Oxygen Saturation - - Inhaled Oxygen Concentration - - Weight 59.1 kg (130 lb 3.2 oz) 04/26/2017 2:05 P M PRODUCTION EXPEDITER Height 170.2 cm (5' 7) 04/26/2017 2:05 PM PRODUCTION EXPEDITER Body Mass Index 20.39 04/26/2017 2:05 PM PRODUCTION EXPEDITER Plan of Treatment Health Maintenance Due Date [...] 2018 ZOSTER VACCINE Completed 07/12/2018, 03/20/2018 Insurance [facility] [employer] Care Teams Clinical Data Assistant Relationship Specialty Start Date End Date Eric Vu MD PCP - General Internal Medicine 04/20/17
--- OUTSIDE RECORDS SUMMARY | 2024-11-17 09:52 | XMS_ITS | Encounter Summary ---
Author Organization [facility] Address [address] [place] [address] Care Team Providers Care Narcotics And/Or Vice Detective Name Role Phone Eric Vu MD Primary Care Provider + Noah Mckee MD Unavailable Rick Redmond MD Unavailable [phone] Deandre Mayberry DO Primary Care Provider [phone] Noah Mckee MD Unavailable Ailin Rodríguez MD Unavailable Fantasma Poole Chi, MD Unavailable Mandy Lee DO Unavailable Encounter Details Date Type Department Care Team (Late st Contact Info) Description 05/01/2017 [facility] [address] [place] [address] Noah Mckee MD [address] [facility] [address] [place] [address] Social History Tobacco Use Types Packs/Day Years Used Date Smoking Tobacco: Former Smokeless Tobacco: Never Alcohol Use Standard Drinks/Week Comments Yes 0 (1 standard drink = 0.6 oz pur e alcohol) Comments Unknown Sex and Gender Information Value Date Recorded Sex Assigned at Not on file Legal Sex Female 3:08 AM EMBALMER APPRENTICE Gender Identity Not on file Sexual Orientation Not on file documented as of this encounter Plan of Treatment Not on file documented as of this encounter Visit Diagnoses Not on filedocumented in this encounter Additional Health Concerns Infection Onset Date Last Indicated Resolved Time COVID: Suspected 09/08/2020 09/08/2020 09/08/2020 8:44 PM CDT documented as of this encounter Care Teams Narcotics And/Or Vice Detective Relationship Specialty Start Date End Date Eric Vu MD PCP - General 04/11/17 09/17/18 Deandre Mayberry DO [address] [place] [address] PCP - General 09/18/18 Noah Mckee MD [address] [place], [place] [id number] Medical Oncologist/Hematologis t Medical Oncology 09/19/17 Rick Redmond MD [address] [place] [address] Referring Physician Hematology 09/19/17 Noah Mckee MD [address] [place] [address] Medical Oncologist/Hematologis t Medical Oncology 02/10/19 Ailin Rodríguez MD [address] [place] [address] Consulting Physician Radiation Oncology 10/14/19 Fantasma Poole Chi, MD [address] [place] [address] Pulmonary Disease 10/27/20 Mandy Lee DO [address] [facility] [address] [place] [address] Consulting Physician Endocrinology Diabetes & Metabolism 01/07/21 documented as of this encounter
--- OUTSIDE RECORDS SUMMARY | 2024-11-17 09:52 | XMS_ITS | Encounter Summary ---
Author Organization [facility] Address [address] [facility] [place] [address] Care Team Providers Care Smoking Pipe Coater Name Role Phone Eric Vu MD Primary Care Provider [phone] Encounter Details Date Type Department Care Team (Late st Contact Info) Description 04/11/2018 Lab Requisition [facility] Care DermPath Lab [address] [place] [address] Kendall Hinton MD [address] [place] [address] Social History Tobacco Use Types Packs/Day Years Used Date Smoking Tobacco: Never Assessed Comments Unknown Sex and Gender Information Value Date Recorded Sex Assigned at Not on file Legal Sex Female 5:50 PM RACK LOADER Gender Identity Not on file Sexual Orientation Not on file documented as of this encounter Plan of Treatment Not on file documented as of this encounter Procedures Procedure Name Priority Date/Time Associated Diagnosis Comments DERMATOPATHOLOGY Routine 04/10/2018 12:0 0 AM RACK LOADER documented in this encounter Results * DERMATOPATHOLOGY (04/10/2018 12:00 AM RACK LOADER) Case Report Dermatopathology Report Case: [id number] Authorizing Provider: Kendall Hinton MD Collected: 04/10/2018 12:00 AM Pathologist: Loretta Zhang MD Received: 04/11/2018 12:13 PM Specimen: Skin, right of midline frontal scalp 9 1:10 PM RACK LOADER DERMATOPATHOLOGY LABORATORY Final Diagnosis Specimen A. SKIN, right of midline frontal scalp: INTRADERMAL MELANOCYTIC NEVUS (D22.4) 9 1:10 PM RACK LOADER DERMATOPATHOLOGY LABORATORY at [address] RACK LOADER Clinical History R/O EIC vs SK. 1:10 PM RACK LOADER DERMATOPATHOLOGY LABORATORY Gross Description Specimen A: Received is one formalin filled container labeled with the patient's name and designated right of midline frontal scalp. The specimen consists of a punch biopsy measuring [id number], bisected. Jar 0. 1:10 PM RACK LOADER DERMATOPATHOLOGY LABORATORY Microscopic Description Specimen A. SKIN, right of midline frontal scalp: There are nests of cytologically bland melanocytes within the dermis that mature with depth. 1:10 PM RACK LOADER DERMATOPATHOLOGY LABORATORY Disclaimer An external and internal positive and negative controls are appropriate for the histochemical, immunohistochemical and immunofluorescence stain(s) in this case (if any), except where stated explicitly. The performance characteristics of the stain(s) cited in this report were developed and its performance characteristic determined by the Dermatopathology Laboratory at [facility], directed by Dr. Mary Whitlock. These tests need not be, and therefore are not, approved by the [place] Food and Drug Administration. The tests are used for clinical purposes. Billing Codes Specimen Charges Stain Charges 32507 1 9 1:10 PM RACK LOADER DERMATOPATHOLOGY LABORATORY Embedded Images 1:10 PM RACK LOADER DERMATOPATHOLOGY LABORATORY Pathology/Cytolog y TISSUE SPECIMEN FROM SKIN / Unknown 04/10/2018 04/11/2018 12:13 PM RACK LOADER us Kendall Hinton MD LAB - PATHOLOGY/CYTOLOGY ORD ERABLES Final Result DERMATOPATHOLOGY LABORATORY [facility] - Department of Dermatology [address] [facility], [address]th [place] [address], [facility] [phone] documented in this encounter Visit Diagnoses Not on filedocumented in this encounter Care Teams Smoking Pipe Coater Relationship Specialty Start Date End Date Eric Vu MD [address] [place] [address] PCP - General 04/18/17 documented as of this encounter
--- OUTSIDE RECORDS SUMMARY | 2024-11-17 09:52 | XMS_ITS | Encounter Summary ---
Author Organization [facility] Address [address] [place] [address] Care Team Providers Care Before And After School Daycare Worker Name Role Phone Unavailable Primary Care Provider Unavailabl e Encounter Details Date Type Department Care Team (Latest Contact Info) Description 01/29/[address] [facility] , Generic Conversion, Social History [...]
--- OUTSIDE RECORDS SUMMARY | 2024-11-17 09:52 | XMS_ITS | Encounter Summary ---
Author Organization [facility] Address [address] [place] [address] Care Team Providers Care Senior Marketing Coordinator Name Role Phone Eric Vu MD Primary Care Provider [phone] Encounter Details Date Type Department Care Team (Late st Contact Info) Description 04/25/2018 Lab Requisition [facility] DermPath Lab [address] [place] [address] Kendall Hinton MD [address] [place] [address] Social History Tobacco Use Types Packs/Day Years Used Date Smoking Tobacco: Never Assessed Comments Unknown Sex and Gender Information Value Date Recorded Sex Assigned at Not on file Legal Sex Female 5:50 PM COLLECTIONS SPECIALIST Gender Identity Not on file Sexual Orientation Not on file documented as of this encounter Plan of Treatment Not on file documented as of this encounter Procedures Procedure Name Priority Date/Time Associated Diagnosis Comments DERMATOPATHOLOGY Routine 04/24/2018 12:0 0 AM COLLECTIONS SPECIALIST documented in this encounter Results * DERMATOPATHOLOGY (04/24/2018 12:00 AM COLLECTIONS SPECIALIST) Case Report Dermatopathology Report Case: [id number] Authorizing Provider: Kendall Hinton MD Collected: 04/24/2018 12:00 AM Pathologist: Loretta Zhang MD Received: 04/25/2018 01:57 PM Specimens: A) - Skin, left chest B) - Skin, left prooximal forearm 9 6:01 PM COLLECTIONS SPECIALIST DERMATOPATHOLOGY LABORATORY Final Diagnosis Specimen A. SKIN, left chest: SUPERFICIAL AND DEEP PERIVASCULAR LYMPHOCYTIC INFILTRATE WITH EOSINOPHILS (L30.8) (see microscopic description and comment) (see direct immunofluorescence results, [id number]) Specimen B. SKIN, left proximal forearm: SUPERFICIAL AND DEEP PERIVASCULAR LYMPHOCYTIC INFILTRATE WITH EOSINOPHILS (L30.8) (see microscopic description and comment) (see direct immunofluorescence results, [id number]) 9 6:01 PM [facility] DERMATOPATHOLOGY LABORATORY at [address] COLLECTIONS SPECIALIST Clinical History A-B: R/O blister disorder, hand foot and mouth disease. 9 6:01 PM [facility] DERMATOPATHOLOGY LABORATORY Gross Description Specimen A: Received is one formalin filled container labeled with the patient's name and designated left chest. The specimen consists of a punch biopsy measuring [id number], bisected. Jar 0. Specimen B: Received is one formalin filled container labeled with the patient's name and designated left prooximal forearm. The specimen consists of a punch biopsy measuring 8g3m4wk, bisected. Jar 0. 9 6:01 PM [facility] [...] a bullous contact dermatitis. The histology of gdkh-kwtu-oazxc disease is not specific, but usually shows dyskeratosis and is neutrophil-predomin ant. Thus, while it cannot be completely excluded, it is felt to be less likely The direct immunofluorescence results do not support an immunobullous process. See direct immunofluorescence results. Specimen B. SKIN, left proximal forearm: See microscopic description and comment for Specimen A. 9 6:01 PM [facility] DERMATOPATHOLOGY LABORATORY Disclaimer An external and internal positive and negative controls are appropriate for the histochemical, immunohistochemical and immunofluorescence stain(s) in this case (if any), except where stated explicitly. The performance characteristics of the stain(s) cited in this report were developed and its performance characteristic determined by the Dermatopathology Laboratory at [facility], directed by Dr. Mary Whitlock. These tests need not be, and therefore are not, approved by the [place] Food and Drug Administration. The tests are used for clinical purposes. Billing Codes Specimen Charges Stain Charges 76256 24158 1 1 9 6:01 PM COLLECTIONS SPECIALIST DERMATOPATHOLOGY LABORATORY Embedded Images 9 6:01 PM COLLECTIONS SPECIALIST DERMATOPATHOLOGY LABORATORY Pathology/Cytology TISSUE SPECIMEN FROM SKIN / Unknown 04/24/2018 04/25/2018 1:57 PM COLLECTIONS SPECIALIST Miscellaneous samples (specimen) TISSUE SPECIMEN FROM SKIN / Unknown 04/24/2018 04/25/2018 1:57 PM COLLECTIONS SPECIALIST Kendall Hinton MD LAB - PATHOLOGY/CYTOLOGY ORD ERABLES Final Result DERMATOPATHOLOGY LABORATORY [facility] - Department of Dermatology [address] [place] [address] [address] [phone] documented in this encounter Visit Diagnoses Not on filedocumented in this encounter Care Teams Senior Marketing Coordinator Relationship Specialty Start Date End Date Eric Vu MD [address] [place] [phone] PCP - General 04/18/17 documented as of this encounter
--- OUTSIDE RECORDS SUMMARY | 2024-11-17 09:52 | XMS_ITS | Clinical Summary ---
Author Organization [facility] Address [address] [place] [address] Care Team Providers Care Cartography/Mapping Technician Name Role Phone Eric Vu MD Primary Care Provider [phone] Source Comments [facility],non-owned Affiliates and Associated Physician Practices is amultiple site organization consisting of ambulatory clinics and hospital sitesin [place] and [place]. This disclosure is being madepursuant to the Care Everywhere program and may not contain all information available regarding this patient. Last updated 17.[email or web address] [email or web address] Social History Tobacco Use Types Packs/Day Years Used Date Smoking Tobacco: Never Assessed Comments Unknown Sex and Gender Information Value Date Recorded Sex Assigned at Not on file Legal Sex Female 5:50 PM MICRO PHOTOGRAPHER Gender Identity Not on file Sexual Orientation [...] patient's age to complete this topic Insurance [facility] Care Teams Cartography/Mapping Technician Relationship Specialty Start Date End Date Eric Vu MD [address] [place] [phone] PCP - General 04/18/17
--- OUTSIDE RECORDS SUMMARY | 2024-11-17 09:52 | XMS_ITS | Encounter Summary ---
Author Organization [facility] Address [address] [place] [address] Care Team Providers Care Final Canoe Inspector Name Role Phone Eric Vu MD Primary Care Provider [phone] Encounter Details Date Type Department Care Team (Late st Contact Info) Description 03/09/2021 Lab Requisition [facility] DermPath Lab [address] [place] [address] Kendall Hinton MD [address] [place] [address] Social History Tobacco Use Types Packs/Day Years Used Date Smoking Tobacco: Never Assessed Comments Unknown Sex and Gender Information Value Date Recorded Sex Assigned at Not on file Legal Sex Female 5:50 PM GOLF SHOE SPIKE ASSEMBLER Gender Identity Not on file Sexual Orientation Not on file documented as of this encounter Plan of Treatment Not on file documented as of this encounter Procedures Procedure Name Priority Date/Time Associated Diagnosis Comments DERMATOPATHOLOGY Routine 03/08/2021 12:0 0 AM GOLF SHOE SPIKE ASSEMBLER documented in this encounter Results * DERMATOPATHOLOGY (03/08/2021 12:00 AM GOLF SHOE SPIKE ASSEMBLER) Case Report Dermatopathology Report Case: [id number] Authorizing Provider: Kendall Hinton MD Collected: 03/08/2021 12:00 AM Ordering Location: [facility] DermPath Lab Received: 03/09/2021 12:43 PM Pathologist: Mandy Noguera MD Specimen: Skin, scalp vertex 4:27 PM GOLF SHOE SPIKE ASSEMBLER DERMATOPATHOLOGY LABORATORY Final Diagnosis Specimen A. SKIN, scalp vertex: FIBROSING GRANULATION TISSUE WITH OVERLYING IMPETIGINIZED AND INFLAMED SERUM SCALE CRUST (L90.5) DERMAL SCAR (see microscopic description and comment) 1 4:27 PM [facility] DERMATOPATHOLOGY LABORATORY at [address] GOLF SHOE SPIKE ASSEMBLER Clinical History R/o SCC,BCC,erosive pustulosis vs HAK vs side effect everlimus 1 4:27 PM [facility] DERMATOPATHOLOGY LABORATORY Gross Description Specimen A: Received is one formalin filled container labeled with the patient's name and designated scalp vertex. The specimen consists of a shave biopsy measuring 8x6x2 mm. Jar 0. 1 4:27 PM [facility] DERMATOPATHOLOGY LABORATORY Microscopic Description Specimen A. SKIN, [...] the correct clinical setting. 1 4:27 PM [facility] DERMATOPATHOLOGY LABORATORY Disclaimer An external and internal positive and negative controls are appropriate for the histochemical, immunohistochemical and immunofluorescence stain(s) in this case (if any), except where stated explicitly. The performance characteristics of the stain(s) cited in this report were developed and its performance characteristic determined by the Dermatopathology Laboratory at [facility], directed by Dr. Mary Whitlock. These tests need not be, and therefore are not, approved by the [place] Food and Drug Administration. The tests are used for clinical purposes. Billing Codes Specimen Charges Stain Charges 25290 1 38150 48001 1 1 1 4:27 PM [facility] DERMATOPATHOLOGY LABORATORY Embedded Images 1 4:27 PM [facility] DERMATOPATHOLOGY LABORATORY Pathology/Cytolog y TISSUE SPECIMEN FROM SKIN / Unknown 03/08/2021 03/09/2021 12:43 PM GOLF SHOE SPIKE ASSEMBLER Kendall Hinton MD LAB - PATHOLOGY/CYTOLOGY ORD ERABLES Final Result DERMATOPATHOLOGY LABORATORY [facility] - Department of Dermatology [address] [phone] documented in this encounter Visit Diagnoses Not on filedocumented in this encounter Care Teams Final Canoe Inspector Relationship Specialty Start Date End Date Eric Vu MD [address] [place] [phone] PCP - General 04/18/17 documented as of this encounter
--- OUTSIDE RECORDS SUMMARY | 2024-11-17 09:52 | XMS_ITS | Clinical Summary ---
Author Organization [facility] Address [address] [place] [address] Care Team Providers Care Guide Rail Cleaner Name Role Phone Unavailable Primary Care Provider [...]
--- OUTSIDE RECORDS SUMMARY | 2024-11-17 09:52 | XMS_ITS | Encounter Summary ---
Author Organization [facility] Address [address] [place] [address] Care Team Providers Care Phone Engineer Name Role Phone Eric Vu MD Primary Care Provider [phone] Encounter Details Date Type Department Care Team (Late st Contact Info) Description 04/15/2020 Lab Requisition [facility] DermPath Lab [address] [place] [address] Kendall Hinton MD [address] [place] [address] Social History Tobacco Use Types Packs/Day Years Used Date Smoking Tobacco: Never Assessed Comments Unknown Sex and Gender Information Value Date Recorded Sex Assigned at Not on file Legal Sex Female 5:50 PM WEB PRESS OPERATOR ASSISTANT Gender Identity Not on file Sexual Orientation Not on file documented as of this encounter Plan of Treatment Not on file documented as of this encounter Procedures Procedure Name Priority Date/Time Associated Diagnosis Comments DERMATOPATHOLOGY Routine 04/14/2020 3:27 AM WEB PRESS OPERATOR ASSISTANT documented in this encounter Results * DERMATOPATHOLOGY (04/14/2020 3:27 AM WEB PRESS OPERATOR ASSISTANT) Case Report Dermatopathology Report Case: [id number] Authorizing Provider: Kendall Hinton MD Collected: 04/14/2020 03:27 AM Ordering Location: [facility] DermPath Lab Received: 04/15/2020 01:24 PM Pathologist: Asya Whitlock MD Specimen: Skin, left mid paraspinal back 4:56 PM WEB PRESS OPERATOR ASSISTANT DERMATOPATHOLOGY LABORATORY Final Diagnosis Specimen A. SKIN, left mid paraspinal back: PIGMENTED SEBORRHEIC KERATOSIS (L82.1) 4:56 PM WEB PRESS OPERATOR ASSISTANT DERMATOPATHOLOGY LABORATORY at [address] WEB PRESS OPERATOR ASSISTANT Clinical History R/O ISK vs dys nevus. 4:56 PM [facility] DERMATOPATHOLOGY LABORATORY Gross Description Specimen A: Received is one formalin filled container labeled with the patient's name and designated left mid paraspinal back. The specimen consists of a shave biopsy measuring [id number]. Jar 0. 4:56 PM [facility] DERMATOPATHOLOGY LABORATORY Microscopic Description Specimen A. SKIN, left mid paraspinal back: Sections show an acanthotic lesion composed of relatively uniform keratinocytes. There is hyperkeratosis and pseudo horn cysts. Pigment is present in the keratinocytes composing this tumor. 4:56 PM [facility] DERMATOPATHOLOGY LABORATORY Disclaimer [...] purposes. Billing Codes Specimen Charges Stain Charges 86553 1 4:56 PM [facility] DERMATOPATHOLOGY LABORATORY Embedded Images 4:56 PM [facility] DERMATOPATHOLOGY LABORATORY Pathology/Cytolo gy TISSUE SPECIMEN FROM SKIN / Unknown 04/14/2020 3:27 AM WEB PRESS OPERATOR ASSISTANT 04/15/2020 1:24 PM [facility] us Kendall Hinton MD LAB - PATHOLOGY/CYTOLOGY ORD ERABLES Final Result DERMATOPATHOLOGY LABORATORY [facility] - Department of Dermatology [address] [phone] documented in this encounter Visit Diagnoses Not on filedocumented in this encounter Care Teams Phone Engineer Relationship Specialty Start Date End Date Eric Vu MD [address] [place] [address] PCP - General 04/18/17 documented as of this encounter
--- OUTSIDE RECORDS SUMMARY | 2024-11-17 09:52 | XMS_ITS | Encounter Summary ---
Author Organization [facility] Address [address] [place] [address] Care Team Providers Care Toll Ticket Clerk Name Role Phone Noah Mckee MD Unavailable Rick Redmond MD Unavailable [phone] Deandre Mayberry DO Primary Care Provider [phone] Noah Mckee MD Unavailable Ailin Rodríguez MD Unavailable Fantasma Poole Chi, MD Unavailable Mandy Lee DO Unavailable Encounter Details Date Type Department Care Team (Late st Contact Info) Description 09/15/2019 Telephone [facility]iology [facility] [address] [place] [address] Kortney Mayes, RT Social History Tobacco Use Types Packs/Day Years Used Date Smoking Tobacco: Former Cigarettes Smokeless Tobacco: Never Alcohol Use Standard Drinks/Week Comments Yes 0 (1 standard drink = 0.6 oz pur e alcohol) Comments No Sex and Gender Information Value Date Recorded Sex Assigned at Not on file Legal Sex Female 3:08 AM CUT IN STATION OPERATOR Gender Identity Not on file Sexual Orientation Not on file documented as of this encounter Plan of Treatment Not on file documented as of this encounter Visit Diagnoses Not on filedocumented in this encounter Additional Health Concerns Infection Onset Date Last Indicated Resolved Time COVID: Suspected 09/08/2020 09/08/2020 09/08/2020 8:44 PM CDT documented as of this encounter Care Teams Toll Ticket Clerk Relationship Specialty Start Date End Date Deandre Mayberry DO [address] [place] [address] PCP - General 09/18/18 Noah Mckee MD [address] [facility] [address] [place] [address] Medical Oncologist/Hematologis t Medical Oncology 09/19/17 Rick Redmond MD [address] [place] [phone] Referring Physician Hematology 09/19/17 Noah Mckee MD [address] [place] [address] Medical Oncologist/Hematologis t Medical Oncology 02/10/19 Ailin Rodríguez MD [address] [facility] [address] [place] [address] Consulting Physician Radiation Oncology 10/14/19 Fantasma Poole Chi, MD [address] [facility] [address] [place] [address] Pulmonary Disease 10/27/20 Mandy Lee DO [address] [facility] [address] [place] [address] Consulting Physician Endocrinology Diabetes & Metabolism 01/07/21 documented as of this encounter
--- OUTSIDE RECORDS SUMMARY | 2024-11-17 09:53 | XMS_ITS | Clinical Summary ---
Author Organization [facility] [address] Address [address] [place] [address] Care Team Providers Care Pyridine Recovery Operator Name Role Phone Noah Mckee MD Unavailable Rick Redmond MD Unavailable [phone] Deandre Mayberry DO Primary Care Provider [phone] Noah Mckee MD Unavailable Ailin Rodríguez MD Unavailable Fantasma Poole Chi, MD Unavailable [phone] Mandy Lee DO Unavailable Allergies Active Allergy Reactions Criticality Noted Date Comments Amoxicillin Rash Medium 04/30/2017 Minocycline Other (See comments) Low 04/26/2017 When given with Spironolactone patient has severe pain and high blood pressure. Spironolactone Other (See comments) Low 06/07/2009 When given with Minocin patient has severe pain and high blood pressure. hypertension Medications vit D3-vit Y-mtgpoarkr-vkrm [id number] spbn-tvu-dz-mg tablet Take by mouth Active multivitamin tabletIndication [...] aspgly,ps-C-B12- FA-Ca-suc (Ferrex 150 Forte Plus) 150-60-25-1 wx-py-pwk-mg capsuleIndicatio ns:Iron deficiency anemia, unspecified iron deficiency [...] 04/03/2024 Assessment & Plan (04/03/2024 1:17 PM POMPOM MAKER): Stable continue Crestor Bilateral carotid artery stenosis 10/05/2023 Assessment & Plan (04/03/2024 1:17 PM POMPOM MAKER): Stable bilateral moderate asymptomatic ICA stenosis. Continue [...] 10/05/2023 Assessment & Plan (04/03/2024 1:17 PM POMPOM MAKER): Stable continue amlodipine Assessment & Plan (10/05/2023 [...] Team Description 11/03/2024 10:45 AM CDT Infusion [facility] at [address] [address] Malignant neuroendocrine neoplasm (HCC) (Primary Dx) 11/02/2024 Orders Only [facility] Medicine Oncology [address] [place] [address] Noah Mckee MD 10/06/2024 10:15 AM CDT Infusion [facility] at [address] [address] Malignant neuroendocrine neoplasm (HCC) (Primary Dx) 10/06/2024 9:45 AM CDT Lab [facility] [address] [place] [address] Malignant neuroendocrine neoplasm (HCC) 10/03/2024 Telephone [facility] Scheduling [address] [place] [address] Celeste Chávez MD PhD Scheduling Appointments 09/08/2024 11:15 AM CDT Infusion [facility] [address] [place] [address] Malignant neuroendocrine neoplasm (HCC) (Primary Dx) 09/08/2024 [facility] [address] [place] [address] Noah Mckee MD 09/08/2024 Orders Only [facility] Oncology [address] [place] [id number] Noah Mckee MD 09/02/2024 Orders Only [facility] Medicine Oncology [address] [place] [id number] Noah Mckee MD 08/27/2024 Documentation [facility] [address] [facility] [address] [place] [address] Pamela Larson RMA PRIOR AUTH/PAP- EVEROLIMUS 08/26/2024 Orders Only [facility] Medicine Oncology [address] [place] [id number] Noah Mckee MD 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 Testing performed by: [facility] [place] [address] Blood 10/06/2024 9:39 AM CDT 10/06/2024 9:50 AM CDT Noah Mckee MD LAB BLOOD ORDERABLES Allie carballo Result [facility]A [address] Department [place] [address] * Differential, auto (10/06/2024 9:39 AM CDT) Pathologist [facility] Neutrophil abs 3.18 1.50 - 6.50 K/cumm Comment:Testing performed by : [facility] [place] [address] Imm gran abs 0.01 0.00 - 0.10 K/cumm PRATIK VERA Comment:Testing performed by : [facility] [place] [address] Lymphocyte abs 1.52 0.80 - 3.30 K/cumm CERNER CH Comment:Testing performed by : [facility] [place] [address] Monocyte abs 0.49 0.20 - 0.80 K/cumm CERNER CH Comment:Testing performed by : [facility] [place] [address] Eosinophil abs 0.13 0.00 - 0.50 K/cumm CERNER CH Comment:Testing performed by : [facility] [place] [address] Basophil abs 0.03 0.00 - 0.10 K/cumm CERNER CH Comment:Testing performed by : [facility] [place] [address] Neutrophil pct 59.3 % CERNER CH Comment: Interpretive Data Percent cell count reference ranges are not reported, since discordance with absolute values may lead to misinterpretation of CBC data. Current Interpretive Data was last revised on 2017. Testing performed by: [facility] [place] [address] Imm gran pct 0.2 % CERNER CH Comment: Interpretive Data Percent cell count reference ranges are not reported, since discordance with absolute values may lead to misinterpretation of CBC data. Current Interpretive Data was last revised on 2017. Testing performed by: [facility] [place] [address] Lymphocyte pct 28.4 % CERNER CH Comment: Interpretive Data Percent cell count reference ranges are not reported, since discordance with absolute values may lead to misinterpretation of CBC data. Current Interpretive Data was last revised on 2017. Testing performed by: [facility] [place] [address] Monocyte pct 9.1 % CERNER CH Comment: Interpretive Data Percent cell count reference ranges are not reported, since discordance with absolute values may lead to misinterpretation of CBC data. Current Interpretive Data was last revised on 2017. Testing performed by: [facility] [place] [address] Eosinophil pct 2.4 % CERNER CH Comment: Interpretive Data Percent cell count reference ranges are not reported, since discordance with absolute values may lead to misinterpretation of CBC data. Current Interpretive Data was last revised on 2017. Testing performed by: [facility] [place] [address] Basophil pct 0.6 % PRATIK Comment: Interpretive Data Percent cell count reference ranges are not reported, since discordance with absolute values may lead to misinterpretation of CBC data. Current Interpretive Data was last revised on 2017. Testing performed by: [facility] [place] [address] Blood 10/06/2024 9:39 AM CDT 10/06/2024 9:50 AM CDT Noah Mckee MD LAB BLOOD ORDERABLES Allie carballo Result PR[facility] [address] Department of Laboratories [place], [place] [id number] * (ABNORMAL) CBC with auto differential (10/06/2024 9:39 AM CDT) WBC 5.36 3.80 - 9.90 K/cumm Comment:Testing performed by : [facility] [place] [address] Hgb 14.0 11.9 - 15.5 g/dL PRATIK Comment:Testing performed by : [facility] [place] [address] Hct 42.8 35.6 - 45.5 % PRATIK Comment:Testing performed by : [facility] [place] [address] Plt 287 150 - 400 K/cumm PRATIK Comment:Testing performed by : [facility] [place] [address] MPV 9.5 9.1 - 12.3 fL PRATIK Comment:Testing performed by : [facility] [place] [address] RBC 5.26(H) 3.90 - 5.20 M/cumm PRATIK Comment:Testing performed by : [facility] [place] [address] MCV 81.4 81.3 - 96.4 fL PRATIK VERA Comment:Testing performed by : [facility] [place] [address] MCH 26.6(L) 27.1 - 33.3 pg PRATIK VERA Comment:Testing performed by : [facility] [place] [address] MCHC 32.7 32.3 - 35.7 g/dL PRATIK VERA Comment:Testing performed by : [facility] [place] [address] RDW CV 13.2 11.1 - 14.9 % PRATIK VERA Comment:Testing performed by : [facility] [place] [address] RDW SD 39.0 35.7 - 48.1 fL PRATIK VERA Comment:Testing performed by : [facility] [place] [address] NRBC abs 0.00 0.00 - 0.01 K/cumm PRATIK VERA Comment:Testing performed by : [facility] [place] [address] ANC Prelim 3.18 1.50 - 6.50 K/cumm PRATIK VERA Comment: Interpretive Data The rapid ANC is a preliminary automated count and may vary from the final ANC (Neut Abs) reported in the WBC differential that follows. Current interpretive data was last revised 2024. Testing performed by: [facility] [place] [address] Blood 10/06/2024 9:39 AM CDT 10/06/2024 9:50 AM CDT Noah Mckee MD LAB BLOOD ORDERABLES Allie l Result [facility] [address] Department [place] [address] * (ABNORMAL) Lipid panel (10/06/2024 9:39 AM [...] on 2017. Triglycerides 123 <=149 mg/dL PRATIK Comment: Interpretive Data Ages < or = [...] on 2017. HDL 73 >=40 mg/dL PRATIK Comment: Interpretive Data Ages < or = 19 years Acceptable: >45 mg/dL Borderline low: 40-45 mg/dL Low: <40 mg/dL Ages > or = 20 years Desirable: >or= 60 mg/dL Low: <40 mg/dL Literature References: 1. Expert Panel on Integrated Guidelines for Cardiovascular Health and Risk Reduction in Children and Adolescents. Pediatrics 2011;128:S213 2. NCEP Expert Panel. Circulation 2003;110:227 Current Interpretive Data was last revised on 2017. LDL, calculated 135(H) <=129 mg/dL PRATIK Comment: Interpretive Data Ages < or = [...] 3. Zhen M et al. DIONISIO Cardiol. 2019July 24;5(5):540-548. doi: [...] LAB BLOOD ORDERABLES Allie carballo Result PR[facility]IK [address] Department [place] [address] * (ABNORMAL) Comprehensive metabolic panel (10/06/2024 9:39 AM CDT) Sodium 139 135 - 145 mmol/L Comment:Testing performed by : [facility] [place] [address] Potassium, pl 4.4 3.3 - 4.9 mmol/L PRATIK VERA Comment:Testing performed by : [facility] [place] [address] Chloride 100 97 - 110 mmol/L CERNER CH Comment:Testing performed by : [facility] [place] [address] CO2 29 22 - 32 mmol/L CERNER CH Comment:Testing performed by : [facility] [place] [address] Anion gap 10 2 - 15 mmol/L CERNER CH Comment:Testing performed by : [facility] [place] [address] BUN 23 6 - 25 mg/dL CERNER CH Comment:Testing performed by : [facility] [place] [address] Creatinine 1.20(H) 0.60 - 1.10 mg/dL CERNER CH Comment:Testing performed by : [facility] [place] [address] Glucose 117 70 - 199 mg/dL CERNER [...] was last revised 2022. Testing performed by: [facility] [place] [address] Calcium 9.0 8.5 - 10.3 mg/dL CERNER CH Comment:Testing performed by : [facility] [place] [address] Bilirubin, total 0.5 0.1 - 1.2 mg/dL CERNER CH Comment:Testing performed by : [facility] [place] [address] Protein, pl 6.2(L) 6.5 - 8.5 g/dL CERNER CH Comment:Testing performed by : [facility] [place] [address] Albumin 3.8 3.5 - 5.0 g/dL CERNER CH Comment:Testing performed by : [facility] [place] [address] Alk phos 94 40 - 130 Units/L CERNER CH Comment:Testing performed by : [facility] at [facility] [place] [address] ALT 34 7 - 45 Units/L CERNER CH Comment:Testing performed by : [facility] at [facility] [place] [address] AST 46(H) 10 - 45 Units/L CERNER CH Comment:Testing performed by : [facility] at [facility] [place] [address] Blood 10/06/2024 9:39 AM CDT 10/06/2024 9:50 AM CDT Noah Mckee MD LAB BLOOD ORDERABLES Allie l Result [facility] [address] Department [place] [address] * FIT occult blood, fecal (06/15/2022 9:30 AM CDT) Pathologist [facility] Occult blood, fecal Negative Negative [facility] - 01 06/15/2022 9:30 AM CDT 06/15/2022 Comment: Tierney [facility] - 06/16/2022 4:11 PM CDT Performed at: - [address] [id number] Work And Family Life Consultant: Abiel Cruz PhD, Phone: [phone] Noah Mckee MD LAB BODY FLUIDS AND STOOL S ORDERABLES Final Result [facility] - 01 * Hepatitis panel, acute (02/10/2019 9:30 AM POMPOM MAKER) Hep A IgM Negative Negative [facility] Hep B core IgM Negative Negative [facility] Hep C Ab Negative Negative [facility] HepBsAg Nonreactive Nonreactive [facility] Blood specimen (specimen) 02/10/2019 9:30 AM POMPOM MAKER 02/10/2019 10:33 AM POMPOM MAKER us Noah Mckee MD LAB MICROBIOLOGY - GENERA L ORDERABLES Final Result [facility] [address] Department [place] [address] from Last 3 Months or Most Recently Relevant to Health Maintenance Insurance [employer] [place] MEDICARE [place] MEDICARE [facility] [place] [address] [place] [phone] [facility] MEDICARE [facility] Care Teams Pyridine Recovery Operator Relationship Specialty Start Date End Date Deandre Mayberry DO [address] [place] [id number] PCP - General 09/18/18 Noah Mckee MD [address] [place] [address] Medical Oncologist/Hematologis t Medical Oncology 09/19/17 Rick Redmond MD [address] [place] [address] Referring Physician Hematology 09/19/17 Noah Mckee MD [address] [place] [address] Medical Oncologist/Hematologis t Medical Oncology 02/10/19 Ailin Rodríguez MD [address] [place] [address] Consulting Physician Radiation Oncology 10/14/19 Fantasma Poole Chi, MD [address] [place], [place] [id number] Pulmonary Disease 10/27/20 Mandy Lee DO [address] [facility] [address] [place] [address] Consulting Physician Endocrinology Diabetes & Metabolism 01/07/21
--- OUTSIDE RECORDS SUMMARY | 2024-11-17 09:53 | XMS_ITS ---
Author Organization [facility] [address] Address [address] [place] [address] Care Team Providers Care Public Health Inspector Name Role Phone Noah Mckee MD Unavailable Rick Redmond MD Unavailable [phone] Deandre Mayberry DO Primary Care Provider [phone] Noah Mckee MD Unavailable Ailin Rodríguez MD Unavailable Fantasma Poole Chi, MD Unavailable Mandy Lee DO Unavailable [phone] Active Problems Problem Noted Date Diagnosed Date Mixed hyperlipidemia 04/03/2024 Assessment & Plan (04/03/2024 1:17 PM DECKHAND TUNA BOAT): Stable continue Crestor Bilateral carotid artery stenosis 10/05/2023 Assessment & Plan (04/03/2024 1:17 PM DECKHAND TUNA BOAT): Stable bilateral moderate asymptomatic ICA stenosis. Continue [...] 10/05/2023 Assessment & Plan (04/03/2024 1:17 PM DECKHAND TUNA BOAT): Stable continue amlodipine Assessment & Plan (10/05/2023 [...]
--- OUTSIDE RECORDS SUMMARY | 2024-11-17 09:53 | XMS_ITS | Encounter Summary ---
Author Organization [facility] Address [address] [place] [address] Phone Care Team Providers Care Market Risk Specialist Name Role Phone Noah Mckee MD Unavailable Rick Redmond MD Unavailable [phone] Deandre Mayberry DO Primary Care Provider [phone] Noah Mckee MD Unavailable Ailin Rodríguez MD Unavailable Fantasma Poole Chi, MD Unavailable [phone] Mandy Lee DO Unavailable [phone] Encounter Details Date Type Department Care Team (Late st Contact Info) Description 06/23/2022 Orders Only [facility] Medicine Oncology [address] [place] [address] Noah Mckee MD [address] [facility] [address] [place] [address] Malignant neuroendocrine neoplasm (HCC) (Primary [...] on file Legal Sex Female 3:08 AM [employer]UEST SERVICES AGENT Gender Identity Not on file Sexual Orientation [...] developed and its performance characteristics determined by [facility] in a manner consistent with CLIA requirements. [...] a homogeneous time-resolved immunofluorescent assay manufactured by [employer] and performed on the [employer] Kryptor Compact Plus. Values obtained with different assay methods or kits may be different and cannot be used interchangeably. Test results cannot be interpreted as absolute evidence for the presence or absence of malignant disease. Test Performed by: [address] [address] Absorption Plant Operator: Jimmie Meng M.D. Ph.D.; CLIA# [id number] Blood 08/07/2022 9:30 AM CDT 08/07/2022 11:11 AM CDT Noah Mckee MD LAB BLOOD ORDERABLES Allie carballo Result [facility] [address] [address] Department [place] [address] * (ABNORMAL) Comprehensive metabolic panel (08/07/2022 9:30 AM CDT) Sodium 137 135 - 145 mmol/L CERNER Comment:Testing performed by : [facility],[address] [place] [address] Potassium, pl 3.7 3.3 - 4.9 mmol/L CERNER Comment:Testing performed [facility] : [facility] [address] [place] [address] Chloride 99 97 - 110 mmol/L CERNER Comment:Testing performed by : [facility],[address] [place] [address] CO2 29 22 - 32 mmol/L CERNER Comment:Testing performed by : [facility],[address] [place] [address] Anion gap 9 2 - 15 mmol/L CERNER Comment:Testing performed [facility] : [facility] [place] [address] BUN 15 8 - 25 mg/dL CERNER Comment:Testing performed by : [facility],[address] [place] [address] Creatinine 0.94 0.60 - 1.10 mg/dL CERNER Comment:Testing performed [facility] : [facility] [address] [place] [address] Glucose 124 70 - 199 mg/dL [facility] Comment: Interpretive Data Fasting glucose >/= [...] was last revised 2022. Testing performed by: [facility],[address] [place] [address] Calcium 9.1 8.5 - 10.3 mg/dL CERNER CH Comment:Testing performed by : [facility],[address] [place] [address] Bilirubin, total 0.3 0.1 - 1.2 mg/dL CERNER CH Comment:Testing performed by : [facility],[address] [place] [address] Protein, pl 7.3 6.5 - 8.5 g/dL CERNER CH Comment:Testing performed by : [facility] [address] [place] [address] Albumin 4.4 3.5 - 5.0 g/dL CERNER CH Comment:Testing performed by : [facility] [address] [place] [address] Alk phos 106 40 - 130 Units/L CERNER CH Comment:Testing performed by : [facility],[address] [place] [address] ALT 51(H) 7 - 45 Units/L CERNER CH Comment:Testing performed by : [facility] [address] [place] [address] AST 60(H) 10 - 45 Units/L CERNER CH Comment:Testing performed by : [facility] [address] [address] Blood 08/07/2022 9:30 AM CDT 08/07/2022 9:34 AM CDT Noah Mckee MD LAB BLOOD ORDERABLES Edit ed Result - Final [facility] [address] [address] Department [place] [address] * (ABNORMAL) Serotonin serum (08/07/2022 9:30 AM CDT) Serotonin 1720(H) <=230 ng/mL CERNER CH Comment: ADDITIONAL INFORMATION This test was developed and its performance characteristics determined by [facility] in a manner consistent with CLIA requirements. This test has not been cleared or approved by the U.S. Food and Drug Administration. Test Performed by: [facility] - [facility] [address] [place] [address] Absorption Plant Operator: Jimmie Meng M.D. Ph.D.; CLIA# [id number] Blood 08/07/2022 9:30 AM CDT 08/07/2022 11:13 AM CDT Noah Mckee MD LAB BLOOD ORDERABLES Allie l Result PR[facility] [address] [facility] [place] [address] * (ABNORMAL) Iron profile w/ IBC (08/07/2022 9:30 AM CDT) Pathologist [facility] Iron 37 35 - 145 mcg/dl [facility] TIBC 292 250 - 400 mcg/dL [facility] Transferrin saturation 13(L) 20 - 50 % [facility] Blood 08/07/2022 9:30 AM CDT 08/07/2022 11:21 AM CDT Noah Mckee MD LAB BLOOD ORDERABLES Allie l Result Performing Organization Address City/[facility]/ZIP Co de Phone Number PRATIK VERA [address] [facility] [place] [address] * (ABNORMAL) CBC with auto differential (08/07/2022 9:30 AM CDT) Pathologist [facility] WBC 4.0 3.8 - 9.9 K/cumm PRATIK Comment:Testing performed by : [facility],[address] [facility] [address] Hgb 12.6 11.9 - 15.5 g/dL PRATIK Comment:Testing performed by : [facility],[address] [facility] [address] Hct 38.6 35.6 - 45.5 % CERNER CH Comment:Testing performed by : [facility],[address] [address] Plt 317 150 - 400 K/cumm CERNER CH Comment:Testing performed by : [facility],[address] [address] MPV 9.1 9.1 - 12.3 fL CERNER CH Comment:Testing performed by : [facility] [address] [address] RBC 5.08 3.90 - 5.20 M/cumm CERNER CH Comment:Testing performed by : [facility] [address] [address] MCV 76.0(L) 81.3 - 96.4 fL CERNER CH Comment:Testing performed by : [facility] [address] [address] MCH 24.8(L) 27.1 - 33.3 pg CERNER CH Comment:Testing performed by : [facility],[address] [address] MCHC 32.6 32.3 - 35.7 g/dL CERNER CH Comment:Testing performed by : [facility] [address] [address] RDW CV 15.5(H) 11.1 - 14.9 % CERNER CH Comment:Testing performed by : [place] [address] [address] RDW SD 42.5 35.7 - 48.1 fL CERNER CH Comment:Testing performed by : [place] [address] [address] NRBC abs 0.00 0.00 - 0.01 K/cumm CERNER CH Comment:Testing performed by : [facility] [address] [address] Blood 08/07/2022 9:30 AM CDT 08/07/2022 9:34 AM CDT Noah Mckee MD LAB BLOOD ORDERABLES Allie l Result PR[facility] [address] [address] Department [place] [address] documented in this encounter Visit Diagnoses Diagnosis Malignant neuroendocrine neoplasm (HCC)- Primary documented in this encounter Orders Appointment Requests Count Last Ordered Date Fi rst Ordered Date ONCBCN INJECTION APPOINTMENT REQUEST 1 07/24 ONCBCN LAB APPOINTMENT 1 08/07/2022 documented in this encounter Care Teams Market Risk Specialist Relationship Specialty Start Date End Date Deandre Mayberry DO [address] [place] [id number] PCP - General 09/18/18 Noah Mckee MD [address] [facility] [address] [place] [address] Medical Oncologist/Hematologis t Medical Oncology 09/19/17 Rick Redmond MD [address] [place] [id number] Referring Physician Hematology 09/19/17 Noah Mckee MD [address] [place] [address] Medical Oncologist/Hematologis t Medical Oncology 02/10/19 Ailin Rodríguez MD [address] [facility] [address] [place] [address] Consulting Physician Radiation Oncology 10/14/19 Fantasma Poole Chi, MD [address] [place] [address] Pulmonary Disease 10/27/20 Mandy Lee DO [address] [facility] [address] [place] [address] Consulting Physician Endocrinology Diabetes & Metabolism 01/07/21 documented as of this encounter
== END 2024-11-11 09:20 | disposition home or self-care (01) ==
LOC: ANHNEURO 11-18 06:15
PROVIDERS: PCP Internal Medicine; Visit Provider Internal Medicine
DX: C7A.8 Other malignant neuroendocrine tumors (principal); R25.8 Other abnormal involuntary movements; G56.21 Lesion of ulnar nerve, right upper limb
CPT/HCPCS: 95886; 95913